=== PATIENT | female | born 1960 | race Caucasian/White ===

== ENCOUNTER 2016-08-03 21:57 | Emergency (ER) | payer OTHER ==
[2016-08-03] MEDS ORDERED: SODIUM CHLORIDE 0.9% 500 ML IV STA (22:56)
[2016-08-03] MEDS ORDERED: RX INFO: IV CONTRAST WAS GIVEN 1 EACH MISC MISCELLANE PRN (22:56)
--- NOTE | 2016-08-03 22:59 | ED ---
General Adult HPI - General Chief complaint: Shortness of Breath Stated complaint: coughing up blood/high heart rate/SOB Time Seen by Provider: 08/03/16 22:50 Source: patient, RN notes reviewed Mode of arrival: wheelchair Limitations: no limitations - History of Present Illness Initial comments: 56-year-old female presents to the emergency department with a chief complaint of shortness of breath. Patient states that she has esophageal cancer she currently is undergoing chemo and radiation. Patient states the last 2 weeks she's noticed some shortness of breath and now she started to cough up some blood. Patient states that she does notice that she is more short of breath she and her family members called the family care doctor who wanted her to be seen. Patient states she hasn't noticed any leg swelling or pain. Patient denies any history of blood clots. Patient states that she doesn't have any chest pain but is having short of breath. Patient states that seems to be worsening so she was concerned.Patient denies any recent fever, chills, back pain, abdominal pain, nausea vomiting, numbness or tingling, dysuria or hematuria, constipation or diarrhea, headaches or visual changes, or any other current symptoms. - Related Data Home Medications Medication Instructions Recorded Confirmed ALPRAZolam [Xanax] 0.5 mg PO TID PRN 08/03/16 08/03/16 Hydrochlorothiazide [Hydrodiuril] 25 mg PO DAILY 08/03/16 08/03/16 Methylphenidate HCl 20 mg PO QID 08/03/16 08/03/16 [Methylphenidate HCl ER] Metoclopramide [Reglan] 10 mg PO TID 08/03/16 08/03/16 Nystatin 100,000 Unit/ml Susp 5 ml PO QID 08/03/16 08/03/16 [Mycostatin Oral Susp] Omeprazole 20 mg PO BID 08/03/16 08/03/16 Prochlorperazine [Compazine] 10 mg PO Q8H 08/03/16 08/03/16 Triamterene-Hctz 37.5-25Mg 1 cap PO DAILY 08/03/16 08/03/16 [Dyazide 37.5-25 Capsule] Venlafaxine HCl [Effexor XR] 150 mg PO 08/03/16 busPIRone HCL 10 mg PO BID 08/03/16 08/03/16 Allergies Allergy/AdvReac Type Severity Reaction Status Date / Time cefaclor Allergy Rash/Hives Verified 08/03/16 22:40 cephalexin Allergy Unknown Verified 08/03/16 22:40 escitalopram Allergy Unknown Verified 08/03/16 22:40 Penicillins Allergy Rash/Hives Verified 08/03/16 22:40 povidone-iodine Allergy Rash/Hives Verified 08/03/16 22:40 Review of Systems ROS Statement: Those systems with pertinent positive or pertinent negative responses have been documented in the HPI. ROS Other: All systems not noted in ROS Statement are negative. Past Medical History Past Medical History: Cancer History of Any Multi-Drug Resistant Organisms: None Reported Past Surgical History: Section, Cholecystectomy, Hysterectomy, Orthopedic Surgery Additional Past Surgical History / Comment(s): colonoscopy, oopherectomy Past Psychological History: No Psychological Hx Reported Smoking Status: Current some day smoker Past Alcohol Use History: None Reported Past Drug Use History: None Reported General Exam - General Exam Comments Initial Comments: General: The patient is awake and alert, in no distress, and does not appear acutely ill. Eye: Pupils are equal, round and reactive to light, extra-ocular movements are intact; there is normal conjunctiva bilaterally. No signs of icterus. Ears, nose, mouth and throat: There are moist mucous membranes and no oral lesions. Neck: The neck is supple, there is no tenderness. Cardiovascular: There is a regular rate and rhythm. No murmur, rub or gallop is appreciated. Respiratory: Lungs are clear to auscultation, respirations are non-labored, breath sounds are equal. No wheezes, stridor, rales, or rhonchi. Gastrointestinal: Soft, non-distended, non-tender abdomen without masses or organomegaly noted. There is no rebound or guarding present. No CVA tenderness. Bowel sounds are unremarkable. Back: There is no tenderness to palpation in the midline. There is no obvious deformity. No rashes noted. Musculoskeletal: Normal ROM, no tenderness, There is no pedal edema. There is no calf tenderness or swelling to the left. Patient does have tenderness in the right calf.. Sensation intact. Pulses equal bilaterally 2+. Neurological: CN II-XII intact, There are no obvious motor or sensory deficits. Coordination appears grossly intact. Speech is normal. Skin: Skin is warm and dry and no rashes or lesions are noted. Psychiatric: Cooperative, appropriate mood & affect, normal judgment. Limitations: no limitations Course Vital Signs 08/03/16 08/04/16 22:31 01:32 Temperature 98.5 F 97.1 F L Pulse Rate 114 H 106 H Respiratory 20 18 Rate Blood Pressure 120/75 114/69 O2 Sat by Pulse 94 L 95 Oximetry EKG Findings - EKG Comments: EKG Findings:: Sinus tachycardia, prolonged QT, ventricular rate 108, AR interval 150, QRS duration 66 Medical Decision Making - Medical Decision Making 56 yo female presents to the emergency department with a chief complaint of shortness of breath. At this time patient's CT angiogram is negative for PE. Patient's symptoms have improved here in the emergency department. Patient was offered admission for her shortness of breath but she states that now discharged blood clot she would like to go home. We did discuss we will discharge her home. Ultrasound of the right leg to just has some tenderness on exam is reviewed and as well negative. We discussed continued follow-up with her doctor. We discussed return parameters. We did hydrate the patient is well. Patient stated that she understood all questions were answered. Her oxygen did improve in the room and she is feeling better. She will be discharged. - Lab Data Result diagrams: 08/03/16 23:24 08/03/16 23:24 Lab Results 08/03/16 08/03/16 08/03/16 Range/Units 23:24 23:24 23:24 WBC 6.3 (3.8-10.6) k/uL RBC 5.17 (3.80-5.40) m/uL Hgb 16.4 H (11.4-16.0) gm/dL Hct 48.4 H (34.0-46.0) % MCV 93.6 (80.0-100.0) fL MCH 31.7 (25.0-35.0) pg MCHC 33.9 (31.0-37.0) g/dL RDW 15.0 (11.5-15.5) % Plt Count 177 (150-450) k/uL Neutrophils % 80 % Lymphocytes % 11 % Monocytes % 5 % Eosinophils % 2 % Basophils % 0 % Neutrophils # 5.0 (1.3-7.7) k/uL Lymphocytes # 0.7 L (1.0-4.8) k/uL Monocytes # 0.3 (0-1.0) k/uL Eosinophils # 0.1 (0-0.7) k/uL Basophils # 0.0 (0-0.2) k/uL PT (9.0-12.0) sec INR (<1.1) APTT (22.0-30.0) sec Sodium 138 (137-145) mmol/L Potassium 3.4 L (3.5-5.1) mmol/L Chloride 101 (98-107) mmol/L Carbon Dioxide 25 (22-30) mmol/L Anion Gap 12 mmol/L BUN 13 (7-17) mg/dL Creatinine 0.60 (0.52-1.04) mg/dL Est GFR (MDRD) Af Amer >60 (>60 ml/min/1.73 sqM) Est GFR (MDRD) Non-Af >60 (>60 ml/min/1.73 sqM) Glucose 173 H (74-99) mg/dL Calcium 9.2 (8.4-10.2) mg/dL Total Bilirubin 0.3 (0.2-1.3) mg/dL AST 24 (14-36) U/L ALT 24 (9-52) U/L Alkaline Phosphatase 88 (38-126) U/L Total Creatine Kinase 23 L (30-135) U/L CK-MB (CK-2) 0.4 (0.0-2.4) ng/mL CK-MB (CK-2) Rel Index 1.7 Troponin I <0.012 (0.000-0.034) ng/mL NT-Pro-B Natriuret Pep pg/mL Total Protein 6.6 (6.3-8.2) g/dL Albumin 3.7 (3.5-5.0) g/dL 08/03/16 08/03/16 Range/Units 23:24 23:24 WBC (3.8-10.6) k/uL RBC (3.80-5.40) m/uL Hgb (11.4-16.0) gm/dL Hct (34.0-46.0) % MCV (80.0-100.0) fL MCH (25.0-35.0) pg MCHC (31.0-37.0) g/dL RDW (11.5-15.5) % Plt Count (150-450) k/uL Neutrophils % % Lymphocytes % % Monocytes % % Eosinophils % % Basophils % % Neutrophils # (1.3-7.7) k/uL Lymphocytes # (1.0-4.8) k/uL Monocytes # (0-1.0) k/uL Eosinophils # (0-0.7) k/uL Basophils # (0-0.2) k/uL PT 9.7 (9.0-12.0) sec INR 0.9 (<1.1) APTT 22.1 (22.0-30.0) sec Sodium (137-145) mmol/L Potassium (3.5-5.1) mmol/L Chloride (98-107) mmol/L Carbon Dioxide (22-30) mmol/L Anion Gap mmol/L BUN (7-17) mg/dL Creatinine (0.52-1.04) mg/dL Est GFR (MDRD) Af Amer (>60 ml/min/1.73 sqM) Est GFR (MDRD) Non-Af (>60 ml/min/1.73 sqM) Glucose (74-99) mg/dL Calcium (8.4-10.2) mg/dL Total Bilirubin (0.2-1.3) mg/dL AST (14-36) U/L ALT (9-52) U/L Alkaline Phosphatase (38-126) U/L Total Creatine Kinase (30-135) U/L CK-MB (CK-2) (0.0-2.4) ng/mL CK-MB (CK-2) Rel Index Troponin I (0.000-0.034) ng/mL NT-Pro-B Natriuret Pep 48 pg/mL Total Protein (6.3-8.2) g/dL Albumin (3.5-5.0) g/dL Disposition Clinical Impression: Dehydration Disposition: HOME SELF-CARE Condition: Stable Instructions: Dehydration (ED) Additional Instructions: Please use medication as discussed. Please follow up with family doctor if symptoms have not improved over the next two days. Please return to the emergency room if your symptoms increase or worsen or for any other concerns. Referrals: Eros Carlson DO [Primary Care Provider] - 1-2 days Time of Disposition: 02:25
[2016-08-03 23:37] LABS: Basophils % (A) 0 %; CH 31.9; CHCM 34.2; Eosinophils # (A) 0.1 k/uL (0-0.7); Eosinophils % (A) 2 %; HCT 48.4 % (34.0-46.0); HDW 2.39; HGB 16.4 gm/dL (11.4-16.0); Luc # (Auto) 0.06; Luc % (Auto) 1; Lymphocytes # (A) 0.7 k/uL (1.0-4.8); Lymphocytes % (A) 11 %; MCH 31.7 pg (25.0-35.0); MCHC 33.9 g/dL (31.0-37.0); MCV 93.6 fL (80.0-100.0); Mean Platelet Volume 7.7; Monocytes # (A) 0.3 k/uL (0-1.0); Monocytes % (A) 5 %; Neutrophils % (A) 80 %; RBC 5.17 m/uL (3.80-5.40); WBC 6.3 k/uL (3.8-10.6); WBC (Perox) 6.29
[2016-08-03 23:48] LABS: ALT 24 U/L (9-52); AST 24 U/L (14-36); Alkaline Phosphatase 88 U/L (38-126); Anion Gap 12 mmol/L; Blood Urea Nitrogen 13 mg/dL (7-17); Calcium 9.2 mg/dL (8.4-10.2); Carbon Dioxide 25 mmol/L (22-30); Chloride 101 mmol/L (98-107); Glucose 173 mg/dL (74-99); Non-African American GFR(MDRD) >60 (>60 ml/min/1.73 sqM); Potassium 3.4 mmol/L (3.5-5.1); Sodium 138 mmol/L (137-145); Total Bilirubin 0.3 mg/dL (0.2-1.3); Total Protein 6.6 g/dL (6.3-8.2)
[2016-08-03 23:54] LABS: INR 0.9 (<1.1); Partial Thromboplastin Time 22.1 sec (22.0-30.0); Prothrombin Time 9.7 sec (9.0-12.0)
[2016-08-04 00:14] LABS: Creatine Kinase 23 U/L (30-135)
[2016-08-04 00:28] LABS: Creatine Kinase MB 0.4 ng/mL (0.0-2.4); Troponin I <0.012 ng/mL (0.000-0.034)
--- NOTE | 2016-08-04 00:46 | CT ---
EXAMINATION TYPE: CT angio chest DATE OF EXAM: 08/04/2016 12:28 AM COMPARISON: NONE HISTORY: R/O PE, chest pain CT DLP: 652.40 mGycm Automated exposure control for dose reduction was used. CONTRAST: CTA scan of the thorax is performed with IV Contrast, patient injected with 60 mL of Omnipaque 350, p ulmonary embolism protocol. . FINDINGS: There are 3-D post processed images. The lungs are clear of infiltrate. There is no evidence of a pulmonary mass. There is no pleural effu wood. Heart size is normal. There is no pericardial effusion. There is no mediastinal adenopathy. There are no hilar masses. I see no filling defects in the pulmonary arteries. There is no evidence of aortic aneurysm or dissection. The bony thorax appears intact. There is spurring in the thoracic spine. IMPRESSION: NEGATIVE CT ANGIOGRAM OF THE CHEST. NO EVIDENCE OF PULMONARY EMBOLISM.
[2016-08-04] MEDS ORDERED: SODIUM CHLORIDE 0.9% 1,000 ML IV STA (00:53)
[2016-08-04 01:33] VITALS: RESP 18
--- NOTE | 2016-08-04 02:23 | US ---
EXAMINATION TYPE: US venous doppler duplex LE RT DATE OF EXAM: 08/04/2016 12:52 AM COMPARISON: NONE CLINICAL HISTORY: Pain. Sob, tender rt leg to the touch, vomiting blood with a history of esophageal cancer and fibromyalgia SIDE PERFORMED: Right VESSELS IMAGED: External Iliac Vein (EIV) Common Femoral Vein Deep Femoral Vein Greater Saphenous Vein * Femoral Vein Popliteal Vein Small Saphenous Vein * Proximal Calf Veins (* superficial vessels) TECHNOLOGIST IMPRESSION: wnl Right Leg: Negative as seen for DVT IMPRESSION: Normal exam. No evidence of deep venous thrombosis in the right leg.
[2016-08-04 02:31] VITALS: BP 127/76; PULSE 94; TEMP 97.9
== END 2016-08-04 02:30 | disposition home or self-care (01) ==
LOC: EC 21:57
DX: E86.0 Dehydration (principal); C15.9 Malignant neoplasm of esophagus, unspecified; Z92.21 Personal history of antineoplastic chemotherapy; Z79.899 Other long term (current) drug therapy; Z88.1 Allergy status to other antibiotic agents; Z88.0 Allergy status to penicillin; Z88.8 Allergy status to other drugs, medicaments and biological substances; F17.200 Nicotine dependence, unspecified, uncomplicated
CPT/HCPCS: 36415; 93005; 83880; 80053; 82550; 82553; 84484; 85025; 85610; 85730; 93971; 71275; 99285; 96360 ×2; 96361; Q9967

== ENCOUNTER → 2016-09-13 | Outpatient (CLI) | payer OTHER ==
--- NOTE | 2016-09-14 06:44 | PE ---
EXAMINATION TYPE: PET CT fusion skull to thigh DATE OF EXAM: 09/13/2016 1:23 PM CLINICAL HISTORY: Esophageal cancer follow up study after completing chemotherapy August 19, 2016 a nd radiation treatment August 22, 2016 TECHNIQUE: Following the intravenous administration of 11.97 mCi of F-18 FDG, whole body images are performed from the skull base to the midthigh. Images are reviewed on the computer in the coronal, axial, and sagittal planes. Reconstructed rotating images are created on independent workstation and reviewed on the computer. A non-contrast CT is performed in conjunction with the PET scan. COMPARISON: Prior outside PET/CT June 23, 2016 FINDINGS: SKULL BASE AND NECK: No new areas of abnormal hypermetabolic uptake are seen in the neck. CHEST, MEDIASTINUM, AND HILAR REGION: There is marked abnormal interval improvement in hypermetabolic wall thickening involving distal esophagus extending through diaphragmatic hiatus into the proximal stomach. Mild wall thickening remains present at hiatus improved from prior study, mild increased hy permetabolic uptake is still present with max SUV of 4.46 near axial image 110 noted. No new areas of abnormal hypermetabolic uptake are seen in the thorax. No new adenopathy is evident. Small hiatal hernia remains present. ABDOMEN AND PELVIS: No new areas of abnormal hypermetabolic uptake are identified in the abdomen or p cristine. Normal excretion in bladder is seen. OSSEOUS STRUCTURES: No suspicious hypermetabolic uptake is seen in osseous structures. OTHER CT: Dependent atelectatic change is seen in both lungs. There are some coronary artery calcification the proximal LAD near axial image 83. Liver is diffusely hypodense consistent with fatty infiltration. Cholecystectomy clips are redemonstr ated. There is mild to moderate calcified atherosclerotic change of the abdominal aorta and iliac branch ve ssels. There are occasional diverticula in the left and sigmoid colon. No acute diverticulitis is present. Uterus is surgically absent or markedly atrophic in appearance. There is facet arthropathy lower lumbar levels. There is multilevel spurring in the thoracolumbar spi ne. IMPRESSION: Positive response with improvement in length and abnormal hypermetabolic uptake of primar y neoplasm distal esophageal level extending into proximal stomach. No new areas of abnormal uptake n oted. RECIST CRITERIA: IMPROVING DISEASE: PARTIAL RESPONSE.
== END | disposition home or self-care (01) ==
LOC: RADPETMAIN 08:47
PROVIDERS: ATTEND Radiology Radiation Oncology
DX: C15.5 Malignant neoplasm of lower third of esophagus (principal)
CPT/HCPCS: 78815; A9552

== ENCOUNTER 2016-12-26 16:54 | Emergency (ER) | payer OTHER ==
[2016-12-26] MEDS ORDERED: ONDANSETRON 4 MG/2 ML VIAL IVP STA (17:27)
[2016-12-26] MEDS ORDERED: SODIUM CHLORIDE 0.9% 500 ML IV STA (17:27)
--- NOTE | 2016-12-26 18:16 | ED ---
Nausea/Vomiting/Diarrhea HPI - General Chief complaint: Nausea/Vomiting/Diarrhea Stated complaint: Abd Pain, poss infection at j tube site Time Seen by Provider: 12/26/16 17:26 Source: patient, RN notes reviewed Mode of arrival: ambulatory Limitations: no limitations - History of Present Illness Initial comments: This a 56-year-old female presents emergency Department with concerns of possible infection around surgical site. Patient states she had placement of J- tube at [facility] and surgery of her esophagus and stomach. Patient states she 's been treated for esophageal cancer. Patient states that she was discharged a few days ago and has been doing to feeds at home. She states that they do make her nauseated which is difficult. She states her pain is actually improving compared to when she was in the hospital. Patient states only care nurse was concerned that there are some redness around her tube site and thought she needed to be evaluated. Patient denies any fevers or chills. There is no drainage or other site states there was a small amount on her dressing. Patient states she has multiple pains on her abdomen from surgery and also an old site from the drain tube on her right side. - Related Data Home Medications Medication Instructions Recorded Confirmed Methylphenidate HCl 20 mg PEG/G-TUBE QID 08/03/16 12/26/16 [Methylphenidate HCl ER] Triamterene-Hctz 37.5-25Mg 1 cap PEG/G-TUBE DAILY 08/03/16 12/26/16 [Dyazide 37.5-25 Capsule] busPIRone HCL 10 meq PEG/G-TUBE BID 08/03/16 12/26/16 Hydrocodone/Acetaminophen 15 ml PEG/G-TUBE Q4HR PRN 12/26/16 12/26/16 [Hydrocodon-Acetamin 7.5-325/15] Metoprolol Tartrate 25 mg PEG/G-TUBE BID 12/26/16 12/26/16 Ondansetron Odt [Zofran Odt] 4 mg PEG/G-TUBE Q8HR PRN 12/26/16 12/26/16 Ranitidine Syrup [Zantac Syrup] 150 mg PEG/G-TUBE BID 12/26/16 12/26/16 Venlafaxine HCl [Effexor XR] 75 mg PEG/G-TUBE DAILY 12/26/16 12/26/16 Previous Rx's Medication Instructions Recorded Sulfamethox-Tmp 200-40Mg/5Ml 20 ml PO Q12HR #400 ml 12/26/16 [Bactrim Suspension] Allergies Allergy/AdvReac Type Severity Reaction Status Date / Time cefaclor Allergy Rash/Hives Verified 12/26/16 18:37 cephalexin Allergy Unknown Verified 12/26/16 18:37 escitalopram Allergy Unknown Verified 12/26/16 18:37 Penicillins Allergy Rash/Hives Verified 12/26/16 18:37 povidone-iodine Allergy Rash/Hives Verified 12/26/16 18:37 Review of Systems ROS Statement: Those systems with pertinent positive or pertinent negative responses have been documented in the HPI. ROS Other: All systems not noted in ROS Statement are negative. Past Medical History Past Medical History: Cancer History of Any Multi-Drug Resistant Organisms: None Reported Past Surgical History: Section, Cholecystectomy, Hysterectomy, Orthopedic Surgery Additional Past Surgical History / Comment(s): colonoscopy, oopherectomy esphogheal surg Past Psychological History: No Psychological Hx Reported Smoking Status: Current some day smoker Past Alcohol Use History: None Reported Past Drug Use History: None Reported General Exam Limitations: no limitations General appearance: alert, in no apparent distress Respiratory exam: Present: normal lung sounds bilaterally. Absent: respiratory distress, wheezes, rales, rhonchi, stridor Cardiovascular Exam: Present: regular rate, normal rhythm, normal heart sounds. Absent: systolic murmur, diastolic murmur, rubs, gallop, clicks GI/Abdominal exam: Present: soft, tenderness (Minimal diffuse), normal bowel sounds, other (There are multiple surgical incisions noted with minimal erythema G-tube is in place sutured with slightly extension of the erythema to the 7 o'clock position area is minimally tender no obvious purulent drainage). Absent: distended, guarding, rebound, rigid Back exam: Absent: CVA tenderness (R), CVA tenderness (L) Skin exam: Present: warm, dry, intact, normal color. Absent: rash Course Vital Signs 12/26/16 17:17 Temperature 97.4 F L Pulse Rate 101 H Respiratory 18 Rate Blood Pressure 139/67 O2 Sat by Pulse 95 Oximetry Medical Decision Making - Medical Decision Making 56-year-old female presented for abdominal bloating possible infection. There is early signs of some cellulitis. Patient was placed on Bactrim at this time as she has multiple ALLERGIES to sulfa swan's in consult. Patient lab work otherwise stable and x-ray does not show any free air. Patient will be discharged with close follow-up return parameters were discussed. - Lab Data Result diagrams: 12/26/16 18:28 12/26/16 18:28 Lab Results 12/26/16 12/26/16 12/26/16 Range/Units 18:28 18:28 18:44 WBC 6.5 (3.8-10.6) k/uL RBC 4.52 (3.80-5.40) m/uL Hgb 14.3 (11.4-16.0) gm/dL Hct 43.6 (34.0-46.0) % MCV 96.4 (80.0-100.0) fL MCH 31.6 (25.0-35.0) pg MCHC 32.8 (31.0-37.0) g/dL RDW 13.5 (11.5-15.5) % Plt Count 415 (150-450) k/uL Neutrophils % 73 % Lymphocytes % 14 % Monocytes % 7 % Eosinophils % 3 % Basophils % 1 % Neutrophils # 4.7 (1.3-7.7) k/uL Lymphocytes # 0.9 L (1.0-4.8) k/uL Monocytes # 0.4 (0-1.0) k/uL Eosinophils # 0.2 (0-0.7) k/uL Basophils # 0.0 (0-0.2) k/uL Sodium 136 L (137-145) mmol/L Potassium 4.2 (3.5-5.1) mmol/L Chloride 97 L (98-107) mmol/L Carbon Dioxide 27 (22-30) mmol/L Anion Gap 12 mmol/L BUN 11 (7-17) mg/dL Creatinine 0.73 (0.52-1.04) mg/dL Est GFR (MDRD) Af Amer >60 (>60 ml/min/1.73 sqM) Est GFR (MDRD) Non-Af >60 (>60 ml/min/1.73 sqM) Glucose 104 H (74-99) mg/dL Calcium 9.4 (8.4-10.2) mg/dL Total Bilirubin 0.5 (0.2-1.3) mg/dL AST 28 (14-36) U/L ALT 26 (9-52) U/L Alkaline Phosphatase 126 (38-126) U/L Total Protein 7.2 (6.3-8.2) g/dL Albumin 4.0 (3.5-5.0) g/dL Amylase <30 L (30-110) U/L Lipase 32 (23-300) U/L Urine Color Yellow Urine Appearance Clear (Clear) Urine pH 6.0 (5.0-8.0) Ur Specific [place]vin 1.012 (1.001-1.035) Urine Protein Negative (Negative) Urine Glucose (UA) Negative (Negative) Urine Ketones Negative (Negative) Urine Blood Negative (Negative) Urine Nitrite Negative (Negative) Urine Bilirubin Negative (Negative) Urine Urobilinogen <2.0 (<2.0) mg/dL Ur Leukocyte Esterase Negative (Negative) Disposition Clinical Impression: Surgical wound infection, Nausea Disposition: HOME SELF-CARE Condition: Stable Instructions: Wound Infection (ED) Additional Instructions: Please return to the Emergency Department if symptoms worsen or any other concerns. Prescriptions: Sulfamethox-Tmp 200-40Mg/5Ml [Bactrim Suspension] 20 ml PO Q12HR #400 ml Referrals: Eros Carlson DO [Primary Care Provider] - 1-2 days Time of Disposition: 19:07
[2016-12-26 18:52] LABS: Basophils % (A) 1 %; CH 32.8; CHCM 34.1; Eosinophils # (A) 0.2 k/uL (0-0.7); Eosinophils % (A) 3 %; HCT 43.6 % (34.0-46.0); HDW 2.99; HGB 14.3 gm/dL (11.4-16.0); Luc # (Auto) 0.16; Luc % (Auto) 3; Lymphocytes # (A) 0.9 k/uL (1.0-4.8); Lymphocytes % (A) 14 %; MCH 31.6 pg (25.0-35.0); MCHC 32.8 g/dL (31.0-37.0); MCV 96.4 fL (80.0-100.0); Mean Platelet Volume 7.3; Monocytes # (A) 0.4 k/uL (0-1.0); Monocytes % (A) 7 %; Neutrophils # (A) 4.7 k/uL (1.3-7.7); Neutrophils % (A) 73 %; RBC 4.52 m/uL (3.80-5.40); RDW 13.5 % (11.5-15.5); WBC 6.5 k/uL (3.8-10.6); WBC (Perox) 6.46
--- NOTE | 2016-12-26 18:59 | XR ---
EXAMINATION TYPE: XR KUB DATE OF EXAM: 12/26/2016 COMPARISON: NONE HISTORY: Pain at the tube site TECHNIQUE: 2 views FINDINGS: There is some blunting of costophrenic angles. There is a large hiatal hernia. There are cl ips from cholecystectomy. There is a jejunostomy tube in the left mid abdomen. There is no sign of fr ee air. I see no sign of a bowel obstruction. There are calcifications in the pelvis that are probabl y vascular. There are no pathologic calcifications over the kidneys. IMPRESSION: Jejunostomy tube appears to be in good position. No free air. Bilateral pleural effusions. Hiatal hernia. This is apparently a gastric pull-through procedure.
[2016-12-26 19:00] LABS: ALT 26 U/L (9-52); AST 28 U/L (14-36); Alkaline Phosphatase 126 U/L (38-126); Amylase <30 U/L (30-110); Anion Gap 12 mmol/L; Blood Urea Nitrogen 11 mg/dL (7-17); Calcium 9.4 mg/dL (8.4-10.2); Carbon Dioxide 27 mmol/L (22-30); Chloride 97 mmol/L (98-107); Glucose 104 mg/dL (74-99); Non-African American GFR(MDRD) >60 (>60 ml/min/1.73 sqM); Potassium 4.2 mmol/L (3.5-5.1); Sodium 136 mmol/L (137-145); Total Bilirubin 0.5 mg/dL (0.2-1.3); Total Protein 7.2 g/dL (6.3-8.2)
[2016-12-26 19:03] LABS: Appearance,Urine Clear (Clear); Bilirubin,Urine Negative (Negative); Glucose,Urine (UA) Negative (Negative); Ketones,Urine Negative (Negative); Leukocyte Esterase,Urine Negative (Negative); Nitrite,Urine Negative (Negative); Protein,Urine Negative (Negative); Specific Gravity,Urine 1.012 (1.001-1.035); UA Billing (MACRO vs. MICRO) CHEM; Urobilinogen,Urine <2.0 mg/dL (<2.0)
[2016-12-26 19:19] VITALS: BP 132/85; PULSE 102; RESP 20; TEMP 98.7
== END 2016-12-26 19:26 | disposition home or self-care (01) ==
LOC: EC 16:54
DX: T81.4XXA Infection following a procedure, initial encounter (principal); K94.22 Gastrostomy infection; R11.2 Nausea with vomiting, unspecified; F17.200 Nicotine dependence, unspecified, uncomplicated; Z79.899 Other long term (current) drug therapy; Z88.0 Allergy status to penicillin; Z88.1 Allergy status to other antibiotic agents; Z88.8 Allergy status to other drugs, medicaments and biological substances; Z85.01 Personal history of malignant neoplasm of esophagus; Y83.3 Surgical operation with formation of external stoma as the cause of abnormal reaction of the patient, or of later complication, without mention of misadventure at the time of the procedure
CPT/HCPCS: 36415; 80053; 82150; 83605; 83690; 85025; 81003; 74000; 99284; 96374; 96361; J2405

== ENCOUNTER → 2017-04-22 | Outpatient (CLI) | payer OTHER ==
--- NOTE | 2017-04-22 16:27 | CT ---
EXAMINATION TYPE: CT chest abdomen w con DATE OF EXAM: 04/22/2017 INDICATION: Esophageal CA COMPARISON: CTA chest 08/04/2016 CT DLP: 1657 mGycm CONTRAST: Performed with Oral Contrast and with IV Contrast, patient injected with 100 mL of Omnipaque 300. TECHNIQUE: Axial images at 5 mm thick sections. Reconstructed images in the coronal plane. Delayed images through the kidneys. FINDINGS: CT CHEST: Portion of the thyroid visualized is normal. There is a gastric pull-through. No suspicious esophageal or proximal gastric masses are identified. There is contrast within the intrathoracic pull-through stomach. Contrast within the upper abdomen lo ops of bowel. No suspicious lung nodules or focal infiltrates are present. No enlarged mediastinal or hilar adenopathy is evident. The ascending aorta diameter at the level of the main pulmonary artery is 4.0 cm. The main pulmonary artery diameter at the bifurcation is 2.[address] ABDOMEN: Liver: There appears to be some fatty infiltration within the upper right lobe liver medially. No mas s effect in the parenchymal vessels evident. No discrete masses identified. Spleen: Normal Pancreas: Atrophic Adrenal glands: The adrenal glands are normal. Gallbladder: Surgically absent Kidneys: No masses are evident. No hydronephrosis is present. No cysts are present. Delayed images were obtained through the kidneys, which remain unremarkable. Aorta: Vascular calcification is within the aorta. Inferior vena cava: Normal. Loops of bowel lacking oral contrast within the abdomen appear unremarkable. There is limited evaluat ion of the loops of bowel due to lack of significant oral contrast. IMPRESSIONS: 1. Status post gastric pull-through. No suspicious interval changes are evident
== END | disposition home or self-care (01) ==
LOC: RADCTMAIN 13:10
PROVIDERS: ATTEND Radiology Radiation Oncology
DX: C15.5 Malignant neoplasm of lower third of esophagus (principal); Z88.0 Allergy status to penicillin; Z88.1 Allergy status to other antibiotic agents; Z88.8 Allergy status to other drugs, medicaments and biological substances
CPT/HCPCS: 71260; 74160; Q9967

== ENCOUNTER → 2017-10-23 | Outpatient (CLI) | payer OTHER ==
[2017-10-23 12:31] LABS: Blood Urea Nitrogen 13 mg/dL (7-17)
--- NOTE | 2017-10-23 14:14 | CT ---
EXAMINATION TYPE: CT ChestAbdPelvis w con DATE OF EXAM: 10/23/2017 COMPARISON: 04/22/2017 HISTORY: Patient has no complaints at time of study. Follow up study for known esophageal CA. CT DLP: 1583 mGycm CONTRAST: CT scan of the chest, abdomen and pelvis is performed with Oral Contrast and with IV Contrast, patien t injected with 100 mL of Isovue 300. CT Chest: LUNGS: The lungs are clear and free of infiltrate or atelectasis. No pulmonary nodule or mass is det ected. No pleural effusion or CT evidence of interstitial lung disease. MEDIASTINUM: Changes of the gastric pull-through procedure with esophagectomy. Persistent elevation l eft hemidiaphragm. Thoracic aorta is of normal caliber. The heart is not enlarged. No evidence for mediastinal mass or adenopathy. HILAR STRUCTURES: No evidence for mass. No hilar adenopathy is appreciated. OTHER: No significant abnormality. CONTRAST CT ABDOMEN AND PELVIS FINDINGS: LIVER/GB: The gallbladder is surgically absent. There is evidence of hepatic steatosis. No space occu pying hepatic lesion. Biliary tree is of normal caliber. PANCREAS: No inflammation. No distinct mass. SPLEEN: No splenic enlargement. No lesion seen. ADRENALS: No nodule. No thickening. KIDNEYS/BLADDER: Areas of renal parenchymal thinning right kidney. No hydronephrosis. No nephrolithi asis. No disctinct renal mass. BOWEL: Normal appendix. Normal bowel caliber. No inflammation. Diverticulosis of left hemicolon wit hout diverticulitis. Less than ideal distention left hemicolon limiting evaluation. GENITAL ORGANS: No gross abnormality. LYMPH NODES: No greater than 1cm abdominal or pelvic lymph nodes are appreciated. AORTA: No significant abnormality. OSSEOUS STRUCTURES: No significant abnormality is seen. OTHER: No significant additional abnormality is seen. IMPRESSION: 1. Stable features of esophagectomy with gastric pull-through procedure. 2. No evidence for metastatic disease. 3. Fatty liver. 4. Elevation left hemidiaphragm is stable.
== END | disposition home or self-care (01) ==
LOC: RADCTMAIN 11:32
PROVIDERS: ATTEND Radiology Radiation Oncology
DX: C15.5 Malignant neoplasm of lower third of esophagus (principal); K76.0 Fatty (change of) liver, not elsewhere classified; J98.6 Disorders of diaphragm; Z88.0 Allergy status to penicillin; Z88.1 Allergy status to other antibiotic agents; Z88.8 Allergy status to other drugs, medicaments and biological substances; Z90.49 Acquired absence of other specified parts of digestive tract
CPT/HCPCS: 82565; 84520; 71260; 74177; 36415; Q9967

== ENCOUNTER 2018-03-25 17:52 | Emergency (ER) | payer OTHER ==
--- NOTE | 2018-03-25 18:54 | ED ---
General Adult HPI - General Chief complaint: ENT Stated complaint: FB in throat Time Seen by Provider: 03/25/18 18:17 Source: patient, RN notes reviewed, old records reviewed Mode of arrival: ambulatory Limitations: no limitations - History of Present Illness Initial comments: This is a 57-year-old female the ER for evaluation of esophageal foreign body. Patient states this occurred to eating eggs and steak yesterday. She doesn't know some swelling of her esophagus with history of esophageal disease, she feels like a foreign bodies in her esophagus currently. Patient surgical for. Esophagus. She also has been seen by GI in the area for possible evaluation regarding difficulty swallowing. No significant findings were found - Related Data Home Medications Medication Instructions Recorded Confirmed Methylphenidate HCl 20 mg PO QID 08/03/16 03/25/18 [Methylphenidate HCl ER] busPIRone HCL 10 meq PO BID 08/03/16 03/25/18 Metoprolol Tartrate 25 mg PO BID 12/26/16 03/25/18 Venlafaxine HCl [Effexor XR] 75 mg PO BID 12/26/16 03/25/18 Omeprazole [PriLOSEC] 20 mg PO BID 06/15/17 03/25/18 Aspirin/Sod Bicarb/Citric Acid 1 tab PO Q6H PRN 03/25/18 03/25/18 [Monique-[place] Original Tab Eff] Ciprofloxacin HCl [Cipro] 500 mg PO BID 03/25/18 03/25/18 Multivitamins, Thera [Multivitamin 1 tab PO DAILY 03/25/18 03/25/18 (formulary)] Allergies Allergy/AdvReac Type Severity Reaction Status Date / Time adhesive tape Allergy REDNESS Verified 03/25/18 18:23 AND BLISTERS cefaclor Allergy Rash/Hives Verified 03/25/18 18:23 cephalexin Allergy Rash/Hives Verified 03/25/18 18:23 escitalopram Allergy Rash/Hives Verified 03/25/18 18:23 Penicillins Allergy Rash/Hives Verified 03/25/18 18:23 povidone-iodine Allergy Rash/Hives Verified 03/25/18 18:23 Review of Systems ROS Statement: Those systems with pertinent positive or pertinent negative responses have been documented in the HPI. ROS Other: All systems not noted in ROS Statement are negative. Past Medical History Past Medical History: Cancer, GERD/Reflux Additional Past Medical History / Comment(s): COLEMAN'S ESOPHAGUS , esophageal cancer-HAD CHEMO. SORES ON LT FOREARM-HEALED. NARCOLEPSY. CONSTANT VOMITTING. OCCASSIONAL BLE EDEMA History of Any Multi-Drug Resistant Organisms: MRSA Date of last positivie culture/infection: 12/2016 MDRO Source:: PEG TUBE SITE Past Surgical History: Section, Cholecystectomy, Hysterectomy, Orthopedic Surgery, Tubal Ligation Additional Past Surgical History / Comment(s): ,colonoscopy, oopherectomy, 2/ 3rds ESOPHAGECTOMY, 1/3rd GASTRECTOMY, PEG TUBE INSERTION AND REMOVAL R/T INFECTION. SCOPE LT KNEE, EGD, CYST REMOVED RT WRIST, C-SECT X 4, Past Anesthesia/Blood Transfusion Reactions: No Reported Reaction Past Psychological History: Anxiety, Depression Smoking Status: Current some day smoker Past Alcohol Use History: None Reported Past Drug Use History: None Reported - Past Family History Mother Family Medical History: Cancer Sister(s) Family Medical History: Cancer General Exam Limitations: no limitations General appearance: alert, in no apparent distress Head exam: Present: atraumatic, normocephalic, normal inspection Eye exam: Present: normal appearance, PERRL, EOMI. Absent: scleral icterus, conjunctival injection, periorbital swelling ENT exam: Present: normal exam, mucous membranes moist Neck exam: Present: normal inspection. Absent: tenderness, meningismus, lymphadenopathy Respiratory exam: Present: normal lung sounds bilaterally. Absent: respiratory distress, wheezes, rales, rhonchi, stridor Cardiovascular Exam: Present: regular rate, normal rhythm, normal heart sounds. Absent: systolic murmur, diastolic murmur, rubs, gallop, clicks GI/Abdominal exam: Present: soft, normal bowel sounds. Absent: distended, tenderness, guarding, rebound, rigid Extremities exam: Present: normal inspection, full ROM, normal capillary refill. Absent: tenderness, pedal edema, joint swelling, calf tenderness Back exam: Present: normal inspection Neurological exam: Present: alert, oriented X3, CN II-XII intact Psychiatric exam: Present: normal affect, normal mood Skin exam: Present: warm, dry, intact, normal color. Absent: rash Course Vital Signs 03/25/18 03/25/18 03/25/18 17:57 19:00 21:01 Temperature 98.6 F 97.5 F L Pulse Rate 98 96 68 Respiratory 18 18 16 Rate Blood Pressure 137/97 156/100 170/90 O2 Sat by Pulse 98 98 98 Oximetry - Reevaluation(s) Reevaluation #1: Patient had success with treatment, patient is able to drink and swallow without difficulty Patient was evaluated by GI here in the emergency room Medical Decision Making - Medical Decision Making 57 female the ER with history of esophageal surgery coming in with esophageal foreign body, patient's esophageal foreign body resolved without difficulty. Patient can be discharged home - Radiology Data Radiology results: report reviewed (Chest x-rays negative for acute disease), image reviewed Disposition Clinical Impression: Esophageal foreign body Disposition: HOME SELF-CARE Condition: Good Instructions: Esophageal Foreign Body (ED) Is patient prescribed a controlled substance at d/c from ED?: No Referrals: Eros Carlson DO [Primary Care Provider] - 1-2 days
[2018-03-25] MEDS ORDERED: SODIUM CHLORIDE 0.9% 500 ML IV STA (19:09)
[2018-03-25] MEDS ORDERED: GLUCAGON 1 MG/ML VIAL IVP STA (19:09)
[2018-03-25] MEDS ORDERED: SODIUM CHLORIDE 0.9% 1,000 ML IV STA (19:09)
--- NOTE | 2018-03-25 19:14 | XR ---
EXAMINATION TYPE: XR chest 2V DATE OF EXAM: 03/25/2018 COMPARISON: NONE HISTORY: Pain TECHNIQUE: Frontal and lateral views of the chest are obtained. FINDINGS: Heart and mediastinum are normal. There is some linear density at the left lung base. Ther e is no heart failure. There is some blunting of left costophrenic angle. IMPRESSION: There is some pleural thickening and atelectasis at the left lung base. No heart failure .
[2018-03-25 21:02] VITALS: BP 170/90; PULSE 68; RESP 16; TEMP 97.5
== END 2018-03-25 21:02 | disposition home or self-care (01) ==
LOC: EC 17:52
DX: T18.108A Unspecified foreign body in esophagus causing other injury, initial encounter (principal); K21.9 Gastro-esophageal reflux disease without esophagitis; F32.9 Major depressive disorder, single episode, unspecified; F41.9 Anxiety disorder, unspecified; G47.419 Narcolepsy without cataplexy; F17.200 Nicotine dependence, unspecified, uncomplicated; Z85.01 Personal history of malignant neoplasm of esophagus; Z79.899 Other long term (current) drug therapy; Z88.0 Allergy status to penicillin; Z88.1 Allergy status to other antibiotic agents; Z88.8 Allergy status to other drugs, medicaments and biological substances; Z91.048 Other nonmedicinal substance allergy status; Z90.49 Acquired absence of other specified parts of digestive tract
CPT/HCPCS: 71046; 99284; 96374; 96361; J1610

== ENCOUNTER → 2018-08-16 | Outpatient (CLI) | payer OTHER ==
[2018-08-16 11:48] LABS: Blood Urea Nitrogen 18 mg/dL (7-17)
--- NOTE | 2018-08-16 13:25 | CT ---
EXAMINATION TYPE: CT ChestAbdPelvis wo/w con DATE OF EXAM: 08/16/2018 COMPARISON: 10/23/2017 HISTORY: Follow up esophageal cancer. CT DLP: 3127 mGycm CONTRAST: CT scan of the chest, abdomen and pelvis is performed with Oral Contrast and without and with IV Cont rast, patient injected with 100 mL of Isovue M300. CT Chest: LUNGS: The lungs are clear and free of infiltrate or atelectasis. No pulmonary nodule or mass is det ected. No pleural effusion or CT evidence of interstitial lung disease. Elevation left hemidiaphragm . MEDIASTINUM: There are changes of esophagectomy and gastric pull-through procedure. No evidence for r ecurrent or residual mass. Contrast is seen within the gastric pull-through component. Thoracic aorta is of normal caliber. The heart is not enlarged. No evidence for mediastinal mass or adenopathy. HILAR STRUCTURES: No evidence for mass. No hilar adenopathy is appreciated. OTHER: No significant abnormality. CONTRAST CT ABDOMEN AND PELVIS FINDINGS: LIVER/GB: No calcified gallstones. No space occupying hepatic lesion. Biliary tree is of normal ca liber. PANCREAS: No inflammation. No distinct mass. SPLEEN: No splenic enlargement. No lesion seen. ADRENALS: No nodule. No thickening. KIDNEYS/BLADDER: Focal areas of renal parenchymal loss. No hydronephrosis. No nephrolithiasis. No distinct renal mass. BOWEL: Normal appendix. Normal bowel caliber. No inflammation. GENITAL ORGANS: Hysterectomy changes. No adnexal masses seen. LYMPH NODES: No greater than 1cm abdominal or pelvic lymph nodes are appreciated. AORTA: No significant abnormality. OSSEOUS STRUCTURES: No significant abnormality is seen. OTHER: No significant additional abnormality is seen. IMPRESSION: 1. No evidence for metastatic disease. 2. Postoperative changes of gastric pull-through and esophagectomy.
== END | disposition home or self-care (01) ==
LOC: RADCTMAIN 10:46
PROVIDERS: ATTEND Radiology Radiation Oncology
DX: C15.5 Malignant neoplasm of lower third of esophagus (principal); F17.210 Nicotine dependence, cigarettes, uncomplicated; Z90.49 Acquired absence of other specified parts of digestive tract; Z98.890 Other specified postprocedural states
CPT/HCPCS: 82565; 84520; 71270; 74178; 36415; Q9967

== ENCOUNTER → 2018-10-25 | Outpatient (CLI) | payer OTHER ==
--- NOTE | 2018-10-25 16:48 | BD ---
EXAMINATION TYPE: Axial Bone Density DATE OF EXAM: 10/25/2018 COMPARISON: NONE CLINICAL HISTORY: Height: 5 FT 5 IN Weight: 176 FRAX RISK QUESTIONS: History of Fracture in Adulthood: YES Secondary Osteoporosis: Current Tobacco Use: YES RISK FACTORS HISTORY OF: Surgery to Spine/Hip(right/left)/Wrist (right/left): RT WRIST When: 1972 Active: YES Diet low in dairy products/other sources of calcium: Postmenopausal woman: PART HYST AGE 35 ONE OVARY REMOVED 2012 Poor Health: FAIR MEDICATIONS: Additional Medications: EFFEXOR,OMEPRAZOLE, BUSPAR, DIAZIDE, RITALIN, METOPROLOL Additional History: BREAST CANCER 2018 RADIATION JUST FINISHED ESOPHAGEAL CANCER 2017RADIATION AND CH EMO EXAM MEASUREMENTS: Bone mineral densitometry was performed using the Hyper Wear System. Bone mineral density as measured about the Lumbar spine is: ----- L1-L4(G/cm2): 1.265 T Score Values are as follows: ----- L2: 1.9 ----- L3: 2.0 ----- L4: 0.4 ----- L1-L4: 0.7 BASELINE Bone mineral density about the R hip (g/cm2): 0.860 Bone mineral density about the L hip (g/cm2): 0.850 T Score values are as follows: -----R Neck: -1.3 -----L Neck: -1.4 -----R Total: -1.2 -----L Total: -0.8 BASELINE IMPRESSION: Osteopenia (T Score between -2.5 and -1). There is slightly increased risk of fracture and the patient may be considered for treatment. Re-Screen 2-5 years. NOTE: T-SCORE=SD OF THE YOUNG ADULT MEAN.
== END | disposition home or self-care (01) ==
LOC: RADBDWWP 10:36
PROVIDERS: ATTEND Internal Medicine Hematology & Oncology
DX: M85.851 Other specified disorders of bone density and structure, right thigh (principal); M85.852 Other specified disorders of bone density and structure, left thigh; Z79.890 Hormone replacement therapy
CPT/HCPCS: 77080

== ENCOUNTER → 2019-02-21 | Outpatient (CLI) | payer OTHER ==
--- NOTE | 2019-02-21 15:43 | CT ---
EXAMINATION TYPE: CT ChestAbdPelvis w con DATE OF EXAM: 02/21/2019 INDICATION: Follow up for esophageal cancer. COMPARISON: 08/16/2018 CT DLP: 1696 mGycm CONTRAST: Performed with Oral Contrast and with IV Contrast, patient injected with 100ml mL of Isovue 300. TECHNIQUE: Axial images at 5 mm thick sections. Reconstructed images in the coronal plane. Delayed images through the kidneys. FINDINGS: CT CHEST: Gastric pull-through appears to be present. Portion of the thyroid visualized is normal. Mild compressive atelectasis is within the dependent portion of left lung. A posterior left lung hien ia may be present. No enlarged mediastinal or hilar adenopathy is evident. The ascending aorta diameter at the level of the main pulmonary artery is 3.7 cm. The main pulmonary artery diameter at the bifurcation is 2.[address] ABDOMEN: Liver: Mild fatty infiltration is through the liver. Spleen: Normal Pancreas: Normal Adrenal glands: The adrenal glands are normal. Gallbladder: Surgically absent Kidneys: No masses are evident. No hydronephrosis is present. No cysts are present. Delayed images were obtained through the kidneys, which remain unremarkable. Aorta: Vascular calcification is within the aorta. Inferior vena cava: Normal. CT PELVIS: Loops of bowel within the abdomen and pelvis are normal. Multiple diverticuli are within the sigm oid colon. No acute diverticulitis is evident. Appendix: Not visualized Urinary bladder: Normal. Genitourinary structures: Uterus and ovaries are not identified. Osseous structures: No suspicious lytic or sclerotic lesions. Degenerative disc changes are present L 1-2. Scoliosis is present. IMPRESSIONS: 1. No suspicious changes to suggest recurrent or metastatic esophageal cancer. 2. Diverticulosis without acute diverticulitis.
== END | disposition home or self-care (01) ==
LOC: RADCTMAIN 13:12
PROVIDERS: ATTEND Radiology Radiation Oncology
DX: K57.90 Diverticulosis of intestine, part unspecified, without perforation or abscess without bleeding (principal); K22.70 Barrett's esophagus without dysplasia; D05.12 Intraductal carcinoma in situ of left breast; C15.5 Malignant neoplasm of lower third of esophagus; F17.210 Nicotine dependence, cigarettes, uncomplicated; Z98.890 Other specified postprocedural states
CPT/HCPCS: 71260; 74177; Q9967

== ENCOUNTER 2019-04-04 16:48 | Emergency (ER) | payer OTHER ==
[2019-04-04 17:00] VITALS: TEMP 98.1
[2019-04-04] MEDS ORDERED: SODIUM CHLORIDE 0.9% 1,000 ML IV STA ×2 (17:34)
--- NOTE | 2019-04-04 17:50 | ED ---
Neuro HPI - General Chief Complaint: Neuro Symptoms/Deficit Stated Complaint: vision problem Time Seen by Provider: 04/04/19 17:30 Source: patient, RN notes reviewed, old records reviewed Mode of arrival: ambulatory Limitations: no limitations - History of Present Illness Is the patient presenting with stroke symptoms?: No -: hour(s) Initial Comments: This is a 50-year-old female the ER for evaluation no underlying medical history no high blood pressure cholesterol diabetes no history of stroke she is on psychiatric medications right peripheral vision loss just the right eye. She does have peripheral vision loss to left does have good medial vision in her left eye the right eye is loss peripheral vision. Patient denies any headaches. Maybe a little blurry vision overall. No trauma. Patient was driving over taking her some the doctors when she began to notice the symptoms just on the right side. No prior history of heart disease. Patient does not wear contacts or glasses Location: other (Right eye peripheral vision loss) History of same: No Place: home Severity: severe Improves With: none Worsens With: none On Anticoagulants: No Context: gradual onset, sudden onset Associated Symptoms: denies other symptoms - Related Data Home Medications: Home Medications Medication Instructions Recorded Confirmed busPIRone HCL 10 mg PO BID 08/03/16 04/04/19 Metoprolol Tartrate 25 mg PO BID 12/26/16 04/04/19 Omeprazole [PriLOSEC] 20 mg PO BID 06/15/17 04/04/19 Aspirin/Sod Bicarb/Citric Acid 1 tab PO Q6H PRN 03/25/18 04/04/19 [Monique-[place] Original Tab Eff] Multivitamins, Thera [Multivitamin 1 tab PO DAILY 03/25/18 04/04/19 (formulary)] Cyanocobalamin (Vitamin B-12) 5,000 mcg PO DAILY 04/04/19 04/04/19 [Vitamin B-12] Dextroamphetamine/Amphetamine 10 mg PO TID 04/04/19 04/04/19 [Adderall] Exemestane [Aromasin] 25 mg PO DAILY 04/04/19 04/04/19 Pravastatin Sodium [Pravachol] 40 mg PO HS 04/04/19 04/04/19 Triamterene-Hctz 37.5-25Mg 1 cap PO DAILY 04/04/19 04/04/19 [Dyazide 37.5-25 Capsule] Venlafaxine HCl [Effexor] 75 mg PO BID 04/04/19 04/04/19 Allergies/Adverse Reactions: Allergies Allergy/AdvReac Type Severity Reaction Status Date / Time adhesive tape Allergy REDNESS Verified 04/04/19 17:41 AND BLISTERS cefaclor Allergy Rash/Hives Verified 04/04/19 17:41 cephalexin Allergy Rash/Hives Verified 04/04/19 17:41 escitalopram Allergy Rash/Hives Verified 04/04/19 17:41 Penicillins Allergy Rash/Hives Verified 04/04/19 17:41 povidone-iodine Allergy Rash/Hives Verified 04/04/19 17:41 Review of Systems ROS Statement: Those systems with pertinent positive or pertinent negative responses have been documented in the HPI. ROS Other: All systems not noted in ROS Statement are negative. General Exam Limitations: no limitations General appearance: alert, in no apparent distress Head exam: Present: atraumatic, normocephalic, normal inspection Eye exam: Present: normal appearance, PERRL, EOMI, other (Patient has right eye peripheral vision loss to the right, left eye medial vision is spared no peripheral vision loss the left). Absent: scleral icterus, conjunctival injection, periorbital swelling ENT exam: Present: normal exam, mucous membranes moist Neck exam: Present: normal inspection. Absent: tenderness, meningismus, lymphadenopathy Respiratory exam: Present: normal lung sounds bilaterally. Absent: respiratory distress, wheezes, rales, rhonchi, stridor Cardiovascular Exam: Present: regular rate, normal rhythm, normal heart sounds. Absent: systolic murmur, diastolic murmur, rubs, gallop, clicks GI/Abdominal exam: Present: soft, normal bowel sounds. Absent: distended, tenderness, guarding, rebound, rigid Extremities exam: Present: normal inspection, full ROM, normal capillary refill. Absent: tenderness, pedal edema, joint swelling, calf tenderness Back exam: Present: normal inspection Neurological exam: Present: alert, oriented X3, CN II-XII intact Psychiatric exam: Present: normal affect, normal mood Skin exam: Present: warm, dry, intact, normal color. Absent: rash Stroke MDM - Lab Data Result diagrams: 04/04/19 17:55 04/04/19 17:55 Lab Results 04/04/19 04/04/19 04/04/19 Range/Units 17:55 17:55 17:55 WBC 6.4 (3.8-10.6) k/uL RBC 5.24 (3.80-5.40) m/uL Hgb 17.4 H (11.4-16.0) gm/dL Hct 49.8 H (34.0-46.0) % MCV 95.1 (80.0-100.0) fL MCH 33.2 (25.0-35.0) pg MCHC 34.9 (31.0-37.0) g/dL RDW 13.1 (11.5-15.5) % Plt Count 190 (150-450) k/uL Neutrophils % 64 % Lymphocytes % 24 % Monocytes % 6 % Eosinophils % 3 % Basophils % 2 % Neutrophils # 4.1 (1.3-7.7) k/uL Lymphocytes # 1.5 (1.0-4.8) k/uL Monocytes # 0.4 (0-1.0) k/uL Eosinophils # 0.2 (0-0.7) k/uL Basophils # 0.1 (0-0.2) k/uL Sodium 140 (137-145) mmol/L Potassium 3.8 (3.5-5.1) mmol/L Chloride 103 (98-107) mmol/L Carbon Dioxide 27 (22-30) mmol/L Anion Gap 10 mmol/L BUN 15 (7-17) mg/dL Creatinine 0.92 (0.52-1.04) mg/dL Est GFR (CKD-EPI)AfAm 80 (>60 ml/min/1.73 sqM) Est GFR (CKD-EPI)NonAf 69 (>60 ml/min/1.73 sqM) Glucose 109 H (74-99) mg/dL Calcium 9.8 (8.4-10.2) mg/dL Total Bilirubin 0.6 (0.2-1.3) mg/dL AST 26 (14-36) U/L ALT 15 (9-52) U/L Alkaline Phosphatase 97 (38-126) U/L Creatine Kinase 34 (30-135) U/L Troponin I <0.012 (0.000-0.034) ng/mL Total Protein 7.0 (6.3-8.2) g/dL Albumin 4.1 (3.5-5.0) g/dL - NIH Stroke Scale 1a. Level of Consciousness: (0) alert 1b. LOC Questions: (0) answers correctly 1c. LOC Commands: (0) performs tasks correctly 2. Best Gaze: (0) normal 3. Visual: (1) partial hemianopia (Right-sided peripheral vision loss) 4. Facial Palsy: (0) normal symmetrical movement 5a. Motor Arm Left: (0) no drift 5b. Motor Arm Right: (0) no drift 6a. Motor Leg Left: (0) no drift 6b. Motor Leg Right: (0) no drift 7. Limb Ataxia: (0) absent 8. Sensory: (0) normal 9. Best Language: (0) no aphasia 10. Dysarthria: (0) normal 11. Extinction/Inattention: (0) no abnormality - Radiology Data Radiology results: report reviewed (CT brain CTA had not negative for acute dis ease), image reviewed - EKG Data -: EKG Interpreted by Me (EKG shows normal sinus rhythm rate of 70, [place] 132, QRS 60, QTc 444) Past Medical History Past Medical History: Cancer, GERD/Reflux Additional Past Medical History / Comment(s): COLEMAN'S ESOPHAGUS , esophageal cancer-HAD CHEMO. SORES ON LT FOREARM-HEALED. NARCOLEPSY. CONSTANT VOMITTING. OCCASSIONAL BLE EDEMA History of Any Multi-Drug Resistant Organisms: MRSA Date of last positivie culture/infection: 12/2016 MDRO Source:: PEG TUBE SITE Past Surgical History: Section, Cholecystectomy, Hysterectomy, Orthopedic Surgery, Tubal Ligation Additional Past Surgical History / Comment(s): ,colonoscopy, oopherectomy, 2/3rds ESOPHAGECTOMY, 1/3rd GASTRECTOMY, PEG TUBE INSERTION AND REMOVAL R/T INFECTION. SCOPE LT KNEE, EGD, CYST REMOVED RT WRIST, C-SECT X 4, Past Anesthesia/Blood Transfusion Reactions: No Reported Reaction Past Psychological History: Anxiety, Depression Smoking Status: Current some day smoker Past Alcohol Use History: None Reported Past Drug Use History: None Reported - Past Family History Mother Family Medical History: Cancer Sister(s) Family Medical History: Cancer Course Vital Signs 04/04/19 16:58 Temperature 98.1 F Pulse Rate 83 Respiratory 18 Rate Blood Pressure 140/93 O2 Sat by Pulse 99 Oximetry - Reevaluation(s) Reevaluation #1: 04/04/19 19:38 Records reviewed Reevaluation #2: 04/04/19 19:38 No significant current improving or worsening of symptoms - Consultations Consultation #1: Spoke with Dr. Barnes who will see patient in discharge office tomorrow Disposition Clinical Impression: Peripheral vision loss Narrative: Right Eye peripheral vision Loss Disposition: HOME SELF-CARE Condition: Good Instructions (If sedation given, give patient instructions): Blurred Vision (ED) Is patient prescribed a controlled substance at d/c from ED?: No Referrals: Gage Barnes MD [STAFF PHYSICIAN] - 1-2 days
[2019-04-04 18:07] LABS: Basophils # (A) 0.1 k/uL (0-0.2); Basophils % (A) 2 %; Eosinophils # (A) 0.2 k/uL (0-0.7); Eosinophils % (A) 3 %; HCT 49.8 % (34.0-46.0); HGB 17.4 gm/dL (11.4-16.0); Lymphocytes # (A) 1.5 k/uL (1.0-4.8); Lymphocytes % (A) 24 %; MCH 33.2 pg (25.0-35.0); MCHC 34.9 g/dL (31.0-37.0); MCV 95.1 fL (80.0-100.0); Mean Platelet Volume 7.5; Monocytes # (A) 0.4 k/uL (0-1.0); Monocytes % (A) 6 %; Neutrophils # (A) 4.1 k/uL (1.3-7.7); Neutrophils % (A) 64 %; Platelet Count 190 k/uL (150-450); RBC 5.24 m/uL (3.80-5.40); RDW 13.1 % (11.5-15.5); WBC 6.4 k/uL (3.8-10.6)
[2019-04-04 18:16] LABS: Albumin 4.1 g/dL (3.5-5.0); Calcium 9.8 mg/dL (8.4-10.2); Potassium 3.8 mmol/L (3.5-5.1); Total Bilirubin 0.6 mg/dL (0.2-1.3)
--- NOTE | 2019-04-04 19:31 | CT ---
EXAMINATION TYPE: CT brain wo con for TPA DATE OF EXAM: 04/04/2019 COMPARISON: None HISTORY: Vision issues, blurry, no peripherial, starting today CT DLP: 1144.70 mGycm Automated exposure control for dose reduction was used. FINDINGS: Ventricles have normal size. There is no mass effect nor midline shift. There is no sign of intracran ial hemorrhage. There is no evidence of cerebral edema. Calvarium is intact. IMPRESSION: NEGATIVE HEAD CT SCAN.
--- NOTE | 2019-04-04 19:42 | CT ---
EXAMINATION TYPE: CT angio head neck DATE OF EXAM: 04/04/2019 HISTORY: Vision issues, blurry, no peripherial, starting today. COMPARISON: None CT DLP: 345.40 mGycm. Automated Exposure Control for Dose Reduction was Utilized. TECHNIQUE: CTA scan of the neck is performed with IV Contrast, patient injected with 65 mL of Isovue 370, axial images are obtained, coronal and sagittal reformatted images are reviewed. Three-D recons tructed images are created on an independent workstation and reviewed. FINDINGS: There is normal branching pattern of the great vessels on the aortic arch. There is bilateral arteria l flow in the subclavian arteries. There is arterial flow in the common internal and external carotid arteries bilaterally. There is wide patency of the carotid artery bifurcations. There is arterial fl ow in the vertebral arteries bilaterally. Left vertebral artery is larger than the right. There is no evidence of carotid or vertebral artery aneurysm or dissection. The basilar artery fills mainly from the left side. There is arterial flow in the anterior middle and posterior cerebral arteries. I see no evidence of h emodynamic stenosis. There is no evidence of aneurysm or neovascularity. There is no mass effect. The re is normal contrast opacification of the venous sinuses. IMPRESSION: Negative CT angiogram of the neck. Negative CT angiogram of the brain.
[2019-04-04 20:31] VITALS: BP 136/86; PULSE 73; RESP 20
== END 2019-04-04 20:32 | disposition home or self-care (01) ==
LOC: EC 16:48
DX: H54.61 Unqualified visual loss, right eye, normal vision left eye (principal); K21.9 Gastro-esophageal reflux disease without esophagitis; F41.9 Anxiety disorder, unspecified; F32.9 Major depressive disorder, single episode, unspecified; K22.70 Barrett's esophagus without dysplasia; F17.200 Nicotine dependence, unspecified, uncomplicated; Z79.899 Other long term (current) drug therapy; Z88.0 Allergy status to penicillin; Z88.1 Allergy status to other antibiotic agents; Z91.048 Other nonmedicinal substance allergy status; Z88.8 Allergy status to other drugs, medicaments and biological substances; Z85.01 Personal history of malignant neoplasm of esophagus
CPT/HCPCS: 36415; 93005; 80053; 82550; 84484; 85025; 70496; 70450; 70498; 99285; 96360; Q9967

== ENCOUNTER → 2019-04-07 | Outpatient (CLI) | payer OTHER ==
--- NOTE | 2019-04-07 15:44 | XR ---
EXAMINATION TYPE: XR wrist limited RT DATE OF EXAM: 04/07/2019 COMPARISON: NONE HISTORY: 58-year-old female fibromyalgia TECHNIQUE: 2 views FINDINGS: Some cystic change within the lunate may reflect intraosseous ganglion. Some articular surface irregu larity at the scaphoid trapezial joint. Additional moderate degenerative joint space narrowing at the first CMC joint. No acute fracture or dislocation seen. IMPRESSION: 1. [id number] first CMC and triscaphe joint OA. 2. Incidental: Suggestion of intraosseous lipoma versus intraosseous ganglion within the lunate bone.
== END | disposition home or self-care (01) ==
LOC: RADXRMAIN 11:36
PROVIDERS: ATTEND Internal Medicine Hematology & Oncology
DX: M19.031 Primary osteoarthritis, right wrist (principal); C15.5 Malignant neoplasm of lower third of esophagus; D05.12 Intraductal carcinoma in situ of left breast; E78.5 Hyperlipidemia, unspecified; M79.7 Fibromyalgia

== ENCOUNTER → 2019-08-09 | Outpatient (CLI) | payer OTHER ==
--- NOTE | 2019-08-09 13:37 | CT ---
EXAMINATION TYPE: CT ChestAbdPelvis wo/w con DATE OF EXAM: 08/09/2019 COMPARISON: CT February 21, [address] September 13, 2016 HISTORY: Malignant neoplasm of esophagus and Left breast CT DLP: 1470.90 mGycm. Automated Exposure Control for Dose Reduction was Utilized. CONTRAST: CT scan of the thorax, abdomen and pelvis is performed with oral and without and with IV Contrast, pa tient injected with 100 ml mL of Isovue 300. FINDINGS: LUNGS: Persistent filling left lung base from hiatal hernia. Background Mild underlying emphysematou s change. No new suspicious nodules or masses. No pleural effusion or pneumothorax seen bilaterally. MEDIASTINUM: There are no greater than 1 cm hilar or mediastinal lymph nodes. No cardiomegaly or p ericardial effusion is seen. Surgical changes from esophagectomy and gastric pull-up procedure are r edemonstrated. OTHER: Persistent asymmetric mild diffuse skin thickening left breast redemonstrated slightly less pr ominent from most recent CT, suspect post treatment change. Correlate clinically. Resolving fluid col lection left breast near scar axial image 22. LIVER/GB: Cholecystectomy clips are seen. PANCREAS: No significant abnormality is seen. SPLEEN: No significant abnormality is seen. ADRENALS: No significant abnormality is seen. KIDNEYS: No significant abnormality is seen. BOWEL: Oral contrast does not reach colonic level. No suspicious small or large bowel dilatation. Div erticula in the left and sigmoid colon. Hiatal hernia contains portions of colon along with some mese nteric vessels. No significant change from prior. GENITAL ORGANS: Uterus is surgically absent or markedly atrophic. LYMPH NODES: No greater than 1cm abdominal or pelvic lymph nodes are appreciated. OSSEOUS STRUCTURES: Slight S-shaped scoliotic curvature with multilevel spurring. Moderate asymmetric right-sided narrowing and sclerosis L2-L3. OTHER: No significant additional abnormality is seen. IMPRESSION: No suspicious new mass or adenopathy to suggest neoplastic recurrence. No suspicious new finding from most recent CT.
== END | disposition home or self-care (01) ==
LOC: RADCTMAIN 10:45
PROVIDERS: ATTEND Radiology Radiation Oncology
DX: C15.5 Malignant neoplasm of lower third of esophagus (principal); D05.12 Intraductal carcinoma in situ of left breast; F17.210 Nicotine dependence, cigarettes, uncomplicated; Z98.890 Other specified postprocedural states
CPT/HCPCS: 82565; 84520; 71270; 74178; 36415; Q9967

== ENCOUNTER 2021-11-14 22:22 | Emergency (ER) | payer MEDICARE, OTHER ==
[2021-11-14 22:33] VITALS: BP 109/76; PULSE 101; RESP 18; TEMP 98.2
[2021-11-15 06:58] LABS: Basophils % (A) 1 %; Eosinophils % (A) 1 %; HCT 50.8 % (34.0-46.0); HGB 17.4 gm/dL (11.4-16.0); Lymphocytes # (A) 1.8 k/uL (1.0-4.8); Lymphocytes % (A) 36 %; MCH 32.9 pg (25.0-35.0); MCHC 34.3 g/dL (31.0-37.0); MCV 96.1 fL (80.0-100.0); Mean Platelet Volume 9.1; Monocytes # (A) 0.4 k/uL (0-1.0); Monocytes % (A) 9 %; Neutrophils # (A) 2.4 k/uL (1.3-7.7); Neutrophils % (A) 49 %; Platelet Count 151 k/uL (150-450); RBC 5.28 m/uL (3.80-5.40); WBC 4.9 k/uL (3.8-10.6)
[2021-11-15 07:03] LABS: Albumin 4.1 g/dL (3.5-5.0); Calcium 9.6 mg/dL (8.4-10.2); Phosphorus 3.2 mg/dL (2.5-4.5); Potassium 3.3 mmol/L (3.5-5.1); T4, Free (Free Thyroxine) 1.46 ng/dL (0.78-2.19); Total Bilirubin 0.5 mg/dL (0.2-1.3)
[2021-11-15 07:06] LABS: Creatine Kinase MB 0.7 ng/mL (0.0-2.4)
[2021-11-15 07:07] LABS: Troponin I 0.054 ng/mL (0.000-0.034)
== END 2021-11-15 02:35 | disposition home or self-care (01) ==
LOC: EC 22:22
DX: E87.5 Hyperkalemia (principal); I10 Essential (primary) hypertension; E11.9 Type 2 diabetes mellitus without complications; I25.2 Old myocardial infarction
CPT/HCPCS: 36415; 80053; 82550; 82553; 83735; 84100; 84439; 84443; 84484; 85025

== ENCOUNTER → 2022-02-21 | Outpatient (CLI) | payer MEDICARE ==
--- NOTE | 2022-02-21 14:47 | BD ---
EXAMINATION TYPE: Axial Bone Density DATE OF EXAM: 02/21/2022 COMPARISON: 10.25.2018....SCAN UNAVAILABLE, CLINICAL HISTORY: 61 years year old Female. 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 Menopause before 45: YES,35 4. Malnutrition: ESOPHAGEAL CA Current Tobacco Use: YES RISK FACTORS HISTORY OF: HX OF RT WRIST SURG, 1972 Diet low in dairy products/other sources of calcium: YES Postmenopausal woman: YES, AT AGE 35 YRS OLD Lost more than 2 inches in height since high school: YES Hyperparathyroidism: NO Adrenal Insufficiency: NO MEDICATIONS: Prednisone or other steroids: YES, ALBUTEROL, AND INHALERS ASTHMA OR COPD Osteoporosis Medications: PROLIA, 3 YRS Additional Medications: HX OF RADIATION, HX OF CHEMO, BP MEDS, EFFEXOR, BUSPAR, REFLUX MEDS, STATI N FOR CHOLESTEROL, VIT D, ADDERAL Additional History: ESOPHAGEAL CANCER, LT BREAST CANCER, LUMPECTOMY, ANXIETY, REFLUX, CHOLESTEROL, RA DIATION, CHEMO, OSTEOPOROSIS MEDS, NARCOLEPSY, EXAM MEASUREMENTS: Bone mineral densitometry was performed using the [employer] System. Bone mineral density as measured about the Lumbar spine is: ----- L1-L4(G/cm2): 1.157 T Score Values are as follows: ----- L1: -1.0 ----- L2: 0.9 ----- L3: -0.7 ----- L4: 0.0 ----- L1-L4: -0.2 Bone mineral density NEW BSLNE Bone mineral density about the R hip (g/cm2): 0.793 Bone mineral density about the L hip (g/cm2): 0.857 T Score values are as follows: -----R Neck: -1.6 -----L Neck: -1.5 -----R Total: -1.7 -----L Total: -1.2 Bone mineral density NEW BSLNE FRAX%s: The graph provided illustrates a 14.0% chance for a major osteoporotic fx and a 2.7% chance f or the hips probability for fx in 10 years time. IMPRESSION: Osteopenia (T Score between -2.5 and -1) remains present. There remains slightly increased risk of fracture and the patient may be considered for treatment. Re-Screen 2-5 years. NOTE: T-SCORE=SD OF THE YOUNG ADULT MEAN.
== END | disposition home or self-care (01) ==
LOC: RADMAMWWP 11:04
PROVIDERS: ATTEND Internal Medicine Hematology & Oncology
DX: Z12.31 Encounter for screening mammogram for malignant neoplasm of breast (principal); D05.12 Intraductal carcinoma in situ of left breast; N95.1 Menopausal and female climacteric states; M85.80 Other specified disorders of bone density and structure, unspecified site
CPT/HCPCS: 77063; 77067; 77080

== ENCOUNTER → 2022-06-06 | Outpatient (CLI) | payer MEDICARE, OTHER ==
--- NOTE | 2022-06-08 13:40 | PE ---
EXAMINATION TYPE: PET CT fusion skull to thigh DATE OF EXAM: 06/06/2022 CLINICAL INDICATION:Female, 61 years old with history of C15.5 Esophageal Cancer; TECHNIQUE: Following the intravenous administration of 11.7 cm mCi of F-18 FDG, whole body images a re performed from the skull base to the midthigh. Images are reviewed on the computer in the coronal , axial, and sagittal planes. Reconstructed rotating images are created on independent workstation a nd reviewed on the computer. A non-contrast CT is performed in conjunction with the PET scan. Gluco se level 112 mg/dL COMPARISON: CT 02/27/2022, PET/CT 09/13/2016, FINDINGS: Mediastinal SUV mean is 1.8. Hepatic parenchyma SUV mean is 2.5. SKULL BASE AND NECK: * Intense FDG uptake seen within the patient's tongue max SUV 11.2 CHEST, MEDIASTINUM, AND HILAR REGION: No suspicious radiotracer activity. ABDOMEN AND PELVIS * Enlarged lymph node with abnormal just under the diaphragm near the gastroesophageal junction. FDG activity SUV 8.2 measuring 13 mm in short axis. (Series 3 image 132) OSSEOUS STRUCTURES: No suspicious radiotracer activity. OTHER CT: Postsurgical changes to the esophagus and stomach. Right nonobstructing renal calculi. The gallbladder is surgically absent. Additional atherosclerosis of the arterial vasculature. Colonic div erticulosis. Mild paraseptal emphysema changes are present. IMPRESSION: * Suspicious FDG activity within a lymph node under the diaphragm near the gastroesophageal junction concerning for residual disease. * Intense radiotracer uptake within the tongue correlate with patient movement prior to exam and dir ect visualization.
== END | disposition home or self-care (01) ==
LOC: RADPETMAIN 15:38
PROVIDERS: ATTEND Internal Medicine Hematology & Oncology
DX: C15.5 Malignant neoplasm of lower third of esophagus (principal); Z92.21 Personal history of antineoplastic chemotherapy; Z92.3 Personal history of irradiation
CPT/HCPCS: 78815; A9552

== ENCOUNTER → 2022-10-03 | Outpatient (CLI) | payer MEDICARE, OTHER ==
--- NOTE | 2022-10-03 11:12 | PE ---
EXAMINATION TYPE: PET CT fusion skull to thigh DATE OF EXAM: 10/03/2022 COMPARISON: Prior PET/CT June 06, 2022 and older studies. HISTORY: Esophageal cancer progress study. Originally diagnosed 2015. Left-sided breast cancer diagno sed 2018. No current treatment. TECHNIQUE: Following the intravenous administration of 10.39 mCi of F-18 FDG, whole body images are performed from the skull base to the midthigh. Images are reviewed on the computer in the coronal, a xial, and sagittal planes. Reconstructed rotating images are created on independent workstation and reviewed on the computer. A localization and attenuation correction CT is performed in conjunction with the PET scan. Blood glucose level equals 93. SCAN: Subsequent Scan FINDINGS: SKULL BASE AND NECK: No new areas of abnormal hypermetabolic uptake. CHEST, MEDIASTINUM, AND HILAR REGION: No new areas of abnormal hypermetabolic uptake. ABDOMEN AND PELVIS: Enlarging hypermetabolic lymph node just below the diaphragm measures 3.7 x 1.9 c m current study versus 2.5 x 1.3 cm prior study. Max SUV is 7.21 on current study axial image 126 guero yosef 8.2 on prior. No new areas of abnormal hypermetabolic uptake. OSSEOUS STRUCTURES: No new areas of abnormal hypermetabolic uptake. OTHER CT: Postsurgical changes from total esophagectomy and gastric pull-up procedure are redemonstra dima. Persistent left-sided diaphragmatic hernia. Cholecystectomy clips redemonstrated. Sigmoid coloni c diverticula are redemonstrated. Posttreatment changes left breast axial image 84 is again seen. No new hypermetabolic uptake at this level identified. Scoliotic curvature with spurring in the thoracol umbar spine is redemonstrated. IMPRESSION: Overall stable findings on PET. Max SUV is essentially stable in the suspicious lymph nod e just below the diaphragm. Enlarging size is present. No new areas of suspicious hypermetabolic upta ke to suggest new metastatic malignancy or adenopathy.
== END | disposition home or self-care (01) ==
LOC: RADPETMAIN 08:53
PROVIDERS: ATTEND Internal Medicine Hematology & Oncology
DX: C15.5 Malignant neoplasm of lower third of esophagus (principal); R59.0 Localized enlarged lymph nodes
CPT/HCPCS: 78815; A9552

== ENCOUNTER 2023-04-29 17:11 | Emergency (ER) | payer MEDICARE, OTHER ==
--- NOTE | 2023-04-29 18:53 | XR ---
EXAMINATION TYPE: XR chest 2V DATE OF EXAM: 04/29/2023 COMPARISON: Body CT February 27, 2022 HISTORY: History of esophageal and breast cancer presents with difficulty breathing TECHNIQUE: Frontal and lateral views of the chest are obtained. FINDINGS: Elevated left hemidiaphragm redemonstrated. Small to tiny bilateral pleural effusions and associated left basilar opacity favoring atelectasis. The cardiac silhouette size is stable and within normal limits. Slight scoliotic curvature is redemon strated. IMPRESSION: New small to tiny bilateral pleural effusions. Correlate for fluid overload state. Assoc iated left basilar opacity favors atelectasis.
[2023-04-29 20:05] LABS: ALT 18 U/L (4-34); AST 45 U/L (14-36); African American GFR (CKD) >90 (>60 ml/min/1.73 sqM); Albumin 3.4 g/dL (3.5-5.0); Alkaline Phosphatase 198 U/L (38-126); Anion Gap 10 mmol/L; Blood Urea Nitrogen 12 mg/dL (7-17); Carbon Dioxide 24 mmol/L (22-30); Chloride 106 mmol/L (98-107); Glucose 105 mg/dL (74-99); Non-African American GFR(CKD) 89 (>60 ml/min/1.73 sqM); Potassium 4.5 mmol/L (3.5-5.1); Sodium 140 mmol/L (137-145); Total Bilirubin 0.3 mg/dL (0.2-1.3); Total Protein 6.6 g/dL (6.3-8.2)
[2023-04-29] MEDS ORDERED: SODIUM CHLORIDE 0.9% 500 ML 500 ML IV STA (20:17)
[2023-04-29 20:32] LABS: Partial Thromboplastin Time 24.7 sec (22.0-30.0); Prothrombin Time 11.3 sec (10.0-12.5)
[2023-04-29] MEDS ORDERED: FLUTICASONE 50MCG/SPRAY NASAL 16GM EA NOSTRIL STA (20:36)
--- NOTE | 2023-04-29 21:16 | ED ---
General Adult HPI - General Chief complaint: Shortness of Breath Stated complaint: SOB Time Seen by Provider: 04/29/23 19:16 Source: patient Mode of arrival: ambulatory - History of Present Illness Initial comments: Patient is a 62-year-old female who presents to the emergency department for shortness of breath. Patient has felt short of breath for the past 3 weeks mostly with activity. She has had some pressure in her chest. States symptoms go away when she squeezes her sides or sits forward. She denies sweating, nausea, vomiting. Numbness and tingling. Denies leg pain and swelling. Denies history of DVT and PE. Patient has had a cough with green sputum. States she went to urgent care on Thursday and was given Cefdinir for sinus infection. Patient has history of breast cancer in 2017 and esophageal cancer in 2018 status post chemotherapy, partial gastrectomy, partial esophagectomy. She follows with Dr. Reddy. States she has been in remission for a few years. Patient has had some weight loss since November she has lost 43 pounds. She denies fevers, night sweats. States she has early satiety. She did have a PET scan in March which she states was relatively normal. Patient went to her primary care provider's office today who told her to come in for emergency evaluation. - Related Data Home Medications Medication Instructions Recorded Confirmed busPIRone HCL 10 mg PO BID 08/03/16 04/29/23 Metoprolol Tartrate 25 mg PO BID 12/26/16 04/29/23 Omeprazole [PriLOSEC] 20 mg PO BID 06/15/17 04/29/23 Dextroamphetamine/Amphetamine 10 mg PO DAILY@1600 04/04/19 04/29/23 [Adderall] Venlafaxine HCl [Effexor] 75 mg PO BID 04/04/19 04/29/23 Cholecalciferol (Vitamin D3) 125 mcg PO DAILY 11/15/21 04/29/23 [Vitamin D3 (125 MCG = 5,000 IU)] Cyanocobalamin (Vitamin B-12) 1,000 mcg PO DAILY 11/15/21 04/29/23 [Vitamin B-12] Dextroamphetamine/Amphetamine 30 mg PO BID@0700,1200 11/15/21 04/29/23 [Adderall] Losartan [Cozaar] 50 mg PO DAILY 11/15/21 04/29/23 Albuterol Nebulized [Ventolin 2.5 mg INHALATION RT-QID 04/29/23 04/29/23 Nebulized] Cefdinir [Omnicef] 300 mg PO Q12H 04/29/23 04/29/23 Previous Rx's Medication Instructions Recorded Azithromycin [Zithromax] 500 mg PO DAILY #7 tab 04/29/23 Allergies Allergy/AdvReac Type Severity Reaction Status Date / Time adhesive tape Allergy REDNESS Verified 04/29/23 20:47 AND BLISTERS cefaclor Allergy Rash/Hives Verified 04/29/23 20:47 cephalexin Allergy Rash/Hives Verified 04/29/23 20:47 escitalopram Allergy Rash/Hives Verified 04/29/23 20:47 Penicillins Allergy Rash/Hives/Swelling Verified 04/29/23 20:47 all over povidone-iodine Allergy Rash/Hives Verified 04/29/23 20:47 Review of Systems ROS Statement: Those systems with pertinent positive or pertinent negative responses have been documented in the HPI. ROS Other: All systems not noted in ROS Statement are negative. Past Medical History Past Medical History: Cancer, GERD/Reflux Additional Past Medical History / Comment(s): COLEMAN'S ESOPHAGUS , esophageal cancer-HAD CHEMO. SORES ON LT FOREARM-HEALED. NARCOLEPSY. CONSTANT VOMITTING. OCCASSIONAL BLE EDEMA History of Any Multi-Drug Resistant Organisms: MRSA Date of last positivie culture/infection: 12/2016 MDRO Source:: PEG TUBE SITE Past Surgical History: Section, Cholecystectomy, Hysterectomy, Orthopedic Surgery, Tubal Ligation Additional Past Surgical History / Comment(s): ,colonoscopy, oopherectomy, 2/3rds ESOPHAGECTOMY, 1/3rd GASTRECTOMY, PEG TUBE INSERTION AND REMOVAL R/T INFECTION. SCOPE LT KNEE, EGD, CYST REMOVED RT WRIST, C-SECT X 4, Past Anesthesia/Blood Transfusion Reactions: No Reported Reaction Past Psychological History: Anxiety, Depression Smoking Status: Current every day smoker Past Alcohol Use History: None Reported Past Drug Use History: None Reported - Past Family History Mother Family Medical History: Cancer Sister(s) Family Medical History: Cancer General Exam Limitations: no limitations General appearance: alert Eye exam: Present: normal appearance, PERRL, EOMI. Absent: scleral icterus, conjunctival injection, periorbital swelling ENT exam: Present: TM's normal bilaterally Neck exam: Present: normal inspection, full ROM. Absent: tenderness, meningi smus, lymphadenopathy Respiratory exam: Present: normal lung sounds bilaterally. Absent: respiratory distress, wheezes, rales, rhonchi, stridor Cardiovascular Exam: Present: regular rate, normal rhythm, normal heart sounds. Absent: systolic murmur, diastolic murmur, rubs, gallop, clicks GI/Abdominal exam: Present: soft, normal bowel sounds. Absent: distended, tenderness, guarding, rebound, rigid Extremities exam: Present: normal inspection, full ROM, normal capillary refill. Absent: tenderness, pedal edema, calf tenderness Neurological exam: Present: alert Psychiatric exam: Present: normal affect, normal mood Skin exam: Present: warm, dry, intact, normal color. Absent: rash Course Vital Signs 04/29/23 04/29/23 17:25 20:00 Temperature 97.9 F Pulse Rate 81 Respiratory 16 20 Rate Blood Pressure 118/77 O2 Sat by Pulse 95 Oximetry Medical Decision Making - Medical Decision Making EKG taken at 18:43, interpreted by myself Sinus rhythm, no ST elevation Ventricular rate 78, ND interval 132, QRS duration 85, QTc 413 Was pt. sent in by a medical professional or institution (Dr. PA, [facility] [employer], urgent care, hospital, or penitentiary...) When possible be specific @ -primary care provider today Did you speak to anyone other than the patient for history (EMS, parent, family, police, friend...)? What history was obtained from this source @ -No Did you review nursing and triage notes (agree or disagree)? Why? @ -I reviewed and agree with nursing and triage notes Were old charts reviewed (outside hosp., previous admission, EMS record, old EKG, old radiological studies, urgent care reports/EKG's, penitentiary records)? Report findings @ -Reviewed previous PET scan which showed no new metastatic malignancy Differential Diagnosis (chest pain, altered mental status, abdominal pain women, abdominal pain men, vaginal bleeding, weakness, fever, dyspnea, syncope, headache, dizziness, GI bleed, back pain, seizure, CVA, palpatations, mental health)? @ -not applicable EKG interpreted by me (3pts min.). @ -As above X-rays interpreted by me (1pt min.). @ New small tiny bilateral pleural effusions. Associated left basilar opacity which favors atelectasis CT interpreted by me (1pt min.). @ -No pulmonary embolism, new medial right lung consolidation/atelectasis, posterior left consolidation/atelectasis redemonstrated U/S interpreted by me (1pt. min.). @ -None done What testing was considered but not performed or refused? (CT, X-rays, U/S, labs)? Why? @ -None What meds were considered but not given or refused? Why? @ -None Did you discuss the management of the patient with other professionals (professionals i.e. DrAntoni, PA, [facility] [employer], lab, RT, psych nurse, health care social worker, motorcycle subassembler, teacher, air intelligence officer, supervisor case loading)? Give summary @ -No Was smoking cessation discussed for >3mins.? @ -No Was critical care preformed (if so, how long)? @ -No Were there social determinants of health that impacted care today? How? (Homelessness, low income, unemployed, alcoholism, drug addiction, transportation, low edu. Level, literacy, decrease access to med. care, halfway, rehab)? @ -No Was there de-escalation of care discussed even if they declined (Discuss DNR or withdrawal of care, Hospice)? DNR status @ -No What co-morbidities impacted this encounter? (DM, HTN, Smoking, COPD, CAD, Cancer, CVA, ARF, Chemo, Hep., AIDS, mental health diagnosis, sleep apnea, morbid obesity)? @ -None Was patient admitted / discharged? Hospital course, mention meds given and route, prescriptions, significant lab abnormalities, going to OR and other pertinent info. @ -62-year-old presenting for shortness of breath. Patient well-appearing and in no apparent distress. Hemodynamically stable. No hypoxia or fever. EKG shows sinus rhythm no ST changes. Troponin within normal limits.D-dimer is elevated at 0.88. CT of the chest was obtained and interpreted by myself showing no evidence of pulmonary embolism. There is consolidation versus atelectasis in the medial right lung and posterior left lung. There is mild leukocytosis at 12.2. Given history of productive cough I will treat patient for pneumonia. Patient requesting discharge. Patient has stable vital signs no evidence of respiratory distress she is in staboe condition. She already on cefdinir which she is encouraged to continue taking and she is prescribed azithromycin today. She will follow up with her primary care provider. Discussed return parameters Undiagnosed new problem with uncertain prognosis? @ -No Drug Therapy requiring intensive monitoring for toxicity (Heparin, Nitro, Insulin, Cardizem)? @ -No Were any procedures done? @ -No Diagnosis/symptom? @ -SOB, pneumonia Acute, or Chronic, or Acute on Chronic? @ -acute Uncomplicated (without systemic symptoms) or Complicated (systemic symptoms)? @ uncomplicated Side effects of treatment? @ -No Exacerbation, Progression, or Severe Exacerbation? @ -No Poses a threat to life or bodily function? How? (Chest pain, USA, GA, pneumonia, PE, COPD, DKA, ARF, appy, cholecystitis, CVA, Diverticulitis, Homicidal, Suicidal, threat to staff... and all critical care pts) @ -Not currently Dr. Doran is my attending - Lab Data Result diagrams: 04/29/23 18:51 04/29/23 18:51 Lab Results 04/29/23 04/29/23 04/29/23 Range/Units 18:51 18:51 18:51 WBC 12.2 H (3.8-10.6) k/uL RBC 4.45 (3.80-5.40) m/uL Hgb 14.2 (11.4-16.0) gm/dL Hct 44.0 (34.0-46.0) % MCV 99.0 (80.0-100.0) fL MCH 31.9 (25.0-35.0) pg MCHC 32.2 (31.0-37.0) g/dL RDW 12.8 (11.5-15.5) % Plt Count 357 (150-450) k/uL MPV 9.4 Neutrophils % 78 % Lymphocytes % 15 % Monocytes % 4 % Eosinophils % 1 % Basophils % 0 % Neutrophils # 9.5 H (1.3-7.7) k/uL Lymphocytes # 1.9 (1.0-4.8) k/uL Monocytes # 0.5 (0-1.0) k/uL Eosinophils # 0.2 (0-0.7) k/uL Basophils # 0.0 (0-0.2) k/uL PT 11.3 (10.0-12.5) sec INR 1.0 (<1.2) APTT 24.7 (22.0-30.0) sec D-Dimer (<0.60) mg/L FEU Sodium 140 (137-145) mmol/L Potassium 4.5 (3.5-5.1) mmol/L Chloride 106 (98-107) mmol/L Carbon Dioxide 24 (22-30) mmol/L Anion Gap 10 mmol/L BUN 12 (7-17) mg/dL Creatinine 0.73 (0.52-1.04) mg/dL Est GFR (CKD-EPI)AfAm >90 (>60 ml/min/1.73 sqM) Est GFR (CKD-EPI)NonAf 89 (>60 ml/min/1.73 sqM) Glucose 105 H (74-99) mg/dL Calcium 10.0 (8.4-10.2) mg/dL Total Bilirubin 0.3 (0.2-1.3) mg/dL AST 45 H (14-36) U/L ALT 18 (4-34) U/L Alkaline Phosphatase 198 H (38-126) U/L Troponin I (0.000-0.034) ng/mL NT-Pro-B Natriuret Pep pg/mL Total Protein 6.6 (6.3-8.2) g/dL Albumin 3.4 L (3.5-5.0) g/dL Influenza Type A (PCR) (Not Detectd) Influenza Type B (PCR) (Not Detectd) RSV (PCR) (Not Detectd) SARS-CoV-2 (PCR) (Not Detectd) 04/29/23 04/29/23 04/29/23 Range/Units 18:51 18:51 19:00 WBC (3.8-10.6) k/uL RBC (3.80-5.40) m/uL Hgb (11.4-16.0) gm/dL Hct (34.0-46.0) % MCV (80.0-100.0) fL MCH (25.0-35.0) pg MCHC (31.0-37.0) g/dL RDW (11.5-15.5) % Plt Count (150-450) k/uL MPV Neutrophils % % Lymphocytes % % Monocytes % % Eosinophils % % Basophils % % Neutrophils # (1.3-7.7) k/uL Lymphocytes # (1.0-4.8) k/uL Monocytes # (0-1.0) k/uL Eosinophils # (0-0.7) k/uL Basophils # (0-0.2) k/uL PT (10.0-12.5) sec INR (<1.2) APTT (22.0-30.0) sec D-Dimer 0.88 H (<0.60) mg/L FEU Sodium (137-145) mmol/L Potassium (3.5-5.1) mmol/L Chloride (98-107) mmol/L Carbon Dioxide (22-30) mmol/L Anion Gap mmol/L BUN (7-17) mg/dL Creatinine (0.52-1.04) mg/dL Est GFR (CKD-EPI)AfAm (>60 ml/min/1.73 sqM) Est GFR (CKD-EPI)NonAf (>60 ml/min/1.73 sqM) Glucose (74-99) mg/dL Calcium (8.4-10.2) mg/dL Total Bilirubin (0.2-1.3) mg/dL AST (14-36) U/L ALT (4-34) U/L Alkaline Phosphatase (38-126) U/L Troponin I <0.012 (0.000-0.034) ng/mL NT-Pro-B Natriuret Pep pg/mL Total Protein (6.3-8.2) g/dL Albumin (3.5-5.0) g/dL Influenza Type A (PCR) Not Detected (Not Detectd) Influenza Type B (PCR) Not Detected (Not Detectd) RSV (PCR) Not Detected (Not Detectd) SARS-CoV-2 (PCR) Not Detected (Not Detectd) 04/29/23 Range/Units 19:22 WBC (3.8-10.6) k/uL RBC (3.80-5.40) m/uL Hgb (11.4-16.0) gm/dL Hct (34.0-46.0) % MCV (80.0-100.0) fL MCH (25.0-35.0) pg MCHC (31.0-37.0) g/dL RDW (11.5-15.5) % Plt Count (150-450) k/uL MPV Neutrophils % % Lymphocytes % % Monocytes % % Eosinophils % % Basophils % % Neutrophils # (1.3-7.7) k/uL Lymphocytes # (1.0-4.8) k/uL Monocytes # (0-1.0) k/uL Eosinophils # (0-0.7) k/uL Basophils # (0-0.2) k/uL PT (10.0-12.5) sec INR (<1.2) APTT (22.0-30.0) sec D-Dimer (<0.60) mg/L FEU Sodium (137-145) mmol/L Potassium (3.5-5.1) mmol/L Chloride (98-107) mmol/L Carbon Dioxide (22-30) mmol/L Anion Gap mmol/L BUN (7-17) mg/dL Creatinine (0.52-1.04) mg/dL Est GFR (CKD-EPI)AfAm (>60 ml/min/1.73 sqM) Est GFR (CKD-EPI)NonAf (>60 ml/min/1.73 sqM) Glucose (74-99) mg/dL Calcium (8.4-10.2) mg/dL Total Bilirubin (0.2-1.3) mg/dL AST (14-36) U/L ALT (4-34) U/L Alkaline Phosphatase (38-126) U/L Troponin I (0.000-0.034) ng/mL NT-Pro-B Natriuret Pep 565 pg/mL Total Protein (6.3-8.2) g/dL Albumin (3.5-5.0) g/dL Influenza Type A (PCR) (Not Detectd) Influenza Type B (PCR) (Not Detectd) RSV (PCR) (Not Detectd) SARS-CoV-2 (PCR) (Not Detectd) Disposition Clinical Impression: Pneumonia, Shortness of breath Disposition: HOME SELF-CARE Condition: Good Instructions (If sedation given, give patient instructions): Bacterial Pneumonia (ED) Additional Instructions: Continue Cefdinir. Take additional Azithromycin as directed. Follow-up with primary care provider in one to 2 days. Return to the emergency department if you experience new, concerning, or worsening symptoms Prescriptions: Azithromycin [Zithromax] 500 mg PO DAILY #7 tab Is patient prescribed a controlled substance at d/c from ED?: No Referrals: Eros aCrlson DO [Primary Care Provider] - 1-2 days
[2023-04-29 21:17] VITALS: RESP 20
[2023-04-29 21:22] LABS: Basophils % (A) 0 %; Eosinophils # (A) 0.2 k/uL (0-0.7); Eosinophils % (A) 1 %; HGB 14.2 gm/dL (11.4-16.0); Lymphocytes # (A) 1.9 k/uL (1.0-4.8); Lymphocytes % (A) 15 %; MCH 31.9 pg (25.0-35.0); MCHC 32.2 g/dL (31.0-37.0); Mean Platelet Volume 9.4; Monocytes # (A) 0.5 k/uL (0-1.0); Monocytes % (A) 4 %; Neutrophils # (A) 9.5 k/uL (1.3-7.7); Neutrophils % (A) 78 %; Platelet Count 357 k/uL (150-450); RBC 4.45 m/uL (3.80-5.40); RDW 12.8 % (11.5-15.5); WBC 12.2 k/uL (3.8-10.6)
--- NOTE | 2023-04-29 21:54 | CT ---
EXAMINATION TYPE: CT chest angio for PE DATE OF EXAM: 04/29/2023 COMPARISON: Prior PET/CT April 03, 2023 HISTORY: High d- dimer, SOB, history of esophageal cancer. CT DLP: 239.9 mGycm. Automated Exposure Control for Dose Reduction was Utilized. CONTRAST: CTA scan of the thorax is performed with IV Contrast, patient injected with 100 cc mL of Isovue 370, pulmonary embolism protocol. MIP Images are created on CT scanner and reviewed. FINDINGS: LUNGS: New focal consolidation/atelectasis in the medial right lower lung abutting the gastric pull-u p. Left-sided diaphragmatic hernia redemonstrated. There is posterior left lung consolidation/atelect asis redemonstrated. No pneumothorax seen bilaterally. MEDIASTINUM: There is satisfactory enhancement of the pulmonary artery and its branches, there is no CT evidence for pulmonary embolism. There are no greater than 1 cm hilar or mediastinal lymph nodes. No cardiomegaly or pericardial effusion is seen. Surgical changes from distal esophagectomy and ga stric pull-up procedure are redemonstrated. OTHER: Cholecystectomy clips are redemonstrated. Edematous Skin thickening in the left breast is rede monstrated. IMPRESSION: 1. No CT evidence for acute pulmonary embolism. 2. Postsurgical and treatment changes redemonstrated. There is a new medial right lung consolidation and/or atelectasis.
[2023-04-29] MEDS ORDERED: AZITHROMYCIN 500 MG TAB PO STA (22:15)
[2023-04-29 22:49] VITALS: BP 120/74; PULSE 80; TEMP 98
== END 2023-04-29 22:38 | disposition home or self-care (01) ==
LOC: EC 17:11
DX: J18.9 Pneumonia, unspecified organism (principal); K21.9 Gastro-esophageal reflux disease without esophagitis; F41.9 Anxiety disorder, unspecified; F32.A Depression, unspecified; F17.200 Nicotine dependence, unspecified, uncomplicated; Z88.0 Allergy status to penicillin; Z88.8 Allergy status to other drugs, medicaments and biological substances; Z88.1 Allergy status to other antibiotic agents; Z79.899 Other long term (current) drug therapy; Z20.822 Contact with and (suspected) exposure to COVID-19
CPT/HCPCS: 36415; 93005; 85379; 83880; 80053; 84484; 85025; 85610; 85730; 87636; 71046; 71275; 99285; Q9967

== ENCOUNTER → 2023-06-04 | Outpatient (CLI) | payer MEDICARE ==
[2023-06-04 17:05] LABS: African American GFR (CKD) >90 (>60 ml/min/1.73 sqM); Blood Urea Nitrogen 9 mg/dL (7-17); Non-African American GFR(CKD) 88 (>60 ml/min/1.73 sqM)
--- NOTE | 2023-06-05 09:40 | CT ---
EXAMINATION TYPE: CT abdomen pelvis w con DATE OF EXAM: 06/04/2023 COMPARISON: PET CT 04/03/2023 INDICATION: abdominal pain, cramping, diarrhea, weight loss. hx of esophageal ca. DLP: 361.7 mGycm, Automated exposure control for dose reduction was used. CONTRAST: 100 mL of Isovue 300. Study performed with Oral Contrast TECHNIQUE: Axial images were obtained from above the diaphragm to the pubic rami in the axial plane a t 5 mm thick sections. Reconstructed images are reviewed on the computer in the coronal plane. FINDINGS: Limited CT sections are obtained the lung bases. The lung bases are clear. Gastric pull-through is present. There may be some abdominal herniation of colon into the posterior medial left lung. CT ABDOMEN: Liver: Normal Spleen: Normal Pancreas: Normal Adrenal glands: The adrenal glands are normal. Gallbladder: Surgically absent. Kidneys: No masses are evident. No hydronephrosis is present. No cysts are present. Delayed images were obtained through the kidneys, which remain unremarkable. There is a nonobstructing posterior u pper right renal calcification measuring 0.7 cm. Aorta: Vascular calcification is within the aorta. Inferior vena cava: Normal. CT PELVIS: Loops of bowel within the abdomen and pelvis are normal. There are loops of bowel lacking oral co ntrast limiting their evaluation. Some diverticular changes are within the sigmoid colon. Appendix: Not identified. Correlate with the surgical history. Urinary bladder: Normal. Genitourinary structures: Uterus and ovaries are not identified. Osseous structures: No suspicious lytic or sclerotic lesions. IMPRESSION: 1. No suspicious changes to suggest recurrent or metastatic esophageal cancer. 2. There appears to be herniation of colon into the left lung base. This was present previously.
== END | disposition home or self-care (01) ==
LOC: RADCTMAIN 16:04
PROVIDERS: ATTEND Internal Medicine Hematology & Oncology
DX: C15.5 Malignant neoplasm of lower third of esophagus (principal); D05.12 Intraductal carcinoma in situ of left breast; E78.5 Hyperlipidemia, unspecified; M79.7 Fibromyalgia; Z71.89 Other specified counseling
CPT/HCPCS: 82565; 84520; 74177; 36415; Q9967

== ENCOUNTER 2023-06-16 07:05 | Day surgery (SDC) | payer MEDICARE ==
[2023-06-15 12:43] VITALS: BMI 22.4
[~2023-06-16 07:05] MED LIST: LACTATED RINGERS 1,000 ML IV SCH; LIDOCAINE 1% (10MG/ML) FOR IV START INTRADERMA PRN
[2023-06-16 07:42] VITALS: TEMP 97.7
[2023-06-16] MEDS ORDERED: PROPOFOL 10 MG/ML 20 ML VIAL IV ONE (07:45)
--- NOTE | 2023-06-16 08:15 | P.PCN ---
Date of Procedure: 06/16/23 Procedure(s) Performed: Brief history: Patient is a pleasant 62-year-old white female scheduled for an elective upper endoscopy as well as colonoscopy as a part of evaluation of abdominal pain, chronic diarrhea and progressive weight loss of almost 40 pounds in the last 3 months duration. She is been having bowel movement daily from 5-6 a day which are loose to watery in consistency. She has history of esophageal cancer diagnosed in 2016 and is status post surgery in 2017 the distal esophagectomy and gastric pull-through and recent admission. Procedure performed: Esophagogastroduodenoscopy with biopsy Colonoscopy with random biopsies Preoperative diagnosis: Abdominal pain/chronic diarrhea/progressive weight loss of 40 pounds in the last 6 months duration Anesthesia: MAC Procedure: After informed consent was obtained from the patient was brought into the endoscopy unit and IV sedation was administered by anesthesia under continuous monitoring. Initially upper endoscopy was done. The Olympus GF 160 video endoscope was inserted inserted into the mouth and esophagus intubated without a ny difficulty and was gradually advanced into the stomach and duodenum and carefully examined. The bulb and second part of the duodenum appeared normal. Biopsies were done from the duodenum to rule out celiac disease. The scope was then withdrawn into the stomach adequately insufflated with air and upon careful examination the antrum had mild gastritis and biopsies were done from this area. Mucosa of the body, appeared normal. There was evidence of distal esophagectomy with gastric pull-through. The gastroesophageal anastomosis was located at 25 cm from the incisors and was widely patent. The proximal cervical esophagus had whitish plaques consistent with Luci esophagitis and biopsies were done from this area. . Patient tolerated the procedure well. At this time the patient continued to remain sedation. Initial digital rectal examination was normal. Olympus CF 160 video colonoscope was then inserted into the rectum and gradually advanced to the cecum without any difficulty. Careful examination was performed as the scope was gradually being withdrawn. The prep was excellent. The cecum, ascending colon, transverse colon, descending colon, sigmoid colon and rectum appeared normal. At her sigmoid diverticulosis. Random biopsies were done from ascending and descending colon to rule out microscopic/collagenous colitis. Retroflexion was performed in the rectum and no lesions were noted. Patient tolerated the procedure well. Impression: 1. Upper endoscopy revealed Luci esophagitis, normal esophageal gastric anastomosis and mild gastritis 2. Colonoscopy revealed scattered sigmoid diverticula cyst but no evidence of colitis or colorectal neoplasia. Recommendations: Findings of this examination were discussed with the patient as well as his family. She was advised to follow with the biopsy results. Follow up in office in 2 weeks.
[2023-06-16 08:34] VITALS: RESP 16
[2023-06-16 08:59] VITALS: BP 130/89; PULSE 71
== END 2023-06-16 09:36 | disposition home or self-care (01) ==
LOC: ORWHC2ENDO 07:05
PROVIDERS: ATTEND Internal Medicine Gastroenterology
DX: K29.50 Unspecified chronic gastritis without bleeding (principal); K21.00 Gastro-esophageal reflux disease with esophagitis, without bleeding; K57.30 Diverticulosis of large intestine without perforation or abscess without bleeding; K52.9 Noninfective gastroenteritis and colitis, unspecified; B37.81 Candidal esophagitis; I10 Essential (primary) hypertension; J44.9 Chronic obstructive pulmonary disease, unspecified; F17.200 Nicotine dependence, unspecified, uncomplicated; Z79.51 Long term (current) use of inhaled steroids; Z79.899 Other long term (current) drug therapy; Z88.0 Allergy status to penicillin; Z88.1 Allergy status to other antibiotic agents; Z91.041 Radiographic dye allergy status; Z91.048 Other nonmedicinal substance allergy status; Z85.01 Personal history of malignant neoplasm of esophagus
CPT/HCPCS: 88305; 45380; 43239; J2704

== ENCOUNTER → 2023-07-07 | Outpatient (CLI) | payer MEDICARE ==
[2023-07-07 20:04] LABS: Basophils # (A) 0.05 X 10*3/uL (0.00-0.10); Basophils % (A) 0.7 %; Eosinophils # (A) 0.08 X 10*3/uL (0.04-0.35); Eosinophils % (A) 1.2 %; HCT 46.3 % (37.2-46.3); HGB 15.1 g/dL (12.0-15.0); Lymphocytes # (A) 1.54 X 10*3/uL (0.90-5.00); Lymphocytes % (A) 22.3 %; MCH 32.3 pg (27.0-32.0); MCHC 32.6 g/dL (32.0-37.0); MCV 98.9 FL (80.0-97.0); Mean Platelet Volume 12.6 FL (9.5-12.2); Monocytes # (A) 0.48 X 10*3/uL (0.20-1.00); NRBC Per 100 WBC 0 X 10*3/uL (0.00-0.01); Neutrophils # (A) 4.73 X 10*3/uL (1.80-7.70); Neutrophils % (A) 68.5 %; Platelet Count 167 X 10*3/uL (140-440); RBC 4.68 X 10*6/uL (4.10-5.20)
[2023-07-07 20:41] LABS: ALT 17 U/L (8-44); AST 37 U/L (13-35); Albumin 3.7 g/dL (3.8-4.9); Albumin/Globulin Ratio 1.85 Ratio (1.60-3.17); Alkaline Phosphatase 111 U/L (41-126); Blood Urea Nitrogen 12.8 mg/dL (9.0-27.0); Calcium 9.7 mg/dL (8.7-10.3); Carbon Dioxide 21.1 mmol/L (21.6-31.8); Chloride 107 mmol/L (96-109); Glucose 95 mg/dL (70-110); Potassium 4.2 mmol/L (3.5-5.5); Sodium 141 mmol/L (135-145); Total Bilirubin <0.2 mg/dL (0.3-1.2); Total Protein 5.7 g/dL (6.2-8.2)
[2023-07-08 14:17] LABS: Cryptosporidium Antigen Negative (Negative)
== END | disposition home or self-care (01) ==
LOC: LABWHC1 13:17
PROVIDERS: ATTEND Internal Medicine Gastroenterology
DX: K52.9 Noninfective gastroenteritis and colitis, unspecified (principal)
CPT/HCPCS: 36415; 80053; 82656; 83516; 83630; 84443; 85025; 87045; 87046; 87328; 87329

== ENCOUNTER 2023-07-26 20:36 | Emergency (ER) | payer MEDICARE ==
--- NOTE | 2023-07-26 21:19 | ED ---
Weakness HPI - General Chief complaint: Chest Pain Stated complaint: Chest pain, SOB Time Seen by Provider: 07/26/23 20:54 Source: patient, family, RN notes reviewed, old records reviewed Mode of arrival: EMS Limitations: no limitations - History of Present Illness Initial comments: This is a 63-year-old female to the emergency department today for evaluation of significant abdominal pain shortness of breath belly pain chest pain with history of significant weight loss. Patient brought to the ER for further evaluation of significant weight loss MD Complaint: generalized weakness, lack of energy, difficulty walking -: month(s) Location: generalized Severity: severe Severity scale (1-10): 10 Quality: tingling, sharp Consistency: constant Improves with: none Worsens with: none Context: recent illness, recent surgery (6 years ago) Associated Symptoms: chest pain, loss of appetite, nausea/vomiting, shortness of breath - Related Data Home Medications Medication Instructions Recorded Confirmed busPIRone HCL 10 mg PO BID 08/03/16 06/16/23 Metoprolol Tartrate 25 mg PO BID 12/26/16 06/16/23 Omeprazole [PriLOSEC] 20 mg PO BID 06/15/17 06/16/23 Venlafaxine HCl [Effexor] 75 mg PO BID 04/04/19 06/16/23 Losartan [Cozaar] 50 mg PO QAM 11/15/21 06/16/23 Albuterol Nebulized [Ventolin 2.5 mg INHALATION Q6H PRN 06/15/23 06/16/23 Nebulized] Dextroamphetamine/Amphetamine 10 mg PO DAILY PRN 06/15/23 06/16/23 [Dextroamp-Amphetamine 5 mg Tab] Dextroamphetamine/Amphetamine 30 mg PO 0700,1400 06/15/23 06/16/23 [Dextroamp-Amphetamine 5 mg Tab] Multivit-Min/Iron/Folic/Lutein 1 each PO DAILY 06/15/23 06/16/23 [Centrum Silver Women Tablet] Potassium Chloride ER [K-Dur 10] 10 meq PO DAILY 06/15/23 06/16/23 Allergies Allergy/AdvReac Type Severity Reaction Status Date / Time adhesive tape Allergy REDNESS Verified 06/16/23 07:27 AND BLISTERS cefaclor Allergy Rash/Hives Verified 06/16/23 07:27 cephalexin Allergy Rash/Hives Verified 06/16/23 07:27 escitalopram Allergy Rash/Hives Verified 06/16/23 07:27 Penicillins Allergy Rash/Hives/Swelling Verified 06/16/23 07:27 all over povidone-iodine Allergy topical-Bj Verified 06/16/23 07:27 h/Hives Review of Systems ROS Statement: Those systems with pertinent positive or pertinent negative responses have been documented in the HPI. ROS Other: All systems not noted in ROS Statement are negative. Past Medical History Past Medical History: Cancer, GERD/Reflux Additional Past Medical History / Comment(s): COLEMAN'S ESOPHAGUS , esophageal cancer-HAD CHEMO. SORES ON LT FOREARM-HEALED. NARCOLEPSY. CONSTANT VOMITTING. OCCASSIONAL BLE EDEMA History of Any Multi-Drug Resistant Organisms: MRSA Date of last positivie culture/infection: 12/2016 MDRO Source:: PEG TUBE SITE Past Surgical History: Section, Cholecystectomy, Hysterectomy, Orthopedic Surgery, Tubal Ligation Additional Past Surgical History / Comment(s): ,colonoscopy, oopherectomy, 2/3rds ESOPHAGECTOMY, 1/3rd GASTRECTOMY, PEG TUBE INSERTION AND REMOVAL R/T INFECTION. SCOPE LT KNEE, EGD, CYST REMOVED RT WRIST, C-SECT X 4, Past Anesthesia/Blood Transfusion Reactions: No Reported Reaction Additional Past Anesthesia/Blood Transfusion Reaction / Comment(s): no hx blood transfusion Smoking Status: Current every day smoker - Past Family History Mother Family Medical History: Cancer Sister(s) Family Medical History: Cancer Brother(s) Family Medical History: Cancer General Exam Limitations: no limitations General appearance: alert, anxious Head exam: Present: atraumatic, normocephalic, normal inspection Eye exam: Present: normal appearance, PERRL, EOMI. Absent: scleral icterus, conjunctival injection, periorbital swelling ENT exam: Present: normal exam, mucous membranes moist Neck exam: Present: normal inspection. Absent: tenderness, meningismus, lymphadenopathy Respiratory exam: Present: respiratory distress, accessory muscle use, decreased breath sounds, prolonged expiratory. Absent: wheezes, rales, rhonchi, stridor Cardiovascular Exam: Present: normal rhythm, tachycardia, normal heart sounds. Absent: systolic murmur, diastolic murmur, rubs, gallop, clicks GI/Abdominal exam: Present: soft, normal bowel sounds. Absent: distended, tenderness, guarding, rebound, rigid Extremities exam: Present: normal inspection, full ROM, normal capillary refill. Absent: tenderness, pedal edema, joint swelling, calf tenderness Back exam: Present: normal inspection Neurological exam: Present: alert, oriented X3, CN II-XII intact Psychiatric exam: Present: normal affect, normal mood Skin exam: Present: warm, dry, intact, normal color. Absent: rash Course Vital Signs 07/26/23 07/26/23 07/26/23 20:39 22:36 22:50 Pulse Rate 104 H 104 H Respiratory 18 16 18 Rate Blood Pressure 103/86 103/68 O2 Sat by Pulse 96 96 Oximetry 07/27/23 00:38 Pulse Rate 110 H Respiratory 18 Rate Blood Pressure 90/72 O2 Sat by Pulse 97 Oximetry - Reevaluation(s) Reevaluation #1: 07/26/23 23:46 Medical records reviewed Reevaluation #2: 07/26/23 23:47 Patient does have difficulty control pain here in the ER Reevaluation #3: 07/26/23 23:47 Patient informed results and questions answered Reevaluation #4: 07/26/23 23:47 Was pt. sent in by a medical professional or institution (, PA, SURGICAL BRACE MAKER, urgent care, hospital, or assisted...) When possible be specific @ -no Did you speak to anyone other than the patient for history (EMS, parent, family, police, friend...)? What history was obtained from this source @ -no Did you review nursing and triage notes (agree or disagree)? Why? @ -agree Are old charts reviewed (outside hosp., previous admission, EMS record, old EKG, old radiological studies, urgent care reports/EKG's, assisted records)? Report findings @ -yes Differential Diagnosis (chest pain, altered mental status, abdominal pain women, abdominal pain men, vaginal bleeding, weakness, fever, dyspnea, syncope, headache, dizziness, GI bleed, back pain, seizure, CVA, palpatations, mental health, musculoskeletal)? @ -prior EKG interpreted by me (3pts min.). @ -yes X-rays interpreted by me (1pt min.). @ -yes positive for small bowel obstruction intrathoracic bowel CT interpreted by me (1pt min.). @ -Significant small bowel obstruction inside the thoracic cavity U/S interpreted by me (1pt. min.). @ -no What testing was considered but not performed or refused? (CT, X-rays, U/S, labs)? Why? @ -none What meds were considered but not given or refused? Why? @ -none Did you discuss the management of the patient with other professionals (professionals i.e. Dr., PA, SURGICAL BRACE MAKER, lab, RT, psych nurse, social problems specialist, application release manager, teacher, registration officer, case specialist)? Give summary @ -no Was smoking cessation discussed for >3mins.? @ -no Were there social determinants of health that impacted care today? How? (Homelessness, low income, unemployed, alcoholism, drug addiction, transportation, low edu. Level, literacy, decrease access to med. care, senior care, rehab)? @ -none Was there de-escalation of care discussed even if they declined (Discuss DNR or withdrawal of care, Hospice)? DNR status @ -no What co-morbidities impacted this encounter? (DM, HTN, Smoking, COPD, CAD, Cancer, CVA, ARF, Chemo, Hep., AIDS, mental health diagnosis, sleep apnea, morbid obesity)? @ -none Was patient admitted / discharged? Hospital course, mention meds given and route, prescriptions, significant lab abnormalities, going to OR and other pertinent info. @ - 63 female D to the emergency department for evaluation of severe abdominal pain weakness weight loss chest pain shortness of breath nausea vomiting and diarrhea. Patient does have prior esophageal cancer with esophagectomy pull- through bowel herniation, patient is transferred to prior institution that did prior surgery and patient is accepted for transfer Transferred Was critical care preformed (if so, how long)? @ -yes31 Undiagnosed new problem with uncertain prognosis? @ -no Drug Therapy requiring intensive monitoring for toxicity (Heparin, Nitro, Insulin, Cardizem)? @ -no Were any procedures done? @ -no Diagnosis/symptom? @ -Hiatal hernia with small bowel obstruction inside the thoracic cavity Acute, or Chronic, or Acute on Chronic? @ -Acute Uncomplicated (without systemic symptoms) or Complicated (systemic symptoms)? @ -Complicated Side effects of treatment? @ -no Exacerbation, Progression, or Severe Exacerbation? @ -exacerbation Poses a threat to life or bodily function? How? (Chest pain, USA, NH, pneumonia, PE, COPD, DKA, ARF, appy, cholecystitis, CVA, Diverticulitis, Homicidal, Suicidal, threat to staff... and all critical care pts) @ -yes significant postoperative complications Reevaluation #5: 07/26/23 23:47 Differential Abdominal Pain Women: Appendicitis, Cholecystitis, diverticulosis, ischemic bowel, pancreatitis, hepatitis, UTI, gastroenteritis, AAA, incarcerated hernia, bowel obstruction, constipation, inflammatory bowel, hepatitis, peptic ulcer disease, splenic infarction, perforated viscus, vulvitis, ovarian torsion, PID, kidney stone, placenta abruption, this is not meant to be an all-inclusive list - Consultations Consultation #1: [place] with [facility] who are accepting patient transfer is the care of her primary surgeon, Dr. Domingo EKG Findings - EKG Comments: EKG Findings:: EKG is sinus tachycardia 106 ID 145 QRS 77 QTc 400 Medical Decision Making - Medical Decision Making 63 female D to the emergency department for evaluation of severe abdominal pain weakness weight loss chest pain shortness of breath nausea vomiting and diarr hea. Patient does have prior esophageal cancer with esophagectomy pull-through bowel herniation, patient is transferred to prior institution that did prior surgery and patient is accepted for transfer - Lab Data Result diagrams: 07/26/23 21:04 07/26/23 21:04 Lab Results 07/26/23 07/26/23 07/26/23 Range/Units 21:04 21:04 21:04 WBC 12.7 H (3.8-10.6) k/uL RBC 4.97 (3.80-5.40) m/uL Hgb 16.4 H (11.4-16.0) gm/dL Hct 51.3 H (34.0-46.0) % MCV 103.2 H (80.0-100.0) fL MCH 33.0 (25.0-35.0) pg MCHC 32.0 (31.0-37.0) g/dL RDW 14.6 (11.5-15.5) % Plt Count 195 (150-450) k/uL MPV 10.0 Neutrophils % 85 % Lymphocytes % 9 % Monocytes % 4 % Eosinophils % 0 % Basophils % 0 % Neutrophils # 10.8 H (1.3-7.7) k/uL Lymphocytes # 1.1 (1.0-4.8) k/uL Monocytes # 0.6 (0-1.0) k/uL Eosinophils # 0.0 (0-0.7) k/uL Basophils # 0.0 (0-0.2) k/uL Hypochromasia Slight Macrocytosis Slight PT 10.8 (10.0-12.5) sec INR 1.0 (<1.2) APTT 22.7 (22.0-30.0) sec Sodium 139 (137-145) mmol/L Potassium 4.1 (3.5-5.1) mmol/L Chloride 114 H (98-107) mmol/L Carbon Dioxide 19 L (22-30) mmol/L Anion Gap 6 mmol/L BUN 12 (7-17) mg/dL Creatinine 0.80 (0.52-1.04) mg/dL Est GFR (CKD-EPI)AfAm >90 (>60 ml/min/1.73 sqM) Est GFR (CKD-EPI)NonAf 79 (>60 ml/min/1.73 sqM) Glucose 159 H (74-99) mg/dL Lactic Ac Sepsis Rflx Plasma Lactic Acid Joe (0.7-2.0) mmol/L Calcium 9.9 (8.4-10.2) mg/dL Phosphorus 4.5 (2.5-4.5) mg/dL Magnesium 1.8 (1.6-2.3) mg/dL Total Bilirubin 0.3 (0.2-1.3) mg/dL AST 46 H (14-36) U/L ALT 24 (4-34) U/L Alkaline Phosphatase 106 (38-126) U/L Creatine Kinase 36 (30-135) U/L Troponin I (0.000-0.034) ng/mL NT-Pro-B Natriuret Pep 885 pg/mL Total Protein 6.4 (6.3-8.2) g/dL Albumin 3.7 (3.5-5.0) g/dL Lipase 36 (23-300) U/L TSH 1.640 (0.465-4.680) mIU/L 07/26/23 07/26/23 07/27/23 Range/Units 21:04 21:05 00:04 WBC (3.8-10.6) k/uL RBC (3.80-5.40) m/uL Hgb (11.4-16.0) gm/dL Hct (34.0-46.0) % MCV (80.0-100.0) fL MCH (25.0-35.0) pg MCHC (31.0-37.0) g/dL RDW (11.5-15.5) % Plt Count (150-450) k/uL MPV Neutrophils % % Lymphocytes % % Monocytes % % Eosinophils % % Basophils % % Neutrophils # (1.3-7.7) k/uL Lymphocytes # (1.0-4.8) k/uL Monocytes # (0-1.0) k/uL Eosinophils # (0-0.7) k/uL Basophils # (0-0.2) k/uL Hypochromasia Macrocytosis PT (10.0-12.5) sec INR (<1.2) APTT (22.0-30.0) sec Sodium (137-145) mmol/L Potassium (3.5-5.1) mmol/L Chloride (98-107) mmol/L Carbon Dioxide (22-30) mmol/L Anion Gap mmol/L BUN (7-17) mg/dL Creatinine (0.52-1.04) mg/dL Est GFR (CKD-EPI)AfAm (>60 ml/min/1.73 sqM) Est GFR (CKD-EPI)NonAf (>60 ml/min/1.73 sqM) Glucose (74-99) mg/dL Lactic Ac Sepsis Rflx Y Plasma Lactic Acid Joe 3.3 H* (0.7-2.0) mmol/L Calcium (8.4-10.2) mg/dL Phosphorus (2.5-4.5) mg/dL Magnesium (1.6-2.3) mg/dL Total Bilirubin (0.2-1.3) mg/dL AST (14-36) U/L ALT (4-34) U/L Alkaline Phosphatase (38-126) U/L Creatine Kinase (30-135) U/L Troponin I 0.043 H* (0.000-0.034) ng/mL NT-Pro-B Natriuret Pep pg/mL Total Protein (6.3-8.2) g/dL Albumin (3.5-5.0) g/dL Lipase (23-300) U/L TSH (0.465-4.680) mIU/L - Radiology Data Radiology results: report reviewed (CT chest CT head and pelvis is positive for esophagectomy with gastric pull-through and herniation with small bowel obstruction), image reviewed Disposition Clinical Impression: Atypical chest pain, Chest pain, Abdominal pain, Bowel obstruction Disposition: OTHER INSTITUTION NOT DEFINED Condition: Serious Is patient prescribed a controlled substance at d/c from ED?: No Referrals: Eros Carlson DO [Primary Care Provider] - 1-2 days Time of Disposition: 23:50 - Out of Hospital Transfer - Req. Specs Out of Hospital Transfer - Requested Specifics: Other Emergency Center ([facility])
[2023-07-26 21:30] LABS: Basophils % (A) 0 %; Eosinophils % (A) 0 %; HCT 51.3 % (34.0-46.0); HGB 16.4 gm/dL (11.4-16.0); Hypochromasia Slight; Lymphocytes # (A) 1.1 k/uL (1.0-4.8); Lymphocytes % (A) 9 %; MCV 103.2 fL (80.0-100.0); Macrocytosis Slight; Monocytes # (A) 0.6 k/uL (0-1.0); Monocytes % (A) 4 %; Neutrophils # (A) 10.8 k/uL (1.3-7.7); Neutrophils % (A) 85 %; Platelet Count 195 k/uL (150-450); RBC 4.97 m/uL (3.80-5.40); RDW 14.6 % (11.5-15.5); WBC 12.7 k/uL (3.8-10.6)
[2023-07-26 21:40] LABS: Partial Thromboplastin Time 22.7 sec (22.0-30.0); Prothrombin Time 10.8 sec (10.0-12.5)
[2023-07-26 21:59] LABS: ALT 24 U/L (4-34); AST 46 U/L (14-36); African American GFR (CKD) >90 (>60 ml/min/1.73 sqM); Albumin 3.7 g/dL (3.5-5.0); Alkaline Phosphatase 106 U/L (38-126); Anion Gap 6 mmol/L; Blood Urea Nitrogen 12 mg/dL (7-17); Calcium 9.9 mg/dL (8.4-10.2); Carbon Dioxide 19 mmol/L (22-30); Chloride 114 mmol/L (98-107); Creatine Kinase 36 U/L (30-135); Glucose 159 mg/dL (74-99); Lipase 36 U/L (23-300); Magnesium 1.8 mg/dL (1.6-2.3); Non-African American GFR(CKD) 79 (>60 ml/min/1.73 sqM); Phosphorus 4.5 mg/dL (2.5-4.5); Potassium 4.1 mmol/L (3.5-5.1); Sodium 139 mmol/L (137-145); Total Bilirubin 0.3 mg/dL (0.2-1.3); Total Protein 6.4 g/dL (6.3-8.2)
[2023-07-26 22:04] LABS: NT-Pro-B-Type Natriuretic Pept 885 pg/mL
[2023-07-26] MEDS: HYDROmorphone 1 MG/ML 1 ML SYRINGE IVP STA ×2 (22:21→23:44)
--- NOTE | 2023-07-26 22:57 | CT ---
EXAM: CT Angiography Chest With Intravenous Contrast CLINICAL HISTORY: SOB PAIN TECHNIQUE: Axial computed tomographic angiography images of the chest with intravenous contrast. CTDI is 10.3 mGy and DLP is 548.3 mGy-cm. This CT exam was performed using one or more of the following dose reduction techniques: automated exposure control, adjustment of the mA and/or kV according to patient size, and/or use of iterative reconstruction technique. 3D and MIP reconstructed images were created and reviewed. COMPARISON: CT embolism [address] chest 04/29/2023. FINDINGS: Pulmonary arteries: No pulmonary embolism. Aorta: No thoracic aortic aneurysm or dissection. Lungs: Marked interval increase in gross herniation of: Into the left chest now extending to the apex. Gas distended colon with a air-fluid levels consistent with obstruction. No definite wall thickening or pneumatosis. Associated compressive atelectasis surrounding the herniated bowel. Small amount of probable atelectasis the left lower lobe. Pleural space: No pleural effusion. No pneumothorax. Heart: No cardiomegaly. No pericardial effusion. No evidence of RV dysfunction. Bones/joints: No acute fracture. Degenerative changes of the spine and bilateral shoulders Soft tissues: Unremarkable. Mediastinum: Status post esophagectomy with fluid and debris-filled gastric pull through. IMPRESSION: No evidence for pulmonary embolus. Interval increase in severe herniation of gas distended colon into the left hemithorax to the apex. Appearance suggests obstruction of the intrathoracic bowel in the left chest. Associated compressive atelectasis. Status post esophagectomy with right-sided gastric pull through.
--- NOTE | 2023-07-26 23:23 | CT ---
EXAM: CT Abdomen and Pelvis With Intravenous Contrast CLINICAL HISTORY: PAIN TECHNIQUE: Axial computed tomography images of the abdomen and pelvis with intravenous contrast. CTDI is 5.2 mGy and DLP is 240.3 mGy-cm. This CT exam was performed using one or more of the following dose reduction techniques: automated exposure control, adjustment of the mA and/or kV according to patient size, and/or use of iterative reconstruction technique. COMPARISON: 06/04/2023. FINDINGS: Lung bases: Redemonstrated gross herniation of bowel into the left hemithorax to the lung apex. Dilatation of the bowel consistent with obstruction within the hernia. Associated compressive atelectasis. . ABDOMEN: Liver: Hypodense/fatty. 17.2 cm length. No mass. Gallbladder and bile ducts: Post cholecystectomy. No ductal dilation. Pancreas: Unremarkable. No mass. No ductal dilation. Spleen: Unremarkable. No splenomegaly. Adrenals: Unremarkable. No mass. Kidneys and ureters: No obstructive uropathy. Nonobstructing calculus in the upper pole of the right kidney. Bilateral renal scarring. Stomach and bowel: Status post esophagectomy with gastric pull-through No intra-abdominal small and large bowel dilatation. Air-fluid levels in nondilated colon within the pelvis. Collapsed sigmoid colon with diffuse wall thickening in multiple diverticuli. Small amount of free fluid. PELVIS: Appendix: No findings to suggest acute appendicitis. Bladder: Partially contracted. No mass. Reproductive: Unremarkable as visualized. ABDOMEN and PELVIS: Bones/joints: No acute fracture. Levoscoliosis with degenerative changes of the lumbar spine. Soft tissues: Unremarkable. Vasculature: Atherosclerotic vascular calcifications. No abdominal aortic aneurysm. Lymph nodes: Unremarkable. No enlarged lymph nodes. IMPRESSION: Interval gross herniation of colon into the left hemithorax. Bowel within the left hemithorax appears obstructed. No intra-abdominal or pelvic bowel obstruction. Status post esophagectomy with gastric pull-through. Air-fluid levels within nondilated bowel the pelvis. Sigmoid colon diverticulosis with wall thickening in mild surrounding infiltration suspicious for diverticulitis. Otherwise no change. <MYCVCSECTION> Communications: 07/26/23 23:37 Call Doctor Regarding Above results, called Dr. Doran on 07/26 23:37 (-05:00)
[2023-07-26] MEDS: PANTOPRAZOLE 40 MG/10 ML VIAL IVP STA (23:43)
[2023-07-26] MEDS: PROCHLORPERAZINE INJ 10 MG/2 ML VIAL IVP STA (23:43)
[2023-07-27] MEDS: metroNIDAZOLE-NS PMX 500 MG in SALINE 1 100ML.BAG IVPB STA (00:04)
--- NOTE | 2023-07-27 00:05 | XR ---
EXAMINATION TYPE: XR chest 2V DATE OF EXAM: 07/26/2023 9:47 PM CLINICAL INDICATION:Female, 63 years old with history of Chest Pain; [facility] COMPARISON: Previous 2V chest x-ray 04/29/2023, same day CT chest abdomen pelvis. TECHNIQUE: XR chest 2V. Frontal and lateral views of the chest.. FINDINGS: Lines/Tubes/Devices: EKG leads overlie the chest. No indwelling lines are seen. Heart/mediastinum: Cardiomediastinal silhouette is partially obscured by the left chest process. Hear t size is indeterminate based on this study. There is some element of mass effect along the left medi astinal border, better seen on CT. Pulmonary vascularity: Not increased, Lungs/Pleura: Right lung and pleural space are clear. On the left, there has been interval developmen t of tremendous herniation of multiple loops of bowel up into the left chest extending to the level o f the aortic arch. Bowel loops appear dilated with air-fluid levels suggesting obstruction. There is compressive atelectasis of the left mid to lower lung due to the herniation. Musculoskeletal: No acute osseous abnormality demonstrated in the limits of the exam. Multilevel en dplate spurring in the spine. Mild degenerative change of the shoulders. Other findings: None. IMPRESSION: 1. Tremendous herniation of multiple loops of bowel into the left chest, with high concern for obstr uction. 2. Compressive atelectasis of the left mid to lower lung due to the herniation.
[2023-07-27 01:07] VITALS: BP 90/72; PULSE 110; RESP 18
== END 2023-07-27 00:50 | disposition other institution (70) ==
LOC: EC 20:36
DX: K56.609 Unspecified intestinal obstruction, unspecified as to partial versus complete obstruction (principal); K57.30 Diverticulosis of large intestine without perforation or abscess without bleeding; K63.89 Other specified diseases of intestine; R07.89 Other chest pain; K21.9 Gastro-esophageal reflux disease without esophagitis; F17.200 Nicotine dependence, unspecified, uncomplicated; Z79.899 Other long term (current) drug therapy; Z88.0 Allergy status to penicillin; Z88.1 Allergy status to other antibiotic agents; Z88.8 Allergy status to other drugs, medicaments and biological substances; Z91.041 Radiographic dye allergy status; Z90.49 Acquired absence of other specified parts of digestive tract
CPT/HCPCS: 36415 ×2; 93005; 83880; 80053; 84443; 82550; 83605; 83690; 83735; 84100; 84484; 85025; 85610; 85730; 71046; 71275; 74177; 99291; 96374; 96375 ×2; 96376; J0780; J1170; C9113; Q9967; J1836

== ENCOUNTER 2023-08-10 13:24 | Emergency (ER) | payer MEDICARE ==
[2023-08-10 14:37] LABS: Basophils # (A) 0.1 k/uL (0-0.2); Basophils % (A) 1 %; Eosinophils # (A) 0.3 k/uL (0-0.7); Eosinophils % (A) 4 %; HCT 41.7 % (34.0-46.0); HGB 13.6 gm/dL (11.4-16.0); Lymphocytes # (A) 1.5 k/uL (1.0-4.8); Lymphocytes % (A) 23 %; MCH 32.9 pg (25.0-35.0); MCHC 32.6 g/dL (31.0-37.0); MCV 100.7 fL (80.0-100.0); Macrocytosis Slight; Mean Platelet Volume 9.1; Monocytes # (A) 0.3 k/uL (0-1.0); Monocytes % (A) 5 %; Neutrophils # (A) 4.1 k/uL (1.3-7.7); Neutrophils % (A) 65 %; RBC 4.14 m/uL (3.80-5.40); RDW 14.1 % (11.5-15.5); WBC 6.4 k/uL (3.8-10.6)
[2023-08-10 14:43] LABS: Platelet Count 426 k/uL (150-450)
--- NOTE | 2023-08-10 15:03 | CT ---
EXAMINATION TYPE: CT chest angio for PE DATE OF EXAM: 08/10/2023 COMPARISON: 07/26/2023 HISTORY: Dyspnea, weakness, recent surgery to chest/abdomen CT DLP: 210.6 mGycm CONTRAST: CT chest with contrast and 3D reconstruction with MIP imaging is performed with IV Contrast, patient injected with 100 mL of Isovue 370. Contrast-enhanced CT of the chest was performed through the course of the pulmonary arteries with mirta g and mediastinal window settings submitted. 3D reconstruction with MIP imaging was also performed. PULMONARY ARTERIES: The pulmonary arteries and their major tributaries are patent. I do not see selwyn dence for sizable filling defect to suggest pulmonary embolic process. LUNGS: The lungs are clear and free of infiltrate. No evidence for atelectasis. No pulmonary nodule or mass is detected. Small bilateral pleural effusions right greater than left with scattered basila r compressive atelectasis. MEDIASTINUM: Thoracic aorta is of normal caliber. The heart is not enlarged. No evidence for medias tinal mass. No mediastinal lymph nodes greater than 1cm. Fixed hiatal hernia with gastroesophageal r eflux. Postoperative changes left hemidiaphragm. HILAR STRUCTURES: No evidence for mass. No hilar lymph nodes greater than 1 cm. UPPER ABDOMEN: No significant abnormality is seen. IMPRESSION: 1. No evidence for Pulmonary embolism at this time.
--- NOTE | 2023-08-10 15:10 | ED ---
SOB HPI - General Chief Complaint: Shortness of Breath Stated Complaint: SOB,Low 02 when standing Time Seen by Provider: 08/10/23 13:34 Source: patient, RN notes reviewed Mode of arrival: ambulatory Limitations: no limitations - History of Present Illness Initial Comments: This is a 63-year-old female who presents to the emergency department for shortness of breath. States that she had surgery at the end of last month due to her bowels being up in her chest with a bowel obstruction. She was transferred to another facility and had surgery where the bowels were pushed down. States that she has had increasing shortness of breath when she stands up, and this causes her oxygen saturation to drop. This occurred at her primary care provider's office, and it dropped to 89%. However, states that she has been short of breath since before this incident occurred. Denies any chest pain. She was instructed by her primary care provider to come to the emergency department to rule out a pulmonary embolus. Not taking any blood thinners. MD Complaint: shortness of breath - Related Data Home Medications Medication Instructions Recorded Confirmed busPIRone HCL 10 mg PO BID 08/03/16 06/16/23 Metoprolol Tartrate 25 mg PO BID 12/26/16 06/16/23 Omeprazole [PriLOSEC] 20 mg PO BID 06/15/17 06/16/23 Venlafaxine HCl [Effexor] 75 mg PO BID 04/04/19 06/16/23 Losartan [Cozaar] 50 mg PO QAM 11/15/21 06/16/23 Albuterol Nebulized [Ventolin 2.5 mg INHALATION Q6H PRN 06/15/23 06/16/23 Nebulized] Dextroamphetamine/Amphetamine 10 mg PO DAILY PRN 06/15/23 06/16/23 [Dextroamp-Amphetamine 5 mg Tab] Dextroamphetamine/Amphetamine 30 mg PO 0700,1400 06/15/23 06/16/23 [Dextroamp-Amphetamine 5 mg Tab] Multivit-Min/Iron/Folic/Lutein 1 each PO DAILY 06/15/23 06/16/23 [Centrum Silver Women Tablet] Potassium Chloride ER [K-Dur 10] 10 meq PO DAILY 06/15/23 06/16/23 Allergies Allergy/AdvReac Type Severity Reaction Status Date / Time adhesive tape Allergy REDNESS Verified 08/10/23 13:33 AND BLISTERS cefaclor Allergy Rash/Hives Verified 08/10/23 13:33 cephalexin Allergy Rash/Hives Verified 08/10/23 13:33 escitalopram Allergy Rash/Hives Verified 08/10/23 13:33 Penicillins Allergy Rash/Hives/Swelling Verified 08/10/23 13:33 all over povidone-iodine Allergy topical-Bj Verified 08/10/23 13:33 h/Hives Review of Systems ROS Statement: Those systems with pertinent positive or pertinent negative responses have been documented in the HPI. ROS Other: All systems not noted in ROS Statement are negative. Past Medical History Past Medical History: Cancer, GERD/Reflux Additional Past Medical History / Comment(s): COLEMAN'S ESOPHAGUS , esophageal cancer-HAD CHEMO. SORES ON LT FOREARM-HEALED. NARCOLEPSY. CONSTANT VOMITTING. OCCASSIONAL BLE EDEMA History of Any Multi-Drug Resistant Organisms: MRSA Date of last positivie culture/infection: 12/2016 MDRO Source:: PEG TUBE SITE Past Surgical History: Section, Cholecystectomy, Hysterectomy, Orthopedic Surgery, Tubal Ligation Additional Past Surgical History / Comment(s): ,colonoscopy, oopherectomy, 2/3rds ESOPHAGECTOMY, 1/3rd GASTRECTOMY, PEG TUBE INSERTION AND REMOVAL R/T IN FECTION. SCOPE LT KNEE, EGD, CYST REMOVED RT WRIST, C-SECT X 4, Past Anesthesia/Blood Transfusion Reactions: No Reported Reaction Additional Past Anesthesia/Blood Transfusion Reaction / Comment(s): no hx blood transfusion Past Psychological History: Anxiety, Depression Smoking Status: Current every day smoker Past Alcohol Use History: None Reported Past Drug Use History: None Reported - Past Family History Mother Family Medical History: Cancer Sister(s) Family Medical History: Cancer Brother(s) Family Medical History: Cancer General Exam Limitations: no limitations General appearance: alert, in no apparent distress Head exam: Present: atraumatic, normocephalic, normal inspection Respiratory exam: Present: normal lung sounds bilaterally. Absent: respiratory distress, wheezes, rales, rhonchi, stridor Cardiovascular Exam: Present: regular rate, normal rhythm, normal heart sounds. Absent: systolic murmur, diastolic murmur, rubs, gallop, clicks Neurological exam: Present: alert, oriented X3, CN II-XII intact Psychiatric exam: Present: normal affect, normal mood Skin exam: Present: warm, dry, intact, normal color. Absent: rash Course Vital Signs 08/10/23 08/10/23 13:30 16:51 Temperature 98 F 97.9 F Pulse Rate 80 76 Respiratory 22 18 Rate Blood Pressure 117/81 109/66 O2 Sat by Pulse 99 99 Oximetry Medical Decision Making - Medical Decision Making This is a 63-year-old female who presents to the emergency department for shortness of breath. Was pt. sent in by a medical professional or institution? @ -No Did you speak to anyone other than the patient for history? @ -No Did you review nursing and triage notes? @ -Yes, and I agree, it is accurate with regards to the patient's symptoms. Were old charts reviewed? @ -No Differential Diagnosis? @ -Differential Dyspnea: Coronary syndrome, arrhythmia, tamponade, asthma, COPD, pulmonary embolism, pneumonia, pneumothorax, pulmonary effusion, anaphylaxis, diabetic ketoacidosis, flailed chest, pulmonary contusion, diaphragmatic rupture, anemia, neuromuscular, this is not meant to be an all-inclusive list. EKG interpreted by me (3pts min.)? @ -EKG interpreted by me demonstrating the following: Sinus rhythm. Ventricular rate 72 beats per minute, CO interval 141 ms, QRS duration 73 ms, QTC 427 ms. X-rays interpreted by me (1pt min.)? @ -Not obtained CT interpreted by me (1pt min.)? @ -CTA of the chest obtained. My interpretation identifies no evidence of a pulmonary embolus. U/S interpreted by me (1pt. min.)? @ -Not obtained What testing was considered but not performed? (CT, X-rays, U/S, labs)? Why? @ -None What meds were considered but not given? Why? @ -None Did you discuss the management of the patient with other professionals? @ -No Did you reconcile home meds? @ -No Was smoking cessation discussed for >3mins.? @ -No Was critical care preformed (if so, how long)? @ -No Were there social determinants of health that impacted care today? How? (Homelessness, low income, unemployed, alcoholism, drug addiction, das sportation, low edu. Level, literacy, decrease access to med. care, [facility], rehab)? @ -No Was there de-escalation of care discussed even if they declined? (Discuss DNR or withdrawal of care, Hospice)? @ -No What co-morbidities impacted this encounter? (DM, HTN, Smoking, COPD, CAD, Cancer, CVA, Hep., AIDS, mental health diagnosis, sleep apnea, morbid obesity)? @ -None Was patient admitted / discharged? @ -Discharged. Lab work obtained and found to be unremarkable. Given that the patient just had surgery, we opted to avoid a d-dimer, given the likelihood that it would be high regardless, and just proceeded with a CTA. CTA of the chest revealed no evidence of a pulmonary embolus or other acute process. Findings reviewed with the patient. She maintained adequate oxygen saturation in the emergency department without any signs of distress. Patient discharged home in stable condition and will follow up with her primary care provider. Undiagnosed new problem with uncertain prognosis? @ -None Drug Therapy requiring intensive monitoring for toxicity (Heparin, Nitro, Insulin, Cardizem)? @ -None Were any procedures done? @ -None Diagnosis/symptom? @ -Dyspnea Acute, or Chronic, or Acute on Chronic? @ -Acute Uncomplicated (without systemic symptoms) or Complicated (systemic symptoms)? @ -Uncomplicated Side effects of treatment? @ -None Exacerbation, Progression, or Severe Exacerbation] @ -Not applicable Poses a threat to life or bodily function? @ -No Return precautions reviewed in depth, the patient is instructed to return to the emergency department with any new, worsening, or concerning symptoms. Patient verbalized understanding. This case was discussed in detail with the attending ED physician, Dr. Celis. Presentation, findings, and treatment plan discussed in detail as well. - Lab Data Result diagrams: 08/10/23 14:09 08/10/23 15:06 Lab Results 08/10/23 08/10/23 08/10/23 Range/Units 14:09 15:06 15:06 WBC 6.4 (3.8-10.6) k/uL RBC 4.14 (3.80-5.40) m/uL Hgb 13.6 (11.4-16.0) gm/dL Hct 41.7 (34.0-46.0) % MCV 100.7 H (80.0-100.0) fL MCH 32.9 (25.0-35.0) pg MCHC 32.6 (31.0-37.0) g/dL RDW 14.1 (11.5-15.5) % Plt Count 426 D (150-450) k/uL MPV 9.1 Neutrophils % 65 % Lymphocytes % 23 % Monocytes % 5 % Eosinophils % 4 % Basophils % 1 % Neutrophils # 4.1 (1.3-7.7) k/uL Lymphocytes # 1.5 (1.0-4.8) k/uL Monocytes # 0.3 (0-1.0) k/uL Eosinophils # 0.3 (0-0.7) k/uL Basophils # 0.1 (0-0.2) k/uL Macrocytosis Slight PT 11.4 (10.0-12.5) sec INR 1.1 (<1.2) APTT 21.7 L (22.0-30.0) sec Sodium 137 (137-145) mmol/L Potassium 4.0 (3.5-5.1) mmol/L Chloride 111 H (98-107) mmol/L Carbon Dioxide 21 L (22-30) mmol/L Anion Gap 5 mmol/L BUN 10 (7-17) mg/dL Creatinine 0.61 (0.52-1.04) mg/dL Est GFR (CKD-EPI)AfAm >90 (>60 ml/min/1.73 sqM) Est GFR (CKD-EPI)NonAf >90 (>60 ml/min/1.73 sqM) Glucose 97 (74-99) mg/dL Plasma Lactic Acid Joe (0.7-2.0) mmol/L Calcium 8.4 (8.4-10.2) mg/dL Total Bilirubin 0.4 (0.2-1.3) mg/dL AST 27 (14-36) U/L ALT 11 (4-34) U/L Alkaline Phosphatase 85 (38-126) U/L Troponin I (0.000-0.034) ng/mL Total Protein 4.8 L (6.3-8.2) g/dL Albumin 2.4 L (3.5-5.0) g/dL 08/10/23 08/10/23 Range/Units 15:06 15:07 WBC (3.8-10.6) k/uL RBC (3.80-5.40) m/uL Hgb (11.4-16.0) gm/dL Hct (34.0-46.0) % MCV (80.0-100.0) fL MCH (25.0-35.0) pg MCHC (31.0-37.0) g/dL RDW (11.5-15.5) % Plt Count (150-450) k/uL MPV Neutrophils % % Lymphocytes % % Monocytes % % Eosinophils % % Basophils % % Neutrophils # (1.3-7.7) k/uL Lymphocytes # (1.0-4.8) k/uL Monocytes # (0-1.0) k/uL Eosinophils # (0-0.7) k/uL Basophils # (0-0.2) k/uL Macrocytosis PT (10.0-12.5) sec INR (<1.2) APTT (22.0-30.0) sec Sodium (137-145) mmol/L Potassium (3.5-5.1) mmol/L Chloride (98-107) mmol/L Carbon Dioxide (22-30) mmol/L Anion Gap mmol/L BUN (7-17) mg/dL Creatinine (0.52-1.04) mg/dL Est GFR (CKD-EPI)AfAm (>60 ml/min/1.73 sqM) Est GFR (CKD-EPI)NonAf (>60 ml/min/1.73 sqM) Glucose (74-99) mg/dL Plasma Lactic Acid Joe 1.1 (0.7-2.0) mmol/L Calcium (8.4-10.2) mg/dL Total Bilirubin (0.2-1.3) mg/dL AST (14-36) U/L ALT (4-34) U/L Alkaline Phosphatase (38-126) U/L Troponin I <0.012 (0.000-0.034) ng/mL Total Protein (6.3-8.2) g/dL Albumin (3.5-5.0) g/dL - Radiology Data Radiology results: report reviewed, image reviewed Disposition Clinical Impression: Dyspnea Disposition: HOME SELF-CARE Instructions (If sedation given, give patient instructions): Dyspnea (ED), Shortness of Breath (ED) Additional Instructions: Return to the emergency department with any new, worsening, or concerning symptoms. Follow up with your primary care provider in 1-2 days. Is patient prescribed a controlled substance at d/c from ED?: No Referrals: Eros Carlson DO [Primary Care Provider] - 1-2 days Time of Disposition: 16:32
[2023-08-10 16:06] LABS: ALT 11 U/L (4-34); African American GFR (CKD) >90 (>60 ml/min/1.73 sqM); Albumin 2.4 g/dL (3.5-5.0); Anion Gap 5 mmol/L; Blood Urea Nitrogen 10 mg/dL (7-17); Calcium 8.4 mg/dL (8.4-10.2); Carbon Dioxide 21 mmol/L (22-30); Chloride 111 mmol/L (98-107); Glucose 97 mg/dL (74-99); Non-African American GFR(CKD) >90 (>60 ml/min/1.73 sqM); Sodium 137 mmol/L (137-145); Total Bilirubin 0.4 mg/dL (0.2-1.3); Total Protein 4.8 g/dL (6.3-8.2)
[2023-08-10 16:09] LABS: INR 1.1 (<1.2); Prothrombin Time 11.4 sec (10.0-12.5)
[2023-08-10 16:13] LABS: Partial Thromboplastin Time 21.7 sec (22.0-30.0)
[2023-08-10 16:27] LABS: AST 27 U/L (14-36); Alkaline Phosphatase 85 U/L (38-126)
[2023-08-10 16:59] VITALS: BP 109/66; PULSE 76; RESP 18; TEMP 97.9
== END 2023-08-10 16:51 | disposition home or self-care (01) ==
LOC: EC 13:24
DX: R06.00 Dyspnea, unspecified (principal); K21.9 Gastro-esophageal reflux disease without esophagitis; F32.A Depression, unspecified; F41.9 Anxiety disorder, unspecified; F17.200 Nicotine dependence, unspecified, uncomplicated; Z79.899 Other long term (current) drug therapy; Z88.0 Allergy status to penicillin; Z88.1 Allergy status to other antibiotic agents; Z88.8 Allergy status to other drugs, medicaments and biological substances; Z91.041 Radiographic dye allergy status; Z90.49 Acquired absence of other specified parts of digestive tract
CPT/HCPCS: 36415; 93005; 80053; 83605; 84484; 85025; 85610; 85730; 71275; 99285; Q9967

== ENCOUNTER 2023-09-14 17:04 | Observation (INO) | payer MEDICARE ==
--- NOTE | 2023-09-14 17:44 | ED ---
General Adult HPI - General Chief complaint: Syncope Stated complaint: SOB,Fall Time Seen by Provider: 09/14/23 17:10 Source: patient, RN notes reviewed, old records reviewed Mode of arrival: wheelchair Limitations: no limitations - History of Present Illness Initial comments: This is a 63-year-old female who presents to the emergency department with a past medical history significant for esophageal cancer. Patient states she had surgery in July put a mesh in to prevent her intestines from going into her chest according to the patient. Patient states she also has been losing quite a bit of weight since February she thinks it is upwards of 100 pounds at this point. Patient states she has been having chronic diarrhea for quite a while. Patient has seen GI and her primary medical care doctor and they have been unable to figure it out. Patient comes in today complaining of shortness of breath which she states is getting worse. Patient also states she has been dizzy and lightheaded and passed out twice but did not get injured when she fell. This has been occurring since Thursday. - Related Data Home Medications Medication Instructions Recorded Confirmed busPIRone HCL 10 mg PO BID 08/03/16 06/16/23 Metoprolol Tartrate 25 mg PO BID 12/26/16 06/16/23 Omeprazole [PriLOSEC] 20 mg PO BID 06/15/17 06/16/23 Venlafaxine HCl [Effexor] 75 mg PO BID 04/04/19 06/16/23 Losartan [Cozaar] 50 mg PO QAM 11/15/21 06/16/23 Albuterol Nebulized [Ventolin 2.5 mg INHALATION Q6H PRN 06/15/23 06/16/23 Nebulized] Dextroamphetamine/Amphetamine 10 mg PO DAILY PRN 06/15/23 06/16/23 [Dextroamp-Amphetamine 5 mg Tab] Dextroamphetamine/Amphetamine 30 mg PO 0700,1400 06/15/23 06/16/23 [Dextroamp-Amphetamine 5 mg Tab] Multivit-Min/Iron/Folic/Lutein 1 each PO DAILY 06/15/23 06/16/23 [Centrum Silver Women Tablet] Potassium Chloride ER [K-Dur 10] 10 meq PO DAILY 06/15/23 06/16/23 Allergies Allergy/AdvReac Type Severity Reaction Status Date / Time adhesive tape Allergy REDNESS Verified 08/10/23 13:33 AND BLISTERS cefaclor Allergy Rash/Hives Verified 08/10/23 13:33 cephalexin Allergy Rash/Hives Verified 08/10/23 13:33 escitalopram Allergy Rash/Hives Verified 08/10/23 13:33 Penicillins Allergy Rash/Hives/Swelling Verified 08/10/23 13:33 all over povidone-iodine Allergy topical-Bj Verified 08/10/23 13:33 h/Hives Review of Systems ROS Statement: Those systems with pertinent positive or pertinent negative responses have been documented in the HPI. ROS Other: All systems not noted in ROS Statement are negative. Past Medical History Past Medical History: Cancer, GERD/Reflux Additional Past Medical History / Comment(s): COLEMAN'S ESOPHAGUS , esophageal cancer-HAD CHEMO. SORES ON LT FOREARM-HEALED. NARCOLEPSY. CONSTANT VOMITTING. OCCASSIONAL BLE EDEMA History of Any Multi-Drug Resistant Organisms: MRSA Date of last positivie culture/infection: 12/2016 MDRO Source:: PEG TUBE SITE Past Surgical History: Section, Cholecystectomy, Hysterectomy, Orthopedic Surgery, Tubal Ligation Additional Past Surgical History / Comment(s): ,colonoscopy, oopherectomy, 2/3rds ESOPHAGECTOMY, 1/3rd GASTRECTOMY, PEG TUBE INSERTION AND REMOVAL R/T INFE CTION. SCOPE LT KNEE, EGD, CYST REMOVED RT WRIST, C-SECT X 4, Past Anesthesia/Blood Transfusion Reactions: No Reported Reaction Additional Past Anesthesia/Blood Transfusion Reaction / Comment(s): no hx blood transfusion Past Psychological History: Anxiety, Depression Smoking Status: Current every day smoker Past Alcohol Use History: None Reported Past Drug Use History: None Reported - Past Family History Mother Family Medical History: Cancer Sister(s) Family Medical History: Cancer Brother(s) Family Medical History: Cancer General Exam - General Exam Comments Initial Comments: GENERAL: Patient is cachectic. Patient is nontoxic and well-hydrated and is in no acute distress. ENT: Neck is soft and supple. No significant lymphadenopathy is noted. Oropharynx is clear. Moist mucous membranes. Neck has full range of motion without eliciting any pain. EYES: The sclera were anicteric and conjunctiva were pink and moist. Extraocular movements were intact and pupils were equal round and reactive to light. Eyelids were unremarkable. PULMONARY: Unlabored respirations. Good breath sounds bilaterally. No audible rales rhonchi or wheezing was noted. CARDIOVASCULAR: There is a regular rate and rhythm without any murmurs gallops or rubs. ABDOMEN: Soft and nontender with normal bowel sounds. SKIN: Skin is clear with no lesions or rashes and otherwise unremarkable. NEUROLOGIC: Patient is alert and oriented x3. Cranial nerves II through XII are grossly intact. Motor and sensory are also intact. Normal speech, volume and content. Symmetrical smile. MUSCULOSKELETAL: Normal extremities with adequate strength and full range of motion. No lower extremity swelling or edema. No calf tenderness. LYMPHATICS: No significant lymphadenopathy is noted PSYCHIATRIC: Normal psychiatric evaluation. Limitations: no limitations Course Vital Signs 09/14/23 09/14/23 09/14/23 17:09 17:16 18:41 Temperature 97.3 F L Pulse Rate 77 73 69 Respiratory 20 16 20 Rate Blood Pressure 85/53 95/62 118/72 O2 Sat by Pulse 85 L 97 100 Oximetry 09/14/23 19:00 Temperature Pulse Rate 72 Respiratory 18 Rate Blood Pressure 113/82 O2 Sat by Pulse 100 Oximetry Medical Decision Making - Medical Decision Making EKG is of poor quality it shows a sinus rhythm at 73 bpm GA interval 151 QRS of 79 QT interval 394 QTc is 420. Patient's EKG shows no ST segment ovation or depression. Was pt. sent in by a medical professional or institution ([facility] [place], [facility], urgent care, hospital, or usp...) When possible be specific @ -No Did you speak to anyone other than the patient for history (EMS, parent, family, police, friend...)? What history was obtained from this source @ -No Did you review nursing and triage notes (agree or disagree)? Why? @ -I reviewed and agree with nursing and triage notes Were old charts reviewed (outside hosp., previous admission, EMS record, old EKG, old radiological studies, urgent care reports/EKG's, usp records)? Report findings @ -I reviewed prior charts and prior lab work on this patient Differential Diagnosis (chest pain, altered mental status, abdominal pain women, abdominal pain men, vaginal bleeding, weakness, fever, dyspnea, syncope, headache, dizziness, GI bleed, back pain, seizure, CVA, palpatations, mental health, musculoskeletal)? @ -Differential Dyspnea: Coronary syndrome, arrhythmia, tamponade, asthma, COPD, pulmonary embolism, pneumonia, pneumothorax, pulmonary effusion, anaphylaxis, diabetic ketoacidosis, flailed chest, pulmonary contusion, diaphragmatic rupture, anemia, neuromuscular, this is not meant to be an all-inclusive list. Differential Dizziness: Benign paroxysmal positional Vertigo, Menieres disease, otitis media, acoustic neuroma, vertebrobasilar insufficiency, cerebellar stroke, encephalitis, hypovolemic, arrhythmia, coronary artery syndrome, anemia, this is not meant to be an all-inclusive list EKG interpreted by me (3pts min.). @ -As above X-rays interpreted by me (1pt min.). @ -Chest x-ray shows COPD CT interpreted by me (1pt min.). @ -CT scan shows COPD U/S interpreted by me (1pt. min.). @ -None done What testing was considered but not performed or refused? (CT, X-rays, U/S, labs)? Why? @ -None What meds were considered but not given or refused? Why? @ -None Did you discuss the management of the patient with other professionals (professionals i.e. , PA, DIE CUTTER, lab, RT, psych nurse, social service liaison, extension worker, teacher, banking services officer, caser)? Give summary @ -I spoke with [facility] hospitalist they agreed admit the patient to the patient wrote admitting orders Was smoking cessation discussed for >3mins.? @ -No Was critical care preformed (if so, how long)? @ -No Were there social determinants of health that impacted care today? How? (Homelessness, low income, unemployed, alcoholism, drug addiction, transportation, low edu. Level, literacy, decrease access to med. care, prison, rehab)? @ -No Was there de-escalation of care discussed even if they declined (Discuss DNR or withdrawal of care, Hospice)? DNR status @ -No What co-morbidities impacted this encounter? (DM, HTN, Smoking, COPD, CAD, Cancer, CVA, ARF, Chemo, Hep., AIDS, mental health diagnosis, sleep apnea, morbid obesity)? @ -None Was patient admitted / discharged? Hospital course, mention meds given and route, prescriptions, significant lab abnormalities, going to OR and other pertinent info. @ -Patient was given a liter of fluid and she did feel a little bit better from that. Patient's lab work essentially was normal as was the patient's x-ray and CT scan Undiagnosed new problem with uncertain prognosis? @ -No Drug Therapy requiring intensive monitoring for toxicity (Heparin, Nitro, Insu musa, Cardizem)? @ -No Were any procedures done? @ -No Diagnosis/symptom? @ -Syncope Acute, or Chronic, or Acute on Chronic? @ -Acute Uncomplicated (without systemic symptoms) or Complicated (systemic symptoms)? @ -Complicated Side effects of treatment? @ -No Exacerbation, Progression, or Severe Exacerbation? @ -No Poses a threat to life or bodily function? How? (Chest pain, [place], DC, pneumonia, PE, COPD, DKA, ARF, appy, cholecystitis, CVA, Diverticulitis, Homicidal, Suicidal, threat to staff... and all critical care pts) @ -Yes this could be secondary to arrhythmias which can lead to possible Diagnosis/symptom? @ -Dyspnea Acute, or Chronic, or Acute on Chronic? @ -Acute Uncomplicated (without systemic symptoms) or Complicated (systemic symptoms)? @ -Complicated Side effects of treatment? @ -None Exacerbation, Progression, or Severe Exacerbation] @ -No Poses a threat to life or bodily function? @ -No Diagnosis/symptom? @ -Diarrhea Acute, or Chronic, or Acute on Chronic? @ -Chronic Uncomplicated (without systemic symptoms) or Complicated (systemic symptoms)? @ -Complicated Side effects of treatment? @ -None Exacerbation, Progression, or Severe Exacerbation] @ -No Poses a threat to life or bodily function? @ -No - Lab Data Result diagrams: 09/14/23 17:27 09/14/23 17:27 Lab Results 09/14/23 09/14/23 09/14/23 Range/Units 17:27 17:27 17:27 WBC 9.1 (3.8-10.6) k/uL RBC 4.75 (3.80-5.40) m/uL Hgb 15.8 (11.4-16.0) gm/dL Hct 48.9 H (34.0-46.0) % MCV 102.8 H (80.0-100.0) fL MCH 33.3 (25.0-35.0) pg MCHC 32.4 (31.0-37.0) g/dL RDW 14.2 (11.5-15.5) % Plt Count 213 (150-450) k/uL MPV 10.0 Neutrophils % 78 % Lymphocytes % 13 % Monocytes % 4 % Eosinophils % 2 % Basophils % 1 % Neutrophils # 7.2 (1.3-7.7) k/uL Lymphocytes # 1.1 (1.0-4.8) k/uL Monocytes # 0.4 (0-1.0) k/uL Eosinophils # 0.2 (0-0.7) k/uL Basophils # 0.1 (0-0.2) k/uL Macrocytosis Slight PT 10.7 (10.0-12.5) sec INR 1.0 (<1.2) APTT 22.2 (22.0-30.0) sec D-Dimer 0.81 H (<0.60) mg/L FEU Sodium 136 L (137-145) mmol/L Potassium 3.9 (3.5-5.1) mmol/L Chloride 110 H (98-107) mmol/L Carbon Dioxide 15 L (22-30) mmol/L Anion Gap 11 mmol/L BUN 17 (7-17) mg/dL Creatinine 0.76 (0.52-1.04) mg/dL Est GFR (CKD-EPI)AfAm >90 (>60 ml/min/1.73 sqM) Est GFR (CKD-EPI)NonAf 84 (>60 ml/min/1.73 sqM) Glucose 113 H (74-99) mg/dL Plasma Lactic Acid Joe (0.7-2.0) mmol/L Calcium 9.7 (8.4-10.2) mg/dL Magnesium 1.9 (1.6-2.3) mg/dL Total Bilirubin 0.8 (0.2-1.3) mg/dL AST 45 H (14-36) U/L ALT 22 (4-34) U/L Alkaline Phosphatase 109 (38-126) U/L Troponin I (0.000-0.034) ng/mL NT-Pro-B Natriuret Pep 885 pg/mL Total Protein 6.2 L (6.3-8.2) g/dL Albumin 3.5 (3.5-5.0) g/dL 09/14/23 09/14/23 Range/Units 17:27 17:27 WBC (3.8-10.6) k/uL RBC (3.80-5.40) m/uL Hgb (11.4-16.0) gm/dL Hct (34.0-46.0) % MCV (80.0-100.0) fL MCH (25.0-35.0) pg MCHC (31.0-37.0) g/dL RDW (11.5-15.5) % Plt Count (150-450) k/uL MPV Neutrophils % % Lymphocytes % % Monocytes % % Eosinophils % % Basophils % % Neutrophils # (1.3-7.7) k/uL Lymphocytes # (1.0-4.8) k/uL Monocytes # (0-1.0) k/uL Eosinophils # (0-0.7) k/uL Basophils # (0-0.2) k/uL Macrocytosis PT (10.0-12.5) sec INR (<1.2) APTT (22.0-30.0) sec D-Dimer (<0.60) mg/L FEU Sodium (137-145) mmol/L Potassium (3.5-5.1) mmol/L Chloride (98-107) mmol/L Carbon Dioxide (22-30) mmol/L Anion Gap mmol/L BUN (7-17) mg/dL Creatinine (0.52-1.04) mg/dL Est GFR (CKD-EPI)AfAm (>60 ml/min/1.73 sqM) Est GFR (CKD-EPI)NonAf (>60 ml/min/1.73 sqM) Glucose (74-99) mg/dL Plasma Lactic Acid Joe 2.0 (0.7-2.0) mmol/L Calcium (8.4-10.2) mg/dL Magnesium (1.6-2.3) mg/dL Total Bilirubin (0.2-1.3) mg/dL AST (14-36) U/L ALT (4-34) U/L Alkaline Phosphatase (38-126) U/L Troponin I 0.033 (0.000-0.034) ng/mL NT-Pro-B Natriuret Pep pg/mL Total Protein (6.3-8.2) g/dL Albumin (3.5-5.0) g/dL Disposition Clinical Impression: Chronic diarrhea, Dyspnea, Syncope and collapse Disposition: ADMITTED IP TO THIS HOSP Referrals: Eros Carlson DO [Primary Care Provider] - 1-2 days Time of Disposition: 20:22
[2023-09-14] MEDS: SODIUM CHLORIDE 0.9% 1,000 ML IV STA (17:58)
[2023-09-14 18:08] LABS: ALT 22 U/L (4-34); African American GFR (CKD) >90 (>60 ml/min/1.73 sqM); Albumin 3.5 g/dL (3.5-5.0); Anion Gap 11 mmol/L; Blood Urea Nitrogen 17 mg/dL (7-17); Calcium 9.7 mg/dL (8.4-10.2); Carbon Dioxide 15 mmol/L (22-30); Chloride 110 mmol/L (98-107); Glucose 113 mg/dL (74-99); Non-African American GFR(CKD) 84 (>60 ml/min/1.73 sqM); Sodium 136 mmol/L (137-145); Total Bilirubin 0.8 mg/dL (0.2-1.3); Total Protein 6.2 g/dL (6.3-8.2)
[2023-09-14 18:09] LABS: AST 45 U/L (14-36); Magnesium 1.9 mg/dL (1.6-2.3); Potassium 3.9 mmol/L (3.5-5.1)
[2023-09-14 18:10] LABS: Alkaline Phosphatase 109 U/L (38-126)
--- NOTE | 2023-09-14 18:14 | XR ---
EXAMINATION TYPE: XR chest 2V DATE OF EXAM: 09/14/2023 6:10 PM CLINICAL INDICATION:Female, 63 years old with history of difficulty breathing; PHH COMPARISON: None TECHNIQUE: XR chest 2V Frontal and lateral views of the chest. FINDINGS: Lungs/Pleura: There is flattening of the diaphragm with increased lucency of the lungs. No evidence o f pneumothorax, pleural effusion or focal consolidation. Pulmonary vascularity: Unremarkable. Heart/mediastinum: Cardiomediastinal silhouette is unremarkable. Musculoskeletal: No acute osseous pathology. IMPRESSION: 1. No acute cardiopulmonary disease process. 2. COPD changes.
[2023-09-14 18:15] LABS: Basophils # (A) 0.1 k/uL (0-0.2); Basophils % (A) 1 %; Eosinophils # (A) 0.2 k/uL (0-0.7); Eosinophils % (A) 2 %; HCT 48.9 % (34.0-46.0); HGB 15.8 gm/dL (11.4-16.0); Lymphocytes # (A) 1.1 k/uL (1.0-4.8); Lymphocytes % (A) 13 %; MCH 33.3 pg (25.0-35.0); MCHC 32.4 g/dL (31.0-37.0); MCV 102.8 fL (80.0-100.0); Macrocytosis Slight; Monocytes # (A) 0.4 k/uL (0-1.0); Monocytes % (A) 4 %; Neutrophils # (A) 7.2 k/uL (1.3-7.7); Neutrophils % (A) 78 %; Platelet Count 213 k/uL (150-450); RBC 4.75 m/uL (3.80-5.40); RDW 14.2 % (11.5-15.5); WBC 9.1 k/uL (3.8-10.6)
[2023-09-14 18:16] LABS: NT-Pro-B-Type Natriuretic Pept 885 pg/mL
[2023-09-14 18:34] LABS: Partial Thromboplastin Time 22.2 sec (22.0-30.0); Prothrombin Time 10.7 sec (10.0-12.5)
--- NOTE | 2023-09-14 20:15 | CT ---
EXAMINATION TYPE: CT chest angio for PE CT DLP: 198.6 mGycm, Automated exposure control for dose reduction was used. DATE OF EXAM: 09/14/2023 7:56 PM COMPARISON: Chest radiograph from same day. 08/10/2023 CLINICAL INDICATION:Female, 63 years old with history of Elevated D-dimer, dyspnea; Elevated D-dimer, Dyspnea. TECHNIQUE/CONTRAST: CTA scan of the thorax is performed with IV Contrast, patient injected with 100ml mL of Isovue 370, M IP images are created and reviewed these are created on a separate workstation.. FINDINGS: Pulmonary Artery: There is no evidence for a filling defect within the pulmonary vasculature to sugge st acute pulmonary embolism. The pulmonary artery is of normal size. Lungs/Pleura: No evidence of focal consolidation, pleural effusion or pneumothorax. Stable appearance of the left hemidiaphragm. Airway: Large airways are patent. Heart: Heart is within normal limits for size. Vasculature: No evidence of aortic aneurysm. Mediastinum: No gross evidence of adenopathy. Esophagectomy with gastric pull-through. Musculoskeletal: Moderate degenerative disc disease changes are present throughout the thoracolumbar spine. Remote injury to the right proximal humerus with good osseous fusion. Soft Tissues: Unremarkable. Lower neck: No significant findings. Upper Abdomen: Right renal cortical 5 mm calcification. The gallbladder surgically absent. IMPRESSION: 1. No evidence of pulmonary embolism. 2. Postsurgical changes suspected with esophagectomy gastric pull-through.
[2023-09-14] MEDS: SODIUM CHLORIDE 0.9% 1,000 ML IV ONE (21:20)
[2023-09-15] MEDS ORDERED: ONDANSETRON 4 MG TAB PO PRN (11:06)
--- NOTE | 2023-09-15 11:17 | P.HPIM ---
History of Present Illness Patient is a pleasant 63-year-old female came in after syncopal episode without any seizure-like activity loss of bowel or bladder continence and episode lasted for few seconds and patient is not doing anything yesterday when he had she had an episode and patient had a significant weight loss of 100 pounds since last February patient has chronic diarrhea which she is being evaluated outpatient by a GI specialist and patient underwent colonoscopy as well. Patient any fever or chills at this time patient is still having diarrhea patient is hypotensive. Patient is on losartan 50 mg at home along with metoprolol 25 twice daily. I do not have any orthostatic vitals available at this time. Patient had history of esophageal cancer had a partial esophagectomy and in month of July patient appears to have had hernia which was emergently repaired from patient's history. Patient does have elevated MCV of 102 patient does take B12 supplementation. Patient was complaining of generalized weakness lately REVIEW OF SYSTEMS: CONSTITUTIONAL: No fever, no malaise, no fatigue. HEENT: No recent visual problems or hearing problems. Denied any sore throat. CARDIOVASCULAR: No chest pain, orthopnea, PND, no palpitations, PULMONARY: No shortness of breath, no cough, no hemoptysis. GASTROINTESTINAL: No diarrhea, no nausea, no vomiting, no abdominal pain. NEUROLOGICAL: No headaches, no weakness, no numbness. HEMATOLOGICAL: Denies any bleeding or petechiae. GENITOURINARY: Denies any burning micturition, frequency, or urgency. MUSCULOSKELETAL/RHEUMATOLOGICAL: Denies any joint pain, swelling, or any muscle pain. ENDOCRINE: Denies any polyuria or polydipsia. The rest of the 14-point review of systems is negative. PHYSICAL EXAMINATION: GENERAL: The patient is alert and oriented x3, not in any acute distress. Thin built cachectic female HEENT: Pupils are round and equally reacting to light. EOMI. No scleral icterus. No conjunctival pallor. Normocephalic, atraumatic. No pharyngeal erythema. No thyromegaly. CARDIOVASCULAR: S1 and S2 present. No murmurs, rubs, or gallops. PULMONARY: Chest is clear to auscultation, no wheezing or crackles. ABDOMEN: Soft, nontender, nondistended, normoactive bowel sounds. No palpable organomegaly. MUSCULOSKELETAL: No joint swelling or deformity. EXTREMITIES: No cyanosis, clubbing, or pedal edema. NEUROLOGICAL: Gross neurological examination did not reveal any focal deficits. SKIN: No rashes. Assessment and plan -Syncope probably secondary to hypotension since patient lost significant weight recently patient did not require any losartan anymore we will discontinue losartan patient will be switched to lactated Ringer's because of hyperchloremic metabolic acidosis. Will also obtain an echocardiogram to evaluate for any valvular heart disease that is contributing to her syncopal episode. Will also obtain a BNP. -Moderate malnutrition, cachexia elevated MCV will obtain B12 and folate levels patient will continue her B12 supplementation -Chronic diarrhea etiology is not clear patient is being evaluated as an outpatient for this patient will continue further evaluation by gastroenterology will continue with supportive care magnesium supplementation and powdered potassium. Chronic diarrhea may be related to radiation therapy if she ever received it -Gastroesophageal reflux disease -Esophageal cancer in remission was treated for that -Nicotine use: Counseling was provided patient was complaining of some shortness of breath may have COPD -COPD without any acute exacerbation -Generalized weakness: Physical therapy and Occupational Therapy evaluation DVT prophylaxis: Heparin subcutaneous Past Medical History Past Medical History: Cancer, GERD/Reflux Additional Past Medical History / Comment(s): COLEMAN'S ESOPHAGUS , esophageal cancer-HAD CHEMO. SORES ON LT FOREARM-HEALED. NARCOLEPSY. CONSTANT VOMITTING. OCCASSIONAL BLE EDEMA History of Any Multi-Drug Resistant Organisms: MRSA Date of last positivie culture/infection: 12/2016 MDRO Source:: PEG TUBE SITE Past Surgical History: Section, Cholecystectomy, Hysterectomy, Orthopedic Surgery, Tubal Ligation Additional Past Surgical History / Comment(s): ,colonoscopy, oopherectomy, 2/3rds ESOPHAGECTOMY, 1/3rd GASTRECTOMY, PEG TUBE INSERTION AND REMOVAL R/T INFECTION. SCOPE LT KNEE, EGD, CYST REMOVED RT WRIST, C-SECT X 4, Past Anesthesia/Blood Transfusion Reactions: No Reported Reaction Additional Past Anesthesia/Blood Transfusion Reaction / Comment(s): no hx blood transfusion Past Psychological History: Anxiety, Depression Smoking Status: Current every day smoker Past Alcohol Use History: None Reported Past Drug Use History: None Reported - Past Family History Mother Family Medical History: Cancer Sister(s) Family Medical History: Cancer Brother(s) Family Medical History: Cancer Medications and Allergies Home Medications Medication Instructions Recorded Confirmed Type busPIRone HCL 10 mg PO BID 08/03/16 09/14/23 History Metoprolol Tartrate 25 mg PO BID 12/26/16 09/14/23 History Omeprazole [PriLOSEC] 20 mg PO BID 06/15/17 09/14/23 History Venlafaxine HCl [Effexor] 75 mg PO BID 04/04/19 09/14/23 History Losartan [Cozaar] 50 mg PO DAILY 11/15/21 09/14/23 History Cholecalciferol [Vitamin D3 (25 25 mcg PO DAILY 09/14/23 09/14/23 History Mcg = 1000 Iu)] Cyanocobalamin (Vitamin B-12) 1,000 mcg PO DAILY 09/14/23 09/14/23 History [Vitamin B-12] Dextroamphetamine/Amphetamine 10 mg PO DAILY@1700 09/14/23 09/14/23 History [Adderall] Dextroamphetamine/Amphetamine 30 mg PO BID@0700,1200 09/14/23 09/14/23 History [Adderall] Magnesium Oxide [Magox 400] 400 mg PO DAILY 09/14/23 09/14/23 History Ondansetron [Zofran] 4 mg PO TID PRN 09/14/23 09/14/23 History Potassium Chloride [Klor-Con 20 20 meq PO DAILY 09/14/23 09/14/23 History Packets] methocarbamoL [Robaxin-750] 750 mg PO TID PRN 09/14/23 09/14/23 History Allergies Allergy/AdvReac Type Severity Reaction Status Date / Time adhesive tape Allergy REDNESS Verified 09/14/23 20:45 AND BLISTERS cefaclor Allergy Rash/Hives Verified 09/14/23 20:45 cephalexin Allergy Rash/Hives Verified 09/14/23 20:45 escitalopram Allergy Rash/Hives Verified 09/14/23 20:45 Penicillins Allergy Rash/Hives/Swelling Verified 09/14/23 20:45 all over povidone-iodine Allergy topical-Bj Verified 09/14/23 20:45 h/Hives Physical Exam Vitals: Vital Signs Temp Pulse Resp BP Pulse Ox 09/15/23 08:00 81 17 102/71 97 09/15/23 06:00 75 18 113/80 98 09/15/23 03:00 76 20 99 09/15/23 02:32 76 19 75/69 09/14/23 23:00 78 19 108/89 09/14/23 21:20 73 16 118/85 100 09/14/23 19:00 72 18 113/82 100 09/14/23 18:41 69 20 118/72 100 09/14/23 17:16 73 16 95/62 97 09/14/23 17:09 97.3 F L 77 20 85/53 85 L Intake and Output 09/14/23 09/15/23 09/15/23 22:59 06:59 14:59 Other: Weight 47.627 kg Results CBC & Chem 7: 09/14/23 17:27 09/14/23 17:27 Labs: Abnormal Lab Results - Last 24 Hours (Table) 09/14/23 09/14/23 09/14/23 Range/Units 17:27 17:27 17:27 Hct 48.9 H (34.0-46.0) % MCV 102.8 H (80.0-100.0) fL D-Dimer 0.81 H (<0.60) mg/L FEU Sodium 136 L (137-145) mmol/L Chloride 110 H (98-107) mmol/L Carbon Dioxide 15 L (22-30) mmol/L Glucose 113 H (74-99) mg/dL AST 45 H (14-36) U/L Total Protein 6.2 L (6.3-8.2) g/dL
[2023-09-15] MEDS: LACTATED RINGERS 1,000 ML IV SCH (12:31)
[2023-09-15] MEDS: busPIRone HCl 10 MG TAB PO SCH (12:31)
[2023-09-15] MEDS: MAGNESIUM OXIDE 400 MG TAB PO SCH (12:31)
[2023-09-15] MEDS: POTASSIUM CHLORIDE ER 20 MEQ TAB.ER PO SCH (12:31)
--- NOTE | 2023-09-15 12:40 | CA ---
Transthoracic Echo Report Name: Disha Dobson Age: 63 Gender: F : 1960 Exam Date: 09/15/2023 11:49 Exam Location: [facility] Ht (in): 66 Wt (lb): 105 Ordering Physician: Maribel Hyatt MD Attending/Referring Phys: Mimeograph Operator Bonnie Celestin, SAMMY Procedure CPT: Indications: Syncope Cardiac Hx: Technical Quality: Fair Contrast 1: Total Dose (mL): Contrast 2: Total Dose (mL): MEASUREMENTS (Male / Female) Normal Values 2D ECHO LV Diastolic Diameter PLAX 3.5 cm 4.2 - 5.9 / 3.9 - 5.3 cm LV Systolic Diameter PLAX 1.9 cm IVS Diastolic Thickness 0.7 cm 0.6 - 1.0 / 0.6 - 0.9 cm LVPW Diastolic Thickness 0.8 cm 0.6 - 1.0 / 0.6 - 0.9 cm LV Relative Wall Thickness 0.4 RV Internal Dim ED PLAX 1.7 cm M-MODE Aortic Root Diameter MM 3.1 cm DOPPLER Mitral E Point Velocity 74.5 cm/s Mitral A Point Velocity 72.9 cm/s Mitral E to A Ratio 1.0 MV Deceleration Time 235.6 ms MV E' Velocity 8.8 cm/s Mitral E to MV E' Ratio 8.5 FINDINGS Left Ventricle Left ventricular ejection fraction is estimated at 60-65 %. Small left ventricular cavity. Left ventricular wall thickness normal. Normal left ventricular wall motion. Right Ventricle Normal right ventricular size. Unable to estimate the right ventricular systolic pressure. Right Atrium Right atrium not well visualized. Left Atrium Normal left atrial size. Mitral Valve Structurally normal mitral valve. No mitral stenosis, regurgitation or prolapse. Aortic Valve Trileaflet aortic valve. No aortic valve stenosis or regurgitation. Tricuspid Valve Structurally normal tricuspid valve. No tricuspid stenosis, regurgitation or prolapse. Pulmonic Valve Structurally normal pulmonic valve. No pulmonic regurgitation. Pericardium No pericardial effusion. Aorta Normal size aortic root and proximal ascending aorta. CONCLUSIONS Technically difficult study for interpretation Normal LV systolic function Previewed by: Dr. Yunior Mccarthy MD (Electronically Signed) Final Date: 15 September 2023 12:40
[2023-09-15] MEDS: Dextroamphetamine/Amphetamine [Adderall] 30 MG Tablet PO SCH (12:58)
[2023-09-15] MEDS: Dextroamphetamine/Amphetamine [Adderall] 10 MG Tablet PO SCH (16:27)
[2023-09-15] MEDS: VENLAFAXINE HCL 75 MG TAB PO SCH (20:35)
[2023-09-15] MEDS: METOPROLOL TARTRATE 25 MG TAB PO SCH (20:35)
[2023-09-15] MEDS: HEPARIN SODIUM,PORCINE 5,000 UNIT/ML 1 ML VIAL SQ SCH (20:35)
[2023-09-15] MEDS: DIPHENOX-ATROP 2.5-0.025 MG 1 EACH TAB PO PRN (20:48)
[2023-09-15] MEDS: methocarbamoL 750 MG TAB PO PRN (21:09)
[2023-09-16] MEDS: PANTOPRAZOLE 40 MG TABLET PO SCH (09:38)
--- NOTE | 2023-09-16 23:43 | P.PN ---
Subjective Progress Note Date: 09/16/23 Patient is a pleasant 63-year-old female came in after syncopal episode without any seizure-like activity loss of bowel or bladder continence and episode lasted for few seconds and patient is not doing anything yesterday when he had she had an episode and patient had a significant weight loss of 100 pounds since last February patient has chronic diarrhea which she is being evaluated outpatient by a GI specialist and patient underwent colonoscopy as well. Patient any fever or chills at this time patient is still having diarrhea patient is hypotensive. Patient is on losartan 50 mg at home along with metoprolol 25 twice daily. I do not have any orthostatic vitals available at this time. Patient had history of esophageal cancer had a partial esophagectomy and in month of July patient appears to have had hernia which was emergently repaired from patient's history. Patient does have elevated MCV of 102 patient does take B12 supplementation. Patient was complaining of generalized weakness lately 09/16/2023 Patient is evaluated in follow up. Continues to report loose/liquid stools multiple times per day. This has been ongoing since February of last year. Patient has had extensive work up outpatient including PET scan back in Apr which reveals no new malignancy. Patient had colonoscopy with Dr. Laurent with no malignancy noted. Had stool cultures done back in july which was positive for stool lactoferrin. Patient does not appear to have C.Dif testing in the symptoms and this will be ruled out. She has felt less dizzy or and lightheaded however has not been able to ambulate without feeling like she is going to pass out and PT has recommended 24/7 supervision. Family at this time is not able to take care of her at home. Orthostatics were attempted and patient was unable to tolerate standing for a blood pressure. She is scheduled for an outpatient PET scan in the AM at 10 am as part of her outpatient work up and monitoring with oncology due to the continued diarrhea. She has had extensive weightloss and her blood pressure has now been in the 90-100s and losartan has been stopped. Plan of care was discussed in extent with family at the bedside and all concerns were addressed. Due to the inability to tolerate standing and ambulation with concern for presyncope discharge will be placed on hold. REVIEW OF SYSTEMS: CONSTITUTIONAL: No fever, no malaise, no fatigue. HEENT: No recent visual problems or hearing problems. Denied any sore throat. CARDIOVASCULAR: No chest pain, orthopnea, PND, no palpitations, PULMONARY: No shortness of breath, no cough, no hemoptysis. GASTROINTESTINAL: Reports diarrhea, no nausea, no vomiting, no abdominal pain. NEUROLOGICAL: No headaches, no weakness, no numbness. PHYSICAL EXAMINATION: GENERAL: The patient is alert and oriented x3, not in any acute distress. Thin built cachectic female HEENT: Pupils are round and equally reacting to light. EOMI. No scleral icterus. No conjunctival pallor. Normocephalic, atraumatic. No pharyngeal erythema. No thyromegaly. CARDIOVASCULAR: S1 and S2 present. No murmurs, rubs, or gallops. PULMONARY: Chest is clear to auscultation, no wheezing or crackles. ABDOMEN: Soft, nontender, nondistended, normoactive bowel sounds. No palpable organomegaly. MUSCULOSKELETAL: No joint swelling or deformity. EXTREMITIES: No cyanosis, clubbing, or pedal edema. NEUROLOGICAL: Gross neurological examination did not reveal any focal deficits. SKIN: No rashes. Assessment and plan -Syncope probably secondary to hypotension since patient lost significant weight recently losartan has been discontinued and echocardiogram reveals normal LV function and no valvular abnormalities. Check orthostatics. -Moderate malnutrition, cachexia elevated MCV, vitamin B12 elevated greater than 3600 patient does not require Vitamin B12 supplement at this time. -Chronic diarrhea etiology is not clear patient is being evaluated as an outpatient for this patient will continue further evaluation by gastroenterology will continue with supportive care magnesium supplementation and powdered potassium. Check C.Dif. -Gastroesophageal reflux disease -Esophageal cancer in remission was treated for that -Nicotine use: Counseling was provided patient was complaining of some shortness of breath may have COPD -COPD without any acute exacerbation -Generalized weakness: Physical therapy and Occupational Therapy evaluation DVT prophylaxis: Heparin subcutaneous The impression and plan of care has been dictated by Latrice Kumari, Nurse Practitioner as directed. Dr. Edmar MD I have performed a history and physical examination and medical decision making of this patient, discussed the same with the dictator, and agree with the dictators assessment and plan as written, documented as a scribe. Based on total visit time, I have performed more than 50% of this visit. Objective - Vital Signs Vital signs: Vital Signs Temp 98.4 F 03/13/24 18:57 Pulse 85 09/16/23 18:57 Resp 16 09/16/23 18:57 BP 116/76 09/16/23 18:57 Pulse Ox 97 09/16/23 18:57 FiO2 Intake & Output 09/16/23 09/16/23 09/17/23 06:59 18:59 06:59 Intake Total 240 Balance 240 Weight 58 kg 45.5 kg Intake: Oral 240 Other: Voiding Method Toilet Toilet Toilet # Voids 3 3 - Labs CBC & Chem 7: 09/14/23 17:27 09/14/23 17:27 Assessment and Plan Time with Patient: Less than 30
[2023-09-17 09:07] LABS: Basophils # (A) 0.05 X 10*3/uL (0.00-0.10); Eosinophils # (A) 0.21 X 10*3/uL (0.04-0.35); Eosinophils % (A) 4.2 %; HCT 42.5 % (37.2-46.3); Lymphocytes # (A) 2.04 X 10*3/uL (0.90-5.00); Lymphocytes % (A) 40.9 %; MCH 32.3 pg (27.0-32.0); MCHC 32.9 g/dL (32.0-37.0); MCV 98.2 FL (80.0-97.0); Mean Platelet Volume 12.3 FL (9.5-12.2); Monocytes # (A) 0.65 X 10*3/uL (0.20-1.00); NRBC Per 100 WBC 0 X 10*3/uL (0.00-0.01); Neutrophils # (A) 2.03 X 10*3/uL (1.80-7.70); Neutrophils % (A) 40.7 %; Platelet Count 155 X 10*3/uL (140-440); RBC 4.33 X 10*6/uL (4.10-5.20); RDW 14.5 % (11.5-14.5); WBC 4.99 X 10*3/uL (4.50-10.00)
[2023-09-17 09:15] LABS: BUN/Creat Ratio 17.62 Ratio (12.00-20.00); Blood Urea Nitrogen 14.1 mg/dL (9.0-27.0); Calcium 9.2 mg/dL (8.7-10.3); Carbon Dioxide 17.9 mmol/L (21.6-31.8); Chloride 110 mmol/L (96-109); Glucose 79 mg/dL (70-110); Magnesium 1.9 mg/dL (1.5-2.4); Sodium 137 mmol/L (135-145)
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
[2023-09-17] MEDS: CHOLESTYRAMINE (WITH SUGAR) 4 GM PACKET PO SCH (17:46)
[2023-09-17] MEDS: METOPROLOL TARTRATE 12.5 MG TAB PO SCH (20:08)
[2023-09-17] MEDS: LOPERAMIDE 2 MG CAP PO PRN (20:42)
[2023-09-18 08:34] VITALS: BP 96/66; RESP 18; TEMP 97.6
[2023-09-18] MEDS: LOPERAMIDE 2 MG CAP PO SCH (08:46)
--- NOTE | 2023-09-18 10:28 | XR ---
EXAMINATION TYPE: XR chest 2V DATE OF EXAM: 09/18/2023 COMPARISON: 09/14/2023. HISTORY: Shortness of breath. TECHNIQUE: Frontal and lateral views of the chest are obtained. FINDINGS: The lungs are hyperinflated. Blunting of the costophrenic angles bilaterally is unchanged and may relate to small pleural effusions or thickening. IMPRESSION: No significant change.
[2023-09-18 10:31] VITALS: PULSE 116
[2023-09-18 11:14] VITALS: BMI 17.6
[2023-09-18] MEDS: LIPASE 20,000/PROTEASE 63,000/AMYLASE 84,000 PO SCH (12:38)
--- NOTE | 2023-09-18 12:43 | P.PN ---
Progress Note - Text Progress Note Date: 09/18/23 Patient will need oxygen 2 L via nasal cannula on discharge to manage COPD
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
[2023-09-18 23:47] LABS: Cryptosporidium Antigen Negative (Negative)
--- NOTE | 2023-09-20 13:21 | P.DS ---
Providers Date of admission: 09/14/23 20:25 Expected date of discharge: 09/18/23 Attending physician: Bernice Osman Consults: 09/17/23 10:40 Consult Physician Routine Consulting Provider: Rachana Laurent Consult Reason/Comments: Chronic diarrhea Do you want consulting provider notified?: Yes Primary care physician: Eros Carlson Hospital Course: Final diagnosis -Syncope secondary to hypotension with significant weight loss as well -Orthostatic hypotension -Moderate malnutrition, cachexia elevated MCV, vitamin B12 elevated greater than 3600, BM is 17.6 -Chronic diarrhea etiology is not clear patient is being evaluated as an outpatient for this patient will continue further evaluation by gastroenterology will continue with supportive -C. difficile ruled out -Gastroesophageal reflux disease -Esophageal cancer in remission was treated for that -Nicotine use: Counseling was provided -Acute hypoxic respiratory failure secondary to COPD -COPD without any acute exacerbation -Generalized weakness -DVT prophylaxis Discharge disposition Patient is being discharged in a stable condition with guarded prognosis to home. Patient will follow-up with Dr. Carlson in the outpatient setting upon discharge. Patient is to continue with current medications and close outpatient follow-up with GI Dr. Laurent as scheduled. Total time taken is greater than 35 minutes. Hospital course This is a 63-year-old female who was recently admitted with generalized weakness and syncopal episode being closely monitored. Syncopal likely related to orthostatic hypotension. Patient has undergone significant weight loss most recently having some increased weakness likely contributed to some of the symptomatic changes regarding her blood pressure and medications. Medications have been adjusted and recommend close outpatient follow-up with primary care provider. Patient with chronic diarrhea evaluated by GI started on Imodium and Questran recommending outpatient follow-up. Patient was evaluated by physical therapy and did well although had some continued dyspnea and shortness of breath with minimal exertion. Patient was evaluated for home oxygen and qualifies and will continue with 2 L nasal cannula secondary to managing her COPD. Tobacco cessation has been discussed. Patient to follow-up with consultations outpatient. Please refer to consultation notes for further HPI. Currently no reports of chest pain, shortness of breath, or palpitations. Patient is afebrile. No reports of nausea or vomiting and patient is tolerating diet. Patient will be discharged home today. Guarded prognosis and high risk for readmissions given patient's significant comorbidities and continued weakness with poor social support. Physical exam: Gen: This is a 63-year-old female who is awake, alert and oriented x 3, well- developed, thin built, elderly appearing HEENT: Head is atraumatic, normocephalic. Pupils equal, round. Sclerae is anicteric. NECK: Supple. No JVD. No lymphadenopathy. No thyromegaly. LUNGS: Diminished breath sounds bilaterally otherwise clear to auscultation. No wheezes or rhonchi. No intercostal retractions. HEART: Regular rate and rhythm. No murmur. ABDOMEN: Soft. Bowel sounds are present. No masses. No tenderness. EXTREMITIES: No pedal edema. No calf tenderness. NEUROLOGICAL: Patient is awake, alert and oriented x3. Cranial nerves 2 through 12 are grossly intact. Please refer to medication reconciliation sheet for a list of medications. The impression and plan of care has been dictated by Bel Navarro, Nurse Practitioner as directed. Dr. Edmar MD I have performed a history and examination and MDM of this patient, discussed the same with the dictator, and agree with the dictator's assessment and plan as written ,documented as a scribe. Based on total visit time, I have performed more than 50% of the visit. Patient Condition at Discharge: Fair Plan - Discharge Summary Discharge Rx Participant: No New Discharge Prescriptions: New Metoprolol Tartrate [Lopressor] 12.5 mg PO BID #60 tab Cholestyramine (with Sugar) [Questran] 4 gm PO BID #20 packet Loperamide [Imodium] 4 mg PO QID 30 Days #240 cap Lipase/Protease/Amylase [Amy Dr 20,000 Unit Capsule] 1 each PO AC-TID #90 cap Continue busPIRone HCL 10 mg PO BID Omeprazole [PriLOSEC] 20 mg PO BID Venlafaxine HCl [Effexor] 75 mg PO BID Dextroamphetamine/Amphetamine [Adderall] 10 mg PO DAILY@1700 Magnesium Oxide [Magox 400] 400 mg PO DAILY Ondansetron [Zofran] 4 mg PO TID PRN PRN Reason: Nausea Potassium Chloride [Klor-Con 20 Packets] 20 meq PO DAILY Dextroamphetamine/Amphetamine [Adderall] 30 mg PO BID@0700,1200 methocarbamoL [Robaxin-750] 750 mg PO TID PRN PRN Reason: Muscle Pain Cyanocobalamin (Vitamin B-12) [Vitamin B-12] 1,000 mcg PO DAILY Cholecalciferol [Vitamin D3 (25 Mcg = 1000 Iu)] 25 mcg PO DAILY Discontinued Metoprolol Tartrate 25 mg PO BID Losartan [Cozaar] 50 mg PO DAILY Discharge Medication List busPIRone HCL 10 mg PO BID 08/03/16 [History] Omeprazole [PriLOSEC] 20 mg PO BID 06/15/17 [History] Venlafaxine HCl [Effexor] 75 mg PO BID 04/04/19 [History] Cholecalciferol [Vitamin D3 (25 Mcg = 1000 Iu)] 25 mcg PO DAILY 09/14/23 [History] Cyanocobalamin (Vitamin B-12) [Vitamin B-12] 1,000 mcg PO DAILY 09/14/23 [History] Dextroamphetamine/Amphetamine [Adderall] 10 mg PO DAILY@1700 09/14/23 [History] Dextroamphetamine/Amphetamine [Adderall] 30 mg PO BID@0700,1200 09/14/23 [History] Magnesium Oxide [Magox 400] 400 mg PO DAILY 09/14/23 [History] Ondansetron [Zofran] 4 mg PO TID PRN 09/14/23 [History] Potassium Chloride [Klor-Con 20 Packets] 20 meq PO DAILY 09/14/23 [History] methocarbamoL [Robaxin-750] 750 mg PO TID PRN 09/14/23 [History] Cholestyramine (with Sugar) [Questran] 4 gm PO BID #20 packet 09/16/23 [Rx] Lipase/Protease/Amylase [Zenpep Dr 20,000 Unit Capsule] 1 each PO AC-TID #90 cap 09/18/23 [Rx] Loperamide [Imodium] 4 mg PO QID 30 Days #240 cap 09/18/23 [Rx] Metoprolol Tartrate [Lopressor] 12.5 mg PO BID #60 tab 09/18/23 [Rx] Follow up Appointment(s)/Referral(s): [facility] [NON-STAFF] - 1 Week Rachana Laurent MD [STAFF PHYSICIAN] - 10/07/23 3:45 pm () Eros Carlson DO [Primary Care Provider] - 03/20/24 10:00 am Ambulatory/Diagnostic Orders: Basic Metabolic Panel [LAB.AMB] Location: None Selected Complete Blood Count w/diff [LAB.AMB] Time Frame: 3 Days, Location: None Selected Patient Instructions/Handouts: Metoprolol (By mouth), Loperamide (By mouth), Cholestyramine (By mouth), Chronic Diarrhea (DC) Activity/Diet/Wound Care/Special Instructions: Continue on antidiarrheals and follow up with oncologist as previously scheduled. Diet as tolerated Activity Limited until seen by Continue on oxygen 2 L via nasal cannula Follow-up GI outpatient Discharge Disposition: HOME SELF-CARE
== END 2023-09-18 15:50 | disposition home or self-care (01) ==
LOC: EC 17:04 → 3SCARD 20:25 → 5NMEDONC 09-15 12:35
PROVIDERS: ADMIT Hospitalist; ATTEND Hospitalist
DX: R55 Syncope and collapse (principal); K52.9 Noninfective gastroenteritis and colitis, unspecified; J96.01 Acute respiratory failure with hypoxia; K21.9 Gastro-esophageal reflux disease without esophagitis; F32.A Depression, unspecified; F41.9 Anxiety disorder, unspecified; E44.0 Moderate protein-calorie malnutrition; R64 Cachexia; R53.1 Weakness; J44.9 Chronic obstructive pulmonary disease, unspecified; F17.200 Nicotine dependence, unspecified, uncomplicated; Z68.1 Body mass index [BMI] 19.9 or less, adult; Z85.01 Personal history of malignant neoplasm of esophagus; Z79.899 Other long term (current) drug therapy; Z88.0 Allergy status to penicillin; Z88.1 Allergy status to other antibiotic agents
CPT/HCPCS: 96361 ×5; 96372 ×4; 96360; 99285; 36415; 93005; 93306; 97116; 97530 ×3; 97162; 97166; 85379; 82747; 83880; 80053; 80048; 84443; 82533; 82607; 82746; 83605; 83735 ×2; 84484; 85025 ×2; 85610; 85730; 87324; 87045; 87329; 87328; 87046; 71046 ×2; 71275; G0378 ×6; J1644 ×4; Q9967

== ENCOUNTER → 2023-12-06 | Outpatient (CLI) | payer MEDICARE ==
--- NOTE | 2023-12-06 17:29 | PE ---
EXAMINATION TYPE: PET CT fusion skull to thigh DATE OF EXAM: 12/06/2023 CLINICAL INDICATION:Female, 63 years old with history of [id number]; TECHNIQUE: Following the intravenous administration of 11.70 mCi of F-18 FDG, whole body images are performed from the skull base to the midthigh. Images are reviewed on the computer in the coronal, axial, and sagittal planes. Reconstructed rotating images are created on independent workstation and reviewed on the computer. A non-contrast CT is performed in conjunction with the PET scan. Glucose level 72 mg/dL CT DLP: 136 mGycm, Automated exposure control for dose reduction was used. COMPARISON: CT 09/14/2023, 07/26/2023, PET/CT 04/03/2023 FINDINGS: Mediastinal SUV mean is 1.6. Hepatic parenchyma SUV mean is 1.6. SKULL BASE AND NECK: No suspicious radiotracer activity. CHEST, MEDIASTINUM, AND HILAR REGION: No suspicious radiotracer activity. ABDOMEN AND PELVIS: Lymph node just below the diaphragm just anterior to the aorta max SUV 10.4, previously 6.9, 7.2 and measuring no measuring 4.5 x 4.1 cm in totality previously 4.0 x 2.6 cm 3 when measuring similarly. MUSCULOSKELETAL STRUCTURES: No suspicious radiotracer activity. OTHER CT: Postsurgical changes to the esophagus and stomach. Right nonobstructing renal calculi. The gallbladder is surgically absent. Atherosclerosis of the arterial vasculature. Colonic diverticulosis . Mild paraseptal emphysema changes are present. Large amount of abdominal contents are above the andrey phragm on the left. IMPRESSION: Increasing size of conglomerate lymphadenopathy compared to immediate prior with increased metabolic activity. No new areas of suspicious hypermetabolic uptake.
== END | disposition home or self-care (01) ==
LOC: RADPETMAIN 12:33
PROVIDERS: ATTEND Radiology Radiation Oncology
DX: D05.12 Intraductal carcinoma in situ of left breast (principal); C15.5 Malignant neoplasm of lower third of esophagus; R59.0 Localized enlarged lymph nodes; F17.210 Nicotine dependence, cigarettes, uncomplicated; Z98.890 Other specified postprocedural states; Z90.49 Acquired absence of other specified parts of digestive tract
CPT/HCPCS: 78815; A9552

== ENCOUNTER 2024-06-21 21:18 | Emergency (ER) | payer MEDICARE ==
[2024-06-21 21:23] VITALS: RESP 18
[2024-06-21] MEDS: SODIUM CHLORIDE 0.9% 1,000 ML IV STA ×2 (22:52→23:56)
[2024-06-21] MEDS: IBUPROFEN 600 MG TAB PO STA (22:53)
[2024-06-21 23:03] LABS: Anisocytosis Slight; Basophils # (A) 0.1 k/uL (0-0.2); Basophils % (A) 1 %; Eosinophils # (A) 0.4 k/uL (0-0.7); Eosinophils % (A) 4 %; HGB 8.6 gm/dL (11.4-16.0); Hypochromasia Moderate; Lymphocytes # (A) 1.3 k/uL (1.0-4.8); Lymphocytes % (A) 13 %; MCH 33.3 pg (25.0-35.0); MCV 104.2 fL (80.0-100.0); Macrocytosis Moderate; Mean Platelet Volume 8.8; Monocytes # (A) 1.6 k/uL (0-1.0); Monocytes % (A) 16 %; Neutrophils # (A) 6.2 k/uL (1.3-7.7); Neutrophils % (A) 63 %; Platelet Count 353 k/uL (150-450); RBC 2.59 m/uL (3.80-5.40); RDW 16.8 % (11.5-15.5); WBC 9.8 k/uL (3.8-10.6)
--- NOTE | 2024-06-21 23:06 | XR ---
EXAMINATION TYPE: XR chest 2V DATE OF EXAM: 06/21/2024 11:00 PM COMPARISON: Prior chest x-ray September 18, 2023 CLINICAL INDICATION: Female, 63 years old with history of fever, cough, TECHNIQUE: Frontal and lateral views of the chest are obtained. FINDINGS: Background chronic emphysematous change is redemonstrated. Persistent tiny bilateral pleur al effusions or pleural thickening. There is no new focal air space opacity or pneumothorax seen bila terally. The cardiac silhouette size is stable and within normal limits. Scoliotic curvature is pres ent in the upper lumbar spine. IMPRESSION: Chronic emphysematous change without acute pulmonary process. [facility], , 06/21/2024 11:03 PM
[2024-06-21 23:14] LABS: ALT 12 U/L (4-34); AST 28 U/L (14-36); African American GFR (CKD) >90 (>60 ml/min/1.73 sqM); Albumin 2.5 g/dL (3.5-5.0); Alkaline Phosphatase 116 U/L (38-126); Anion Gap 4 mmol/L; Blood Urea Nitrogen 19 mg/dL (7-17); Calcium 8.5 mg/dL (8.4-10.2); Carbon Dioxide 21 mmol/L (22-30); Chloride 108 mmol/L (98-107); Glucose 97 mg/dL (74-99); Non-African American GFR(CKD) >90 (>60 ml/min/1.73 sqM); Potassium 3.9 mmol/L (3.5-5.1); Sodium 133 mmol/L (137-145); Total Bilirubin 0.2 mg/dL (0.2-1.3)
[2024-06-22 00:25] LABS: Appearance,Urine Clear (Clear); Bacteria,Urine Rare /hpf; Bilirubin,Urine Negative (Negative); Blood,Urine Negative (Negative); Calcium Oxalate Crystals,Urine Rare /hpf; Color,Urine Yellow; Glucose,Urine (UA) Negative (Negative); Hyaline Casts,Urine 44 /lpf (0-2); Ketones,Urine Negative (Negative); Leukocyte Esterase,Urine Small (Negative); Mucus,Urine Occasional /hpf; Nitrite,Urine Negative (Negative); PH, Urine 5.5 (5.0-8.0); Protein,Urine Trace (Negative); RBC,Urine 3 /hpf (0-5); Specific Gravity,Urine 1.032 (1.001-1.035); Squamous Epithelial Cell,Urine <1 /hpf (0-4); Urobilinogen,Urine <2.0 mg/dL (<2.0); WBC,Urine 22 /hpf (0-5)
--- NOTE | 2024-06-22 00:46 | ED ---
General Adult HPI - General Chief complaint: Fever Stated complaint: Fever,Headache,Chemo Time Seen by Provider: 06/21/24 22:21 Source: patient, RN notes reviewed, old records reviewed Mode of arrival: wheelchair Limitations: no limitations - History of Present Illness Initial comments: Patient is a 63-year-old female who presents emergency department for fever, congestion. Patient has a history of cancer currently on chemo presenting for f ever and intermittent headaches. Symptoms been ongoing for 1 week. Patient last took Tylenol at 8 PM. Patient has been having intermittent fevers for the last week. Has noticed that she gets headache when the fevers are present. Does have some congestion. Patient has a history of pancreatic cancer. Patient is full code. Denies any abdominal pain, chest pain, shortness of breath. Denies nausea or vomiting or diarrhea that is new. Has no other acute complaints. Presents for the intermittent fevers and with her being on chemo. - Related Data Home Medications Medication Instructions Recorded Confirmed busPIRone HCL 10 mg PO BID 08/03/16 09/14/23 Omeprazole [PriLOSEC] 20 mg PO BID 06/15/17 09/14/23 Venlafaxine HCl [Effexor] 75 mg PO BID 04/04/19 09/14/23 Cholecalciferol [Vitamin D3 (25 25 mcg PO DAILY 09/14/23 09/14/23 Mcg = 1000 Iu)] Cyanocobalamin (Vitamin B-12) 1,000 mcg PO DAILY 09/14/23 09/14/23 [Vitamin B-12] Dextroamphetamine/Amphetamine 10 mg PO DAILY@1700 09/14/23 09/14/23 [Adderall] Dextroamphetamine/Amphetamine 30 mg PO BID@0700,1200 09/14/23 09/14/23 [Adderall] Magnesium Oxide [Magox 400] 400 mg PO DAILY 09/14/23 09/14/23 Ondansetron [Zofran] 4 mg PO TID PRN 09/14/23 09/14/23 Potassium Chloride [Klor-Con 20 20 meq PO DAILY 09/14/23 09/14/23 Packets] methocarbamoL [Robaxin-750] 750 mg PO TID PRN 09/14/23 09/14/23 Previous Rx's Medication Instructions Recorded Cholestyramine (with Sugar) 4 gm PO BID #20 packet 09/16/23 [Questran] Lipase/Protease/Amylase [Zenpep Dr 1 each PO AC-TID #90 cap 09/18/23 20,000 Unit Capsule] Loperamide [Imodium] 4 mg PO QID 30 Days #240 cap 09/18/23 Metoprolol Tartrate [Lopressor] 12.5 mg PO BID #60 tab 09/18/23 Nitrofurantoin Monohyd/M-Cryst 100 mg PO Q12HR 5 Days #10 cap 06/22/24 [Macrobid] Allergies Allergy/AdvReac Type Severity Reaction Status Date / Time adhesive tape Allergy REDNESS Verified 06/21/24 21:23 AND BLISTERS cefaclor Allergy Rash/Hives Verified 06/21/24 21:23 cephalexin Allergy Rash/Hives Verified 06/21/24 21:23 escitalopram Allergy Rash/Hives Verified 06/21/24 21:23 Penicillins Allergy Rash/Hives/Swelling Verified 06/21/24 21:23 all over povidone-iodine Allergy topical-Bj Verified 06/21/24 21:23 h/Hives Review of Systems ROS Statement: Those systems with pertinent positive or pertinent negative responses have been documented in the HPI. Review of Systems: CONST: Endorses fever EYES: Denies blurry vision ENT: Denies nasal congestion C/V: Denies Chest pain RESP: Denies shortness of breath GI: Denies abdominal pain : Denies dysuria SKIN: Denies rash. MSK: Denies joint pain. NEURO: Denies current headache ROS Other: All systems not noted in ROS Statement are negative. Past Medical History Past Medical History: Cancer, GERD/Reflux, Osteoarthritis (OA) Additional Past Medical History / Comment(s): COLEMAN'S ESOPHAGUS , esophageal cancer-HAD CHEMO. SORES ON LT FOREARM-HEALED. NARCOLEPSY. frequent VOMITTING and DIARRHEA, loss >=100lbs since february 2023. OCCASSIONAL BLE EDEMA History of Any Multi-Drug Resistant Organisms: MRSA Date of last positivie culture/infection: 12/2016 MDRO Source:: PEG TUBE SITE Past Surgical History: Section, Cholecystectomy, Hysterectomy, Orthopedic Surgery, Tubal Ligation Additional Past Surgical History / Comment(s): ,colonoscopy, oopherectomy, 2/3 rds ESOPHAGECTOMY with pullthrough 1/3rd GASTRECTOMY, PEG TUBE INSERTION AND REMOVAL R/T INFECTION. SCOPE LT KNEE, EGD, CYST REMOVED RT WRIST, C-SECT X 4, july 2023 at HF herniated hemothorax repair with mesh/ reconstructed diaphragm Past Anesthesia/Blood Transfusion Reactions: No Reported Reaction Additional Past Anesthesia/Blood Transfusion Reaction / Comment(s): no hx blood transfusion Past Psychological History: Anxiety, Depression Smoking Status: Current every day smoker Past Alcohol Use History: None Reported Past Drug Use History: None Reported - Past Family History Mother Family Medical History: Cancer Sister(s) Family Medical History: Cancer Brother(s) Family Medical History: Cancer General Exam - General Exam Comments Initial Comments: General: Appears in no acute distress. Currently afebrile HEAD: Normal with no signs of head trauma. EYES: PERRLA, EOMI, conjunctiva normal, no discharge. ENT: Hearing grossly intact, normal oropharynx. RESPIRATORY: Clear breath sounds bilaterally. No wheezes, rales, or rhonchi. C/V: Regular rate and rhythm. S1 and S2 auscultated, no edema, peripheral pulses 2+ and intact throughout ABD: Abd is soft, nontender, nondistended EXT: Normal range of motion, no obvious deformity SKIN: No rashes or lesions observed on exposed skin. NEURO: Alert and oriented x 4. Cranial nerves II-XII intact. No focal sensory or strength deficits. Limitations: no limitations Course Vital Signs 06/21/24 06/21/24 06/22/24 21:20 23:53 01:34 Temperature 99.6 F 98 F 98.0 F Pulse Rate 111 H 87 86 Respiratory 18 18 Rate Blood Pressure 135/118 100/70 91/62 O2 Sat by Pulse 98 98 98 Oximetry Medical Decision Making - Medical Decision Making Was pt. sent in by a medical professional or institution (, PA, HOME THEATER INSTALLER, urgent care, hospital, or long-term...) When possible be specific @ -No Did you speak to anyone other than the patient for history (EMS, parent, family, police, friend...)? What history was obtained from this source @ -No Did you review nursing and triage notes (agree or disagree)? Why? @ -I reviewed and agree with nursing and triage notes Were old charts reviewed (outside hosp., previous admission, EMS record, old EKG, old radiological studies, urgent care reports/EKG's, long-term records)? Report findings @ -No old charts were reviewed Differential Diagnosis (chest pain, altered mental status, abdominal pain women, abdominal pain men, vaginal bleeding, weakness, fever, dyspnea, syncope, headache, dizziness, GI bleed, back pain, seizure, CVA, palpatations, mental health, musculoskeletal)? @ -Fevers, sepsis, UTI, viral syndrome, dehydration. This list is not all inclusive. EKG interpreted by me (3pts min.). @ -As above X-rays interpreted by me (1pt min.). @ -Chest x-ray reveals no obvious acute cardiopulmonary process. CT interpreted by me (1pt min.). @ -None done U/S interpreted by me (1pt. min.). @ -None done What testing was considered but not performed or refused? (CT, X-rays, U/S, la bs)? Why? @ -None What meds were considered but not given or refused? Why? @ -None Did you discuss the management of the patient with other professionals (professionals i.e. , PA, HOME THEATER INSTALLER, lab, RT, psych nurse, social science professor, mortgage loan counselor, teacher, airport operations officer, case management rn)? Give summary @ -No Was smoking cessation discussed for >3mins.? @ -No Was critical care preformed (if so, how long)? @ -No Were there social determinants of health that impacted care today? How? (Homelessness, low income, unemployed, alcoholism, drug addiction, transportation, low edu. Level, literacy, decrease access to med. care, fci, rehab)? @ -No Was there de-escalation of care discussed even if they declined (Discuss DNR or withdrawal of care, Hospice)? DNR status @ -No What co-morbidities impacted this encounter? (DM, HTN, Smoking, COPD, CAD, Cancer, CVA, ARF, Chemo, Hep., AIDS, mental health diagnosis, sleep apnea, morbid obesity)? @ -Pancreatic cancer currently on chemotherapy, anemia Was patient admitted / discharged? Hospital course, mention meds given and route, prescriptions, significant lab abnormalities, going to OR and other pertinent info. @ -Patient presents emergency department complaining of fevers as well as intermittent headaches for the last week. Is on chemotherapy. Presents for further evaluation at this time. Currently afebrile. Vitals are within acceptable limits. Will obtain infectious workup. Patient was in agreement this plan. Patient symptomatically treat with IV fluids, Motrin. Chest x-ray unremarkable. Laboratory studies remarkable for known anemia at 8.6 which is being closely monitored by oncology. Remainder the workup relatively unremarkable except for urinalysis that is borderline for a UTI. I discussed the results with the patient as well as family. She would be empirically treated for UTI considering she is on chemotherapy. Patient will be started on Macrobid and given a dose prior to discharge. Recommended strict return precautions as well as close follow-up with PCP and oncology. She was in agreement this plan. Workup showed no evidence of neutropenia. I will provide the patient with a prescription for macrobid.instructed the lissette manley to follow up with their PCP in the next 1-3 days. I explained that the patient should return to the emergency department if they experience any worsening symptoms. Strict return precautions were discussed with the patient. The patient expressed understanding of these instructions. I answered all questions that the patient had. The patient was discharged home in good condition with their prescriptions and follow up information. Undiagnosed new problem with uncertain prognosis? @ -No Drug Therapy requiring intensive monitoring for toxicity (Heparin, Nitro, Insulin, Cardizem)? @ -No Were any procedures done? @ -No Diagnosis/symptom? @ -Fever, UTI in the setting of malignancy on chemotherapy Acute, or Chronic, or Acute on Chronic? @ -Acute Uncomplicated (without systemic symptoms) or Complicated (systemic symptoms)? @ -Complicated Side effects of treatment? @ -No Exacerbation, Progression, or Severe Exacerbation? @ -No Poses a threat to life or bodily function? How? (Chest pain, [place], [place], pneumonia, PE, COPD, DKA, ARF, appy, cholecystitis, CVA, Diverticulitis, Homicidal, Clements icidal, threat to staff... and all critical care pts) @ -Unlikely at this time - Lab Data Result diagrams: 06/21/24 22:49 06/21/24 22:49 Lab Results 06/21/24 06/21/24 06/21/24 Range/Units 22:48 22:48 22:49 WBC 9.8 (3.8-10.6) k/uL RBC 2.59 L (3.80-5.40) m/uL Hgb 8.6 L (11.4-16.0) gm/dL Hct 27.0 L (34.0-46.0) % MCV 104.2 H (80.0-100.0) fL MCH 33.3 (25.0-35.0) pg MCHC 32.0 (31.0-37.0) g/dL RDW 16.8 H (11.5-15.5) % Plt Count 353 (150-450) k/uL MPV 8.8 Neutrophils % 63 % Lymphocytes % 13 % Monocytes % 16 % Eosinophils % 4 % Basophils % 1 % Neutrophils # 6.2 (1.3-7.7) k/uL Lymphocytes # 1.3 (1.0-4.8) k/uL Monocytes # 1.6 H (0-1.0) k/uL Eosinophils # 0.4 (0-0.7) k/uL Basophils # 0.1 (0-0.2) k/uL Hypochromasia Moderate Anisocytosis Slight Macrocytosis Moderate Sodium (137-145) mmol/L Potassium (3.5-5.1) mmol/L Chloride (98-107) mmol/L Carbon Dioxide (22-30) mmol/L Anion Gap mmol/L BUN (7-17) mg/dL Creatinine (0.52-1.04) mg/dL Est GFR (CKD-EPI)AfAm (>60 ml/min/1.73 sqM) Est GFR (CKD-EPI)NonAf (>60 ml/min/1.73 sqM) Glucose (74-99) mg/dL Plasma Lactic Acid Joe (0.7-2.0) mmol/L Calcium (8.4-10.2) mg/dL Total Bilirubin (0.2-1.3) mg/dL AST (14-36) U/L ALT (4-34) U/L Alkaline Phosphatase (38-126) U/L Total Protein (6.3-8.2) g/dL Albumin (3.5-5.0) g/dL Urine Color Urine Appearance (Clear) Urine pH (5.0-8.0) Ur Specific Call[place] (1.001-1.035) Urine Protein (Negative) Urine Glucose (UA) (Negative) Urine Ketones (Negative) Urine Blood (Negative) Urine Nitrite (Negative) Urine Bilirubin (Negative) Urine Urobilinogen (<2.0) mg/dL Ur Leukocyte Esterase (Negative) Urine RBC (0-5) /hpf Urine WBC (0-5) /hpf Ur Squamous Epith Cells (0-4) /hpf Calcium Oxalate Crystal (None) /hpf Urine Bacteria (None) /hpf Hyaline Casts (0-2) /lpf Urine Mucus (None) /hpf Influenza Type A (PCR) Not Detected (Not Detectd) Influenza Type B (PCR) Not Detected (Not Detectd) RSV (PCR) Not Detected (Not Detectd) SARS-CoV-2 (PCR) Not Detected (Not Detectd) Group A Strep (PCR) NOT DETECTED (Not Detectd) 06/21/24 06/21/24 06/21/24 Range/Units 22:49 22:49 22:49 WBC (3.8-10.6) k/uL RBC (3.80-5.40) m/uL Hgb (11.4-16.0) gm/dL Hct (34.0-46.0) % MCV (80.0-100.0) fL MCH (25.0-35.0) pg MCHC (31.0-37.0) g/dL RDW (11.5-15.5) % Plt Count (150-450) k/uL MPV Neutrophils % % Lymphocytes % % Monocytes % % Eosinophils % % Basophils % % Neutrophils # (1.3-7.7) k/uL Lymphocytes # (1.0-4.8) k/uL Monocytes # (0-1.0) k/uL Eosinophils # (0-0.7) k/uL Basophils # (0-0.2) k/uL Hypochromasia Anisocytosis Macrocytosis Sodium 133 L (137-145) mmol/L Potassium 3.9 (3.5-5.1) mmol/L Chloride 108 H (98-107) mmol/L Carbon Dioxide 21 L (22-30) mmol/L Anion Gap 4 mmol/L BUN 19 H (7-17) mg/dL Creatinine 0.72 (0.52-1.04) mg/dL Est GFR (CKD-EPI)AfAm >90 (>60 ml/min/1.73 sqM) Est GFR (CKD-EPI)NonAf >90 (>60 ml/min/1.73 sqM) Glucose 97 (74-99) mg/dL Plasma Lactic Acid Joe 1.2 (0.7-2.0) mmol/L Calcium 8.5 (8.4-10.2) mg/dL Total Bilirubin 0.2 (0.2-1.3) mg/dL AST 28 (14-36) U/L ALT 12 (4-34) U/L Alkaline Phosphatase 116 (38-126) U/L Total Protein 5.0 L (6.3-8.2) g/dL Albumin 2.5 L (3.5-5.0) g/dL Urine Color Yellow Urine Appearance Clear (Clear) Urine pH 5.5 (5.0-8.0) Ur Specific [place] 1.032 (1.001-1.035) Urine Protein Trace H (Negative) Urine Glucose (UA) Negative (Negative) Urine Ketones Negative (Negative) Urine Blood Negative (Negative) Urine Nitrite Negative (Negative) Urine Bilirubin Negative (Negative) Urine Urobilinogen <2.0 (<2.0) mg/dL Ur Leukocyte Esterase Small H (Negative) Urine RBC 3 (0-5) /hpf Urine WBC 22 H (0-5) /hpf Ur Squamous Epith Cells <1 (0-4) /hpf Calcium Oxalate Crystal Rare H (None) /hpf Urine Bacteria Rare H (None) /hpf Hyaline Casts 44 H (0-2) /lpf Urine Mucus Occasional H (None) /hpf Influenza Type A (PCR) (Not Detectd) Influenza Type B (PCR) (Not Detectd) RSV (PCR) (Not Detectd) SARS-CoV-2 (PCR) (Not Detectd) Group A Strep (PCR) (Not Detectd) Disposition Clinical Impression: Fever, Malignancy, UTI (urinary tract infection) Disposition: HOME SELF-CARE Condition: Good Instructions (If sedation given, give patient instructions): Urinary Tract Infection in Women (ED), Fever in Adults (ED) Prescriptions: Nitrofurantoin Monohyd/M-Cryst [Macrobid] 100 mg PO Q12HR 5 Days #10 cap Is patient prescribed a controlled substance at d/c from ED?: No Referrals: Eros Carlson DO [Primary Care Provider] - 1-2 days Time of Disposition: 00:46
[2024-06-22] MEDS: NITROFURANTOIN MONOHYD/M-CRYST 100 MG CAP PO STA (01:33)
[2024-06-22 01:38] VITALS: BP 91/62; PULSE 86; TEMP 98
== END 2024-06-22 01:43 | disposition home or self-care (01) ==
LOC: EC 21:18
DX: C80.1 Malignant (primary) neoplasm, unspecified (principal); N39.0 Urinary tract infection, site not specified; D64.9 Anemia, unspecified; F17.200 Nicotine dependence, unspecified, uncomplicated; Z51.11 Encounter for antineoplastic chemotherapy; Z11.52 Encounter for screening for COVID-19; Z91.048 Other nonmedicinal substance allergy status; Z88.1 Allergy status to other antibiotic agents; Z88.0 Allergy status to penicillin; Z88.8 Allergy status to other drugs, medicaments and biological substances
CPT/HCPCS: 36415; 71046; 80053; 81001; 83605; 85025; 87040; 87086; 87636; 87651; 96360; 99284

== ENCOUNTER 2024-11-04 10:32 | Day surgery (SDC) | payer MEDICARE ==
[2024-11-03 12:06] VITALS: BMI 19.1
[~2024-11-04 10:32] MED LIST changes: +HYDROmorphone 0.5 MG/0.5 ML SYRINGE IVP PRN; -LACTATED RINGERS 1,000 ML IV SCH; -LIDOCAINE 1% (10MG/ML) FOR IV START INTRADERMA PRN; +MIDAZOLAM 2 MG/2 ML VIAL IV PRN; +Pre Op ABX Message 1 EACH MISC MISCELLANE ONE; +fentaNYL (PF) 50 MCG/ML 2 ML AMP IVP PRN
[2024-11-04 10:54] VITALS: TEMP 97.8
[2024-11-04] MEDS: IV FLUID CONTINUATION 1,000 ML IV ONE (11:20)
[2024-11-04] MEDS: ONDANSETRON 4 MG/2 ML VIAL IVP ONE (11:23)
[2024-11-04] MEDS: LIDOCAINE 1% (10MG/ML) FOR IV START INTRADERMA PRN (11:23)
[2024-11-04] MEDS: LACTATED RINGERS 1,000 ML IV SCH (11:23)
[2024-11-04] MEDS: DEXAMETHASONE SOD PHOSPHATE 4 MG/ML 1 ML VIAL IV ONE (11:23)
[2024-11-04] MEDS ORDERED: fentaNYL (PF) 50 MCG/ML 2 ML AMP ONE (11:49)
[2024-11-04] MEDS ORDERED: PROPOFOL 10 MG/ML 20 ML VIAL IV ONE (11:49)
[2024-11-04] MEDS: LIDOCAINE 1% INJ 10MG/ML (20 ML MDV) SQ ONE ×3 (11:56→12:13)
--- NOTE | 2024-11-04 12:57 | P.OP ---
Date of Procedure: 11/04/24 Preoperative Diagnosis: Pancreatic cancer Postoperative Diagnosis: Pancreatic cancer Procedure(s) Performed: Right sided Mediport insertion Anesthesia: ELLIOT Surgeon: Gee Boothe Pathology: none sent Condition: stable Disposition: PACU Indications for Procedure: Pancreatic cancer Operative Findings: n/a Description of Procedure: Patient was brought to the operating suite where she was cleaned and draped in sterile fashion a timeout was called and everyone agreed with the information recited. Next an introducer needle was used to gain access to the right subclavian vein a guidewire was placed this was confirmed using fluoroscopy. Next a 1 minute timeout was performed to decrease the FiO2. I then use electrocautery to make a pocket once this was done a tunneling device was used to tunneled the catheter underneath the fat. A dilator sheath combo was used to dilate the tract leading up to the subclavian vein the catheter was threaded through this dilator sheath combo to 35 under fluoroscopy the catheter was pulled back to the SVC junction dilator sheath was removed the Mediport was placed and secured using 2-0 Ethibond suture. The skin was closed using 4-0 Vicryl suture. The patient tolerated procedure well and was transported to PACU in stable condition
--- NOTE | 2024-11-04 13:24 | XR ---
EXAMINATION TYPE: XR chest 1V portable DATE OF EXAM: 11/04/2024 1:19 PM COMPARISON: 06/21/2024 CLINICAL INDICATION: Female, 64 years old with history of r/o pneumothorax, TECHNIQUE: XR chest 1V portable views of the chest are obtained. FINDINGS: Demonstrated are scattered senescent parenchymal change. There is no evidence for focal infiltrate. Small bilateral pleural effusions. No evidence of pneumoth orax. Right-sided MediPort catheter with distal tip overlying the SVC. The heart is stable. Hilar and mediastinal structures are within normal limits. Degenerative changes are seen of the dorsal spine. IMPRESSION: 1. Chronic changes without evidence for acute pulmonary disease. [facility], , 11/04/2024 1:22 PM
[2024-11-04 13:27] VITALS: BP 135/82; PULSE 73; RESP 16
--- NOTE | 2024-11-04 15:34 | FL ---
EXAMINATION TYPE: FL guided central line placemt DATE OF EXAM: 11/04/2024 FLUOROSCOPY MEDIPORT, FLUORO TIME: 11 SECONDS, DAP: [id number] Images show right anterior chest wall injection port with subclavian access and catheter tip near the lower SVC. One image is provided. [facility], , 11/04/2024 3:32 PM
== END 2024-11-04 14:05 | disposition home or self-care (01) ==
LOC: OR 10:32
PROVIDERS: ATTEND Surgery
DX: C25.9 Malignant neoplasm of pancreas, unspecified (principal); K21.9 Gastro-esophageal reflux disease without esophagitis; Z87.891 Personal history of nicotine dependence; Z88.0 Allergy status to penicillin; Z88.1 Allergy status to other antibiotic agents; Z88.8 Allergy status to other drugs, medicaments and biological substances; Z79.899 Other long term (current) drug therapy
CPT/HCPCS: 77001; 71045; 36561; C1788; J1100; J2405; J2003; J3010; J2704

== ENCOUNTER 2024-11-25 12:55 | Emergency (ER) | payer MEDICARE ==
--- NOTE | 2024-11-25 15:15 | ED ---
General Adult HPI - General Chief complaint: Recheck/Abnormal Lab/Rx Stated complaint: abn labs Time Seen by Provider: 11/25/24 13:06 Source: patient, RN notes reviewed Mode of arrival: ambulatory Limitations: no limitations - History of Present Illness Initial comments: This is a 64-year-old female with history of pancreatic cancer presenting with son for abnormal lab work. Patient states she was sent by oncologist following discovery of pancytopenia with hemoglobin 7.38 as well as dangerously low platelet levels. Patient endorses SOB, dizziness and fatigue. Patient states she is currently undergoing chemotherapy. States she has a port as well. Son states patient has a follow-up appointment with Dr. Reddy on 11/29/2024. Onset/Timin -: days(s) - Related Data Home Medications Medication Instructions Recorded Confirmed busPIRone HCL 10 mg PO BID 08/03/16 11/03/24 Omeprazole [PriLOSEC] 20 mg PO BID 06/15/17 11/03/24 Venlafaxine HCl [Effexor] 75 mg PO BID 04/04/19 11/03/24 Cholecalciferol [Vitamin D3 (25 25 mcg PO DAILY 09/14/23 11/04/24 Mcg = 1000 Iu)] Cyanocobalamin (Vitamin B-12) 1,000 mcg PO DAILY 09/14/23 11/04/24 [Vitamin B-12] Ondansetron [Zofran] 4 mg PO TID PRN 09/14/23 11/04/24 Potassium Chloride [Klor-Con 20 20 meq PO DAILY 09/14/23 11/03/24 Packets] methocarbamoL [Robaxin-750] 750 mg PO TID PRN 09/14/23 11/04/24 Ciprofloxacin HCl [Cipro] 500 mg PO BID 11/03/24 11/04/24 Diphenoxylate HCl/Atropine 1 tab PO DIRECTED 11/03/24 11/03/24 [Diphenoxylate HCl/Atropine 2.5-0.025] Lipase/Protease/Amylase [Creon Dr 2 tab PO TID 11/03/24 11/04/24 24,000 Unit Capsule] traMADol HCL [Tramadol HCl] 75 mg PO DIRECTED PRN 11/03/24 11/04/24 Previous Rx's Medication Instructions Recorded Loperamide [Imodium] 4 mg PO QID 30 Days #240 cap 09/18/23 Nitrofurantoin Monohyd/M-Cryst 100 mg PO Q12HR 5 Days #10 cap 06/22/24 [Macrobid] Allergies Allergy/AdvReac Type Severity Reaction Status Date / Time adhesive tape Allergy REDNESS Verified 11/25/24 13:17 AND BLISTERS cefaclor Allergy Rash/Hives Verified 11/25/24 13:17 cephalexin Allergy Rash/Hives Verified 11/25/24 13:17 escitalopram Allergy Rash/Hives Verified 11/25/24 13:17 Penicillins Allergy Rash/Hives/Swelling Verified 11/25/24 13:17 all over povidone-iodine Allergy topical-Bj Verified 11/25/24 13:17 h/Hives Review of Systems ROS Statement: Those systems with pertinent positive or pertinent negative responses have been documented in the HPI. ROS Other: All systems not noted in ROS Statement are negative. Past Medical History Past Medical History: Cancer, GERD/Reflux, Osteoarthritis (OA) Additional Past Medical History / Comment(s): COLEMAN'S ESOPHAGUS , esophageal cancer-HAD CHEMO&RAD. Left Breast CA. Pancreatic CA. SORES ON LT FOREARM- HEALED. NARCOLEPSY. frequent VOMITTING and DIARRHEA, loss >=100lbs since february 2023. OCCASSIONAL BLE EDEMA History of Any Multi-Drug Resistant Organisms: MRSA Date of last positivie culture/infection: 12/2016 MDRO Source:: PEG TUBE SITE Past Surgical History: Breast Surgery, Section, Cholecystectomy, Hernia Repair, Hysterectomy, Orthopedic Surgery, Tubal Ligation Additional Past Surgical History / Comment(s): ,colonoscopy, Left oopherectomy, 2/3rds ESOPHAGECTOMY with pullthrough 1/3rd GASTRECTOMY, PEG TUBE INSERTION AND REMOVAL R/T INFECTION. SCOPE LT KNEE, EGD, CYST REMOVED RT WRIST, C-SECT X july 2023 at HF herniated hemothorax repair with mesh/ reconstructed diaphragm; left breast lumpectomy Past Anesthesia/Blood Transfusion Reactions: No Reported Reaction Additional Past Anesthesia/Blood Transfusion Reaction / Comment(s): no hx blood transfusion Past Psychological History: Anxiety, Depression Smoking Status: Former smoker Past Alcohol Use History: None Reported Past Drug Use History: None Reported - Past Family History Mother Family Medical History: Cancer Sister(s) Family Medical History: Cancer Brother(s) Family Medical History: Cancer General Exam Limitations: no limitations General appearance: alert, in no apparent distress Head exam: Present: atraumatic, normocephalic, normal inspection Eye exam: Present: normal appearance, PERRL, EOMI. Absent: scleral icterus, conjunctival injection, periorbital swelling ENT exam: Present: normal exam, mucous membranes moist Neck exam: Present: normal inspection. Absent: tenderness, meningismus, lymphadenopathy Respiratory exam: Present: normal lung sounds bilaterally, other (Port noted in right upper chest without surrounding erythema, tenderness, discharge.). Absent: respiratory distress, wheezes, rales, rhonchi, stridor, accessory muscle use, decreased breath sounds, prolonged expiratory Cardiovascular Exam: Present: regular rate, normal rhythm, normal heart sounds. Absent: systolic murmur, diastolic murmur, rubs, gallop, clicks GI/Abdominal exam: Present: soft, normal bowel sounds. Absent: distended, tenderness, guarding, rebound, rigid Extremities exam: Present: normal inspection, full ROM, normal capillary refill, other (Bilateral radial pulses +2.). Absent: tenderness, pedal edema, joint swelling, calf tenderness Back exam: Present: normal inspection Neurological exam: Present: alert, oriented X3, CN II-XII intact Psychiatric exam: Present: normal affect, normal mood Skin exam: Present: warm, dry, intact, normal color. Absent: rash Course Vital Signs 11/25/24 11/25/24 11/25/24 13:13 19:06 19:25 Temperature 97.7 F 98.6 F 98.7 F Pulse Rate 83 80 78 Respiratory 15 18 18 Rate Blood Pressure 123/77 109/72 110/68 O2 Sat by Pulse 100 99 98 Oximetry 11/25/24 11/25/24 11/25/24 19:45 20:54 21:47 Temperature 98.9 F 98.8 F 98.9 F Pulse Rate 81 73 77 Respiratory 18 18 18 Rate Blood Pressure 111/65 108/63 124/76 O2 Sat by Pulse 98 99 100 Oximetry Medical Decision Making - Medical Decision Making Was pt. sent in by a medical professional or institution (, PA, REHAB TECHNICIAN, urgent care, hospital, or longterm...) When possible be specific @ -No Did you speak to anyone other than the patient for history (EMS, parent, family, police, friend...)? What history was obtained from this source @ -No Did you review nursing and triage notes (agree or disagree)? Why? @ -I reviewed and agree with nursing and triage notes Were old charts reviewed (outside hosp., previous admission, EMS record, old EKG, old radiological studies, urgent care reports/EKG's, longterm records)? Report findings @ -No old charts were reviewed Differential Diagnosis (chest pain, altered mental status, abdominal pain women, abdominal pain men, vaginal bleeding, weakness, fever, dyspnea, syncope, headache, dizziness, GI bleed, back pain, seizure, CVA, palpatations, mental health, musculoskeletal)? @ -Differential Weakness: Hypoglycemia, shock, sepsis, hyponatremia, anemia, infection, IN, ETOH, adverse medicine reaction, overdose, stroke, this is not meant to be an all-inclusive list. EKG interpreted by me (3pts min.). @ -Not done X-rays interpreted by me (1pt min.). @ -None done CT interpreted by me (1pt min.). @ -None done U/S interpreted by me (1pt. min.). @ -None done What testing was considered but not performed or refused? (CT, X-rays, U/S, labs)? Why? @ -None What meds were considered but not given or refused? Why? @ -None Did you discuss the management of the patient with other professionals (professionals i.e. , PA, REHAB TECHNICIAN, lab, RT, psych nurse, social work msw, brick mason, teacher, transportation security officer, high risk case manager)? Give summary @ -No Was smoking cessation discussed for >3mins.? @ -No Was critical care preformed (if so, how long)? @ -No Were there social determinants of health that impacted care today? How? (Homele ssness, low income, unemployed, alcoholism, drug addiction, transportation, low edu. Level, literacy, decrease access to med. care, senior living, rehab)? @ -No Was there de-escalation of care discussed even if they declined (Discuss DNR or withdrawal of care, Hospice)? DNR status @ -No What co-morbidities impacted this encounter? (DM, HTN, Smoking, COPD, CAD, Cancer, CVA, ARF, Chemo, Hep., AIDS, mental health diagnosis, sleep apnea, morbid obesity)? @ -None Was patient admitted / discharged? Hospital course, mention meds given and route, prescriptions, significant lab abnormalities, going to OR and other pertinent info. @ -Lab work shows pancytopenia with hemoglobin 6.7, hypokalemia 2.9. LFT and kidney function WNL patient is blood type A+. Provided IV normal saline with 1 unit of PRBC and p.o. potassium chloride. After discussing with patient and her sons, decision was made to discharge with close PCP follow-up. Advised return to ER if experiencing worsening fatigue, dizziness, dyspnea. Discussed patient with Dr. Alcantar. Undiagnosed new problem with uncertain prognosis? @ -No Drug Therapy requiring intensive monitoring for toxicity (Heparin, Nitro, Insulin, Cardizem)? @ -No Were any procedures done? @ -No Diagnosis/symptom? @ -Anemia, hypokalemia Acute, or Chronic, or Acute on Chronic? @ -Acute Uncomplicated (without systemic symptoms) or Complicated (systemic symptoms)? @ -Uncomplicated Side effects of treatment? @ -No Exacerbation, Progression, or Severe Exacerbation? @ -No Poses a threat to life or bodily function? How? (Chest pain, [place], [place], pneumonia, PE, COPD, DKA, ARF, appy, cholecystitis, CVA, Diverticulitis, Homicidal, Suicidal, threat to staff... and all critical care pts) @ -No - Lab Data Result diagrams: 11/25/24 16:11 11/25/24 16:11 Lab Results 11/25/24 11/25/24 11/25/24 Range/Units 16:11 16:11 17:15 WBC 3.32 L (4.50-10.00) 10*3/uL RBC 2.06 L (4.10-5.20) 10*6/uL Hgb 6.7 L* (12.0-15.0) g/dL Hct 20.9 L (37.2-46.3) % MCV 101.5 H (80.0-97.0) fL MCH 32.5 H (27.0-32.0) pg MCHC 32.1 (32.0-37.0) g/dL Plt Count 44 L (140-440) 10*3/uL MPV 10.9 (9.5-12.2) fL Immature Gran % (Auto) 0.6 % Neutrophils % 55.2 % Lymphocytes % 31.6 % Monocytes % 12.3 % Eosinophils % 0.0 % Basophils % 0.3 % Immature Gran # 0.02 (0.00-0.04) 10*3/uL Neutrophils # 1.83 (1.80-7.70) 10*3/uL Lymphocytes # 1.05 (0.90-5.00) 10*3/uL Monocytes # 0.41 (0.20-1.00) 10*3/uL Eosinophils # 0.00 L (0.04-0.35) 10*3/uL Basophils # 0.01 (0.00-0.10) 10*3/uL Manual Slide Review Performed Sodium 139 (137-145) mmol/L Potassium 2.9 L (3.5-5.1) mmol/L Chloride 114 H (98-107) mmol/L Carbon Dioxide 18 L (22-30) mmol/L Anion Gap 7 mmol/L BUN 10 (7-17) mg/dL Creatinine 0.79 (0.52-1.04) mg/dL Est GFR (CKD-EPI)AfAm >90 (>60 ml/min/1.73 sqM) Est GFR (CKD-EPI)NonAf 80 (>60 ml/min/1.73 sqM) Glucose 75 (74-99) mg/dL Calcium 8.1 L (8.4-10.2) mg/dL Total Bilirubin 0.2 (0.2-1.3) mg/dL AST 27 (14-36) U/L ALT 12 (4-34) U/L Alkaline Phosphatase 83 (38-126) U/L Total Protein 5.1 L (6.3-8.2) g/dL Albumin 2.5 L (3.5-5.0) g/dL Blood Type A Positive Blood Type Recheck A Pos Bld Type Recheck Status No Antibody Screen NEGATIVE Crossmatch See Detail Spec Expiration Date 11/28/20242314 Disposition Clinical Impression: Anemia, Hypokalemia Disposition: HOME SELF-CARE Condition: Fair Instructions (If sedation given, give patient instructions): Hypokalemia (ED), Anemia (ED) Additional Instructions: Follow-up with Dr. Reddy for scheduled appointment on 11/29/2024. Return to ER if experiencing worsening dizziness, fatigue, shortness of breath. Is patient prescribed a controlled substance at d/c from ED?: No Referrals: Eros Carlson DO [Primary Care Provider] - 1-2 days Luis Alberto Reddy MD [STAFF PHYSICIAN] - 1-2 days Eloina Reddy MD [STAFF PHYSICIAN] - 1-2 days Time of Disposition: 17:28
[2024-11-25 16:20] LABS: Basophils # (A) 0.01 10*3/uL (0.00-0.10); Basophils % (A) 0.3 %; HCT 20.9 % (37.2-46.3); Lymphocytes # (A) 1.05 10*3/uL (0.90-5.00); Lymphocytes % (A) 31.6 %; MCH 32.5 pg (27.0-32.0); MCHC 32.1 g/dL (32.0-37.0); MCV 101.5 fL (80.0-97.0); Mean Platelet Volume 10.9 fL (9.5-12.2); Monocytes # (A) 0.41 10*3/uL (0.20-1.00); Monocytes % (A) 12.3 %; Neutrophils # (A) 1.83 10*3/uL (1.80-7.70); Neutrophils % (A) 55.2 %; RBC 2.06 10*6/uL (4.10-5.20); RDW 16.4 % (11.5-14.5); WBC 3.32 10*3/uL (4.50-10.00)
[2024-11-25 16:31] LABS: ALT 12 U/L (4-34); AST 27 U/L (14-36); African American GFR (CKD) >90 (>60 ml/min/1.73 sqM); Albumin 2.5 g/dL (3.5-5.0); Alkaline Phosphatase 83 U/L (38-126); Anion Gap 7 mmol/L; Blood Urea Nitrogen 10 mg/dL (7-17); Calcium 8.1 mg/dL (8.4-10.2); Carbon Dioxide 18 mmol/L (22-30); Chloride 114 mmol/L (98-107); Glucose 75 mg/dL (74-99); HGB 6.7 g/dL (12.0-15.0); Non-African American GFR(CKD) 80 (>60 ml/min/1.73 sqM); Potassium 2.9 mmol/L (3.5-5.1); Sodium 139 mmol/L (137-145); Total Bilirubin 0.2 mg/dL (0.2-1.3); Total Protein 5.1 g/dL (6.3-8.2)
[2024-11-25 16:49] LABS: Platelet Count 44 10*3/uL (140-440)
[2024-11-25] MEDS: POTASSIUM CHLORIDE ER 20 MEQ TAB.ER PO STA (17:24)
[2024-11-25] MEDS: SODIUM CHLORIDE 0.9% 1,000 ML IV STA (17:24)
[2024-11-25 19:08] VITALS: RESP 18
[2024-11-25 21:48] VITALS: BP 124/76; PULSE 77; TEMP 98.9
== END 2024-11-25 21:49 | disposition home or self-care (01) ==
LOC: EC 12:55
DX: D64.9 Anemia, unspecified (principal); E87.6 Hypokalemia; Z87.891 Personal history of nicotine dependence; Z88.1 Allergy status to other antibiotic agents; Z88.0 Allergy status to penicillin; Z88.8 Allergy status to other drugs, medicaments and biological substances; Z91.048 Other nonmedicinal substance allergy status; Z91.041 Radiographic dye allergy status
CPT/HCPCS: 36415; 86900; 86901; 80053; 85025; 86850; 86920; 99285; 96360; 36430; P9016

== ENCOUNTER 2025-01-19 22:18 | Emergency (ER) | payer MEDICARE ==
--- NOTE | 2025-01-19 22:36 | ED ---
Recheck HPI - General Source: patient, RN notes reviewed Mode of arrival: ambulatory Limitations: no limitations - History of Present Illness Complaint: abnormal lab <Lida Velez - Last Filed: 01/20/25 19:06> <Tiera Crowder - Last Filed: 01/26/25 08:26> - General Chief Complaint: Recheck/Abnormal Lab/Rx Stated Complaint: shortness of breath, bloody nose Time Seen by Provider: 01/19/25 22:24 - History of Present Illness Initial Comments: This is a 64-year-old female who presents to the emergency department for low hemoglobin. Patient follows with Dr. Reddy for pancreatic cancer. She is currently on chemotherapy. States that she had blood work done today and was told that her hemoglobin level was low and she needed to come to the emergency department for a transfusion. She did have a similar problem 2 months ago and came to the emergency department for a transfusion at that time as well. Reports increasing shortness of breath over the last couple of days which typically happens when her hemoglobin gets low. Denies any chest pain. She does report having some problems with bloody noses which she attributes to the low platelets from the chemo. Patient states that after the transfusion she would like to go home. (Lida Velez) - Related Data Home Medications Medication Instructions Recorded Confirmed busPIRone HCL 10 mg PO BID 08/03/16 11/03/24 Omeprazole [PriLOSEC] 20 mg PO BID 06/15/17 11/03/24 Venlafaxine HCl [Effexor] 75 mg PO BID 04/04/19 11/03/24 Cholecalciferol [Vitamin D3 (25 25 mcg PO DAILY 09/14/23 11/04/24 Mcg = 1000 Iu)] Cyanocobalamin (Vitamin B-12) 1,000 mcg PO DAILY 09/14/23 11/04/24 [Vitamin B-12] Ondansetron [Zofran] 4 mg PO TID PRN 09/14/23 11/04/24 Potassium Chloride [Klor-Con 20 20 meq PO DAILY 09/14/23 11/03/24 Packets] methocarbamoL [Robaxin-750] 750 mg PO TID PRN 09/14/23 11/04/24 Ciprofloxacin HCl [Cipro] 500 mg PO BID 11/03/24 11/04/24 Diphenoxylate HCl/Atropine 1 tab PO DIRECTED 11/03/24 11/03/24 [Diphenoxylate HCl/Atropine 2.5-0.025] Lipase/Protease/Amylase [Creon Dr 2 tab PO TID 11/03/24 11/04/24 24,000 Unit Capsule] traMADol HCL [Tramadol HCl] 75 mg PO DIRECTED PRN 11/03/24 11/04/24 Previous Rx's Medication Instructions Recorded Loperamide [Imodium] 4 mg PO QID 30 Days #240 cap 09/18/23 Nitrofurantoin Monohyd/M-Cryst 100 mg PO Q12HR 5 Days #10 cap 06/22/24 [Macrobid] Allergies Allergy/AdvReac Type Severity Reaction Status Date / Time adhesive tape Allergy REDNESS Verified 01/19/25 22:24 AND BLISTERS cefaclor Allergy Rash/Hives Verified 01/19/25 22:24 cephalexin Allergy Rash/Hives Verified 01/19/25 22:24 escitalopram Allergy Rash/Hives Verified 01/19/25 22:24 Penicillins Allergy Rash/Hives/Swelling Verified 01/19/25 22:24 all over povidone-iodine Allergy topical-Bj Verified 01/19/25 22:24 h/Hives Review of Systems ROS Other: All systems not noted in ROS Statement are negative. <Lida Velez - Last Filed: 01/20/25 19:06> ROS Other: All systems not noted in ROS Statement are negative. <Tiera Crowder - Last Filed: 01/26/25 08:26> ROS Statement: Those systems with pertinent positive or pertinent negative responses have been documented in the HPI. Past Medical History Past Medical History: Cancer, GERD/Reflux, Osteoarthritis (OA) Additional Past Medical History / Comment(s): COLEMAN'S ESOPHAGUS , esophageal cancer-HAD CHEMO&RAD. Left Breast CA. Pancreatic CA. SORES ON LT FOREARM- HEALED. NARCOLEPSY. frequent VOMITTING and DIARRHEA, loss >=100lbs since 2022. OCCASSIONAL BLE EDEMA History of Any Multi-Drug Resistant Organisms: MRSA Date of last positivie culture/infection: 12/2016 MDRO Source:: PEG TUBE SITE Past Surgical History: Breast Surgery, Section, Cholecystectomy, Hernia Repair, Hysterectomy, Orthopedic Surgery, Tubal Ligation Additional Past Surgical History / Comment(s): ,colonoscopy, Left oopherectomy, 2/3rds ESOPHAGECTOMY with pullthrough 1/3rd GASTRECTOMY, PEG TUBE INSERTION AND REMOVAL R/T INFECTION. SCOPE LT KNEE, EGD, CYST REMOVED RT WRIST, C-SECT X 4, july 2023 at HF herniated hemothorax repair with mesh/ reconstructed diaphragm; left breast lumpectomy Past Anesthesia/Blood Transfusion Reactions: No Reported Reaction Additional Past Anesthesia/Blood Transfusion Reaction / Comment(s): no hx blood transfusion Past Psychological History: Anxiety, Depression Smoking Status: Former smoker Past Alcohol Use History: None Reported Past Drug Use History: None Reported - Past Family History Mother Family Medical History: Cancer Sister(s) Family Medical History: Cancer Brother(s) Family Medical History: Cancer <Lida Velez - Last Filed: 01/20/25 19:06> General Exam Limitations: no limitations General appearance: alert, in no apparent distress Head exam: Present: atraumatic, normocephalic, normal inspection Respiratory exam: Present: normal lung sounds bilaterally. Absent: respiratory distress, wheezes, rales, rhonchi, stridor Cardiovascular Exam: Present: regular rate, normal rhythm Neurological exam: Present: alert, oriented X3, CN II-XII intact Psychiatric exam: Present: normal affect, normal mood Skin exam: Present: warm, dry, intact, normal color. Absent: rash <Lida Velez - Last Filed: 01/20/25 19:06> Course Vital Signs 01/19/25 01/19/25 01/20/25 22:22 23:26 00:05 Temperature 98.3 F 98.1 F Pulse Rate 99 90 84 Respiratory 18 16 16 Rate Blood Pressure 138/83 134/80 134/79 O2 Sat by Pulse 99 99 97 Oximetry 01/20/25 01/20/25 01/20/25 00:15 00:35 01:45 Temperature 98.3 F 98.5 F 97.8 F Pulse Rate 84 90 85 Respiratory 16 16 16 Rate Blood Pressure 129/60 129/60 121/79 O2 Sat by Pulse Oximetry 01/20/25 01/20/25 01/20/25 01:46 02:04 02:24 Temperature 97.8 F 97.4 F L 97.4 F L Pulse Rate 82 80 87 Respiratory 16 16 16 Rate Blood Pressure 129/77 133/73 129/81 O2 Sat by Pulse 99 98 Oximetry 01/20/25 01/20/25 01/20/25 03:16 03:42 05:15 Temperature 97.5 F L 98.1 F Pulse Rate 84 86 85 Respiratory 16 16 16 Rate Blood Pressure 128/74 126/76 133/73 O2 Sat by Pulse 97 97 Oximetry 01/20/25 01/20/25 01/20/25 05:26 05:46 06:20 Temperature 98.1 F 98.4 F 98.3 F Pulse Rate 79 81 85 Respiratory 16 16 16 Rate Blood Pressure 127/79 127/72 127/75 O2 Sat by Pulse 98 97 96 Oximetry Medical Decision Making - Lab Data Result diagrams: 01/19/25 22:54 01/19/25 22:54 - Radiology Data Radiology results: report reviewed, image reviewed <Lida Velez - Last Filed: 01/20/25 19:06> - Lab Data Result diagrams: 01/19/25 22:54 01/19/25 22:54 <Tiera Crowder - Last Filed: 01/26/25 08:26> - Medical Decision Making This is a 64 year old female who presents to the emergency department for low hemoglobin. Was pt. sent in by a medical professional or institution? @ -No Did you speak to anyone other than the patient for history? @ -No Did you review nursing and triage notes? @ -Yes, and I agree, it is accurate with regards to the patient's symptoms. Were old charts reviewed? @ -Echocardiogram from 09/15/2023 revealing normal LV systolic function. Differential Diagnosis? @ -Alpha thalassemia, aplastic anemia, hemolytic anemia, iron deficiency anemia, acute blood loss anemia, pernicious anemia, low LDL cholesterol, megaloblastic anemia, B12 deficiency, folate deficiency, GI bleed, this is not meant to be an all-inclusive list. EKG interpreted by me (3pts min.)? @ -EKG interpreted by me demonstrating the following: Sinus rhythm. Ventricular rate 89 bpm, OH interval 140 ms, QRS duration 73 ms, QTc 419 ms. X-rays interpreted by me (1pt min.)? @ -Chest x-ray obtained, my interpretation identifies no localized consolidati ons or infiltrates. CT interpreted by me (1pt min.)? @ -Not obtained U/S interpreted by me (1pt. min.)? @ -Not obtained What testing was considered but not performed? (CT, X-rays, U/S, labs)? Why? @ -None What meds were considered but not given? Why? @ -None Did you discuss the management of the patient with other professionals? @ -No Did you reconcile home meds? @ -No Was smoking cessation discussed for >3mins.? @ -I discussed smoking cessation for greater than 3 minutes. The risk of smoking were discussed with the patient including but not limited to risks of cancer, stroke, coronary artery disease and COPD. Also discussed with patient were multiple methods of quitting smoking. Lastly we discussed the financial cost of smoking. Was critical care preformed (if so, how long)? @ -No Were there social determinants of health that impacted care today? How? (Homelessness, low income, unemployed, alcoholism, drug addiction, transportation, low edu. Level, literacy, decrease access to med. care, long-term, rehab)? @ -No Was there de-escalation of care discussed even if they declined? (Discuss DNR or withdrawal of care, Hospice)? @ -No What co-morbidities impacted this encounter? (DM, HTN, Smoking, COPD, CAD, Cancer, CVA, Hep., AIDS, mental health diagnosis, sleep apnea, morbid obesity)? @ -Pancreatic cancer, smoking Was patient admitted / discharged? @ -Discharged. Lab work demonstrates a hemoglobin of 5.0 and hematocrit of 15.9. She also has mild hypokalemia with a potassium of 3.1. 2 units of PRBCs ordered for transfusion along with 40 mEq of K-Dur. Chest x-ray demonstrates moderate left and small right pleural effusions. BNP 2110. Unclear if these are cancer related or from something like CHF. She did have a normal echocardiogram on 09/15/2023 demonstrating no impairment in LV systolic function. Additionally, she did also have small bilateral pleural effusions on her x-ray from 2 months ago. Platelets also returned low at 13,000. Given that she was having nosebleeds, order was placed for a dose of platelets to be transfused as well. Patient transfused with 2 units of PRBCs and 1 unit of platelets and tolerated this well. She did continue to request discharge home afterwards and was discharged home with family in stable condition. Advised follow-up with her PCP and oncologist. Case discussed with ED attending Dr. Crowder. Return precautions reviewed in depth, the patient is instructed to return to the emergency department with any new, worsening, or concerning symptoms. Patient verbalized understanding. Undiagnosed new problem with uncertain prognosis? @ -None Drug Therapy requiring intensive monitoring for toxicity (Heparin, Nitro, Insulin, Cardizem)? @ -None Were any procedures done? @ -None Diagnosis/symptom? @ -Chemotherapy-induced anemia, thrombocytopenia, hypokalemia Acute, or Chronic, or Acute on Chronic? @ -Acute Uncomplicated (without systemic symptoms) or Complicated (systemic symptoms)? @ -Complicated Side effects of treatment? @ -None Exacerbation, Progression, or Severe Exacerbation] @ -Not applicable Poses a threat to life or bodily function? @ -Yes, can be life-threatening if not addressed appropriately (Lida Velez) 35 minutes of critical care time for transfusion of blood products (Tiera Crowder) - Lab Data Lab Results 01/19/25 01/19/25 01/19/25 Range/Units 22:52 22:54 22:54 WBC 2.20 L (4.50-10.00) 10*3/uL RBC 1.49 L (4.10-5.20) 10*6/uL Hgb 5.0 L* D (12.0-15.0) g/dL Hct 15.9 L* (37.2-46.3) % MCV 106.7 H D (80.0-97.0) fL MCH 33.6 H (27.0-32.0) pg MCHC 31.4 L (32.0-37.0) g/dL Plt Count 13 L* D (140-440) 10*3/uL MPV 10.4 (9.5-12.2) fL Immature Gran % (Auto) 0.5 % Neutrophils % 56.8 % Lymphocytes % 33.6 % Monocytes % 8.6 % Eosinophils % 0.0 % Basophils % 0.5 % Immature Gran # 0.01 (0.00-0.04) 10*3/uL Neutrophils # 1.25 L (1.80-7.70) 10*3/uL Lymphocytes # 0.74 L (0.90-5.00) 10*3/uL Monocytes # 0.19 L (0.20-1.00) 10*3/uL Eosinophils # 0.00 L (0.04-0.35) 10*3/uL Basophils # 0.01 (0.00-0.10) 10*3/uL Manual Slide Review Performed Immature Plt Fraction 4.2 (1.1-6.1) % PT 11.0 (10.0-12.5) sec INR 1.0 (<1.2) APTT 23.4 (22.0-30.0) sec Sodium (137-145) mmol/L Potassium (3.5-5.1) mmol/L Chloride (98-107) mmol/L Carbon Dioxide (22-30) mmol/L Anion Gap mmol/L BUN (7-17) mg/dL Creatinine (0.52-1.04) mg/dL Est GFR (CKD-EPI)AfAm (>60 ml/min/1.73 sqM) Est GFR (CKD-EPI)NonAf (>60 ml/min/1.73 sqM) Glucose (74-99) mg/dL Calcium (8.4-10.2) mg/dL Magnesium (1.6-2.3) mg/dL Total Bilirubin (0.2-1.3) mg/dL AST (14-36) U/L ALT (4-34) U/L Alkaline Phosphatase (38-126) U/L NT-Pro-B Natriuret Pep pg/mL Total Protein (6.3-8.2) g/dL Albumin (3.5-5.0) g/dL Blood Type A Positive Blood Type Recheck A Pos Bld Type Recheck Status No Antibody Screen NEGATIVE Crossmatch See Detail Transfuse Platelets Spec Expiration Date 01/22/2025 - 235101/19/25 01/19/25 01/20/25 Range/Units 22:54 22:54 01:16 WBC (4.50-10.00) 10*3/uL RBC (4.10-5.20) 10*6/uL Hgb (12.0-15.0) g/dL Hct (37.2-46.3) % MCV (80.0-97.0) fL MCH (27.0-32.0) pg MCHC (32.0-37.0) g/dL Plt Count (140-440) 10*3/uL MPV (9.5-12.2) fL Immature Gran % (Auto) % Neutrophils % % Lymphocytes % % Monocytes % % Eosinophils % % Basophils % % Immature Gran # (0.00-0.04) 10*3/uL Neutrophils # (1.80-7.70) 10*3/uL Lymphocytes # (0.90-5.00) 10*3/uL Monocytes # (0.20-1.00) 10*3/uL Eosinophils # (0.04-0.35) 10*3/uL Basophils # (0.00-0.10) 10*3/uL Manual Slide Review Immature Plt Fraction (1.1-6.1) % PT (10.0-12.5) sec INR (<1.2) APTT (22.0-30.0) sec Sodium 137 (137-145) mmol/L Potassium 3.1 L (3.5-5.1) mmol/L Chloride 112 H (98-107) mmol/L Carbon Dioxide 17 L (22-30) mmol/L Anion Gap 8 mmol/L BUN 15 (7-17) mg/dL Creatinine 0.92 (0.52-1.04) mg/dL Est GFR (CKD-EPI)AfAm 76 (>60 ml/min/1.73 sqM) Est GFR (CKD-EPI)NonAf 66 (>60 ml/min/1.73 sqM) Glucose 96 (74-99) mg/dL Calcium 8.4 (8.4-10.2) mg/dL Magnesium 1.7 (1.6-2.3) mg/dL Total Bilirubin 0.1 L (0.2-1.3) mg/dL AST 47 H (14-36) U/L ALT 18 (4-34) U/L Alkaline Phosphatase 96 (38-126) U/L NT-Pro-B Natriuret Pep 2110 pg/mL Total Protein 4.6 L (6.3-8.2) g/dL Albumin 2.3 L (3.5-5.0) g/dL Blood Type Blood Type Recheck Bld Type Recheck Status Antibody Screen Crossmatch Transfuse Platelets 01/20/2025 Spec Expiration Date Disposition Is patient prescribed a controlled substance at d/c from ED?: No <Lida Velez - Last Filed: 01/20/25 19:06> <Tiera Crowder - Last Filed: 01/26/25 08:26> Clinical Impression: Antineoplastic chemotherapy induced anemia, Thrombocytopenia, Hypokalemia, Nicotine dependence Disposition: HOME SELF-CARE Instructions (If sedation given, give patient instructions): Hypokalemia (ED), Pancytopenia (DC) Additional Instructions: Return to the emergency department with any new, worsening, or concerning symptoms. Follow up with your primary care provider and your oncologist. Referrals: Eros Carlson DO [Primary Care Provider] - 1-2 days
[2025-01-19 23:03] LABS: Basophils # (A) 0.01 10*3/uL (0.00-0.10); Basophils % (A) 0.5 %; Eosinophils # (A) 0.00 10*3/uL (0.04-0.35); Eosinophils % (A) 0.0 %; Immature Platelet Fraction 4.2 % (1.1-6.1); Lymphocytes # (A) 0.74 10*3/uL (0.90-5.00); Lymphocytes % (A) 33.6 %; MCH 33.6 pg (27.0-32.0); MCHC 31.4 g/dL (32.0-37.0); Monocytes # (A) 0.19 10*3/uL (0.20-1.00); Monocytes % (A) 8.6 %; Neutrophils # (A) 1.25 10*3/uL (1.80-7.70); Neutrophils % (A) 56.8 %; RBC 1.49 10*6/uL (4.10-5.20); RDW 18.1 % (11.5-14.5); WBC 2.20 10*3/uL (4.50-10.00)
[2025-01-19 23:12] LABS: ALT 18 U/L (4-34); AST 47 U/L (14-36); African American GFR (CKD) 76 (>60 ml/min/1.73 sqM); Albumin 2.3 g/dL (3.5-5.0); Alkaline Phosphatase 96 U/L (38-126); Anion Gap 8 mmol/L; Blood Urea Nitrogen 15 mg/dL (7-17); Calcium 8.4 mg/dL (8.4-10.2); Carbon Dioxide 17 mmol/L (22-30); Chloride 112 mmol/L (98-107); Glucose 96 mg/dL (74-99); Magnesium 1.7 mg/dL (1.6-2.3); Non-African American GFR(CKD) 66 (>60 ml/min/1.73 sqM); Potassium 3.1 mmol/L (3.5-5.1); Sodium 137 mmol/L (137-145); Total Protein 4.6 g/dL (6.3-8.2)
[2025-01-19 23:14] LABS: HCT 15.9 % (37.2-46.3); HGB 5.0 g/dL (12.0-15.0); MCV 106.7 fL (80.0-97.0)
[2025-01-19 23:28] VITALS: RESP 16
[2025-01-19] MEDS: POTASSIUM CHLORIDE ER 20 MEQ TAB.ER PO STA (23:36)
[2025-01-19 23:37] LABS: INR 1.0 (<1.2); Partial Thromboplastin Time 23.4 sec (22.0-30.0); Prothrombin Time 11.0 sec (10.0-12.5)
--- NOTE | 2025-01-20 00:23 | XR ---
EXAM: XR Chest, 2 Views CLINICAL HISTORY: ITS.REASON XR Reason: RINKU TECHNIQUE: Frontal and lateral views of the chest. COMPARISON: No relevant prior studies available. FINDINGS: Lungs: Emphysema with flattening of the diaphragms, consistent with COPD. Pleural space: Moderate left and small right pleural effusions. No pneumothorax. Heart: Unremarkable. No cardiomegaly. Mediastinum: Unremarkable. Bones/joints: Unremarkable. Tubes, lines and devices: Right Port-A-Cath terminates in the SVC. IMPRESSION: 1. Moderate left and small right pleural effusions. 2. Emphysema with flattening of the diaphragms, consistent with COPD.
[2025-01-20 01:04] LABS: Platelet Count 13 10*3/uL (140-440)
[2025-01-20 06:22] VITALS: BP 127/75; PULSE 85; TEMP 98.3
== END 2025-01-20 06:44 | disposition home or self-care (01) ==
LOC: EC 22:18
DX: D64.81 Anemia due to antineoplastic chemotherapy (principal); D69.6 Thrombocytopenia, unspecified; E87.6 Hypokalemia; C25.9 Malignant neoplasm of pancreas, unspecified; F17.200 Nicotine dependence, unspecified, uncomplicated; Z88.0 Allergy status to penicillin; Z88.1 Allergy status to other antibiotic agents; Z88.8 Allergy status to other drugs, medicaments and biological substances
CPT/HCPCS: 99285 ×2; 36430 ×2; 36415; 93005; 86900; 86901; 83880; 80053; 83735; 85025; 85610; 85730; 86850; 86920; 71046; P9016; P9073